=== PATIENT | male | born 1960 | race African-American/Black ===

== ENCOUNTER 2016-11-17 09:30 | Inpatient (IN) | payer OTHER ==
[2016-11-17 09:43] VITALS: BMI 38.3
--- NOTE | 2016-11-17 10:13 | PDOC ---
History of Present Illness - General Chief Complaint: Pain Stated Complaint: DIZZINESS, ABD PAIN Time Seen by Provider: 11/17/16 10:13 History Source: Patient Exam Limitations: No Limitations - History of Present Illness Travel History: No Initial Comments: 11/17/16 11:09 56 yo M with significant PMHx of HTN and acute pancreatitis 2/2 alcohol abuse. He states for the past 3 days he has worsening abdominal pain. Pain is 9/10 intermittent sharp epigastric pain that radiates to his back. Accompanied by shakes, nausea and vomiting. No alleviating or aggrivating factors. Has had this problem in past. Drinks appox. 750ml of vodka daily. Last drink was one day ago. He has been experiencing shakes as well. Non-productive cough. Denies CP, MORRISSEY, fevers or palpitations. Past History - Past Medical History Allergies/Adverse Reactions: Allergies Allergy/AdvReac Type Severity Reaction Status Date / Time No Known Allergies Allergy Verified 11/17/16 09:43 Home Medications: Ambulatory Orders Amlodipine Besylate [Norvasc -] 10 mg PO DAILY 11/10/14 Atenolol [Tenormin -] 50 mg PO DAILY 11/10/14 HTN: Yes Hypercholesterolemia: Yes Suicide Attempt (Hx): No Other medical history: Alcohol Abuse - Psycho/Social/Smoking Cessation Hx Anxiety: No Suicidal Ideation: No Smoking History: Never smoked Have you smoked in the past 12 months: No Information on smoking cessation initiated: No Hx Alcohol Use: Yes (daily) Drug/Substance Use Hx: Yes (marijuana) Substance Use Type: None Hx Substance Use Treatment: No (has never attended rehab or detox.) Abd/GI Specific PMHX - Complaint Specific PMHX Pancreatitis: Yes Review of Systems - Review of Systems Able to Perform ROS?: Yes Is the patient limited [place] proficient: No Constitutional: Yes: Malaise, Weakness Respiratory: Yes: Cough Cardiac (ROS): No: Chest Pain, Palpitations ABD/GI: Yes: Diarrhea, Nausea, Poor Appetite Neurological: Yes: Tremors All Other Systems: Reviewed and Negative *Physical Exam - Vital Signs Last Vital Signs Temp Pulse Resp BP Pulse Ox 98.7 F 83 19 128/84 97 11/17/16 09:41 11/17/16 09:41 11/17/16 09:41 11/17/16 09:41 11/17/16 09:41 - Physical Exam General Appearance: Yes: Mild Distress HEENT: positive: EOMI, APRIL Neck: positive: Supple Respiratory/Chest: positive: Lungs Clear, Normal Breath Sounds, Crackles (fine bibasilar). negative: Respiratory Distress, Accessory Muscle Use Cardiovascular: positive: Regular Rhythm, Regular Rate, S1, S2. negative: Edema , JVD, Murmur Vascular Pulses: Dorsalis-Pedis (R): 2+, Doralis-Pedis (L): 2+ Gastrointestinal/Abdominal: positive: Normal Bowel Sounds, Distended, Tenderness (epigastric) Extremity: positive: Normal Capillary Refill, Normal Inspection Integumentary: positive: Normal Color, Dry, Warm. 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 ) ED Treatment Course - LABORATORY CBC & Chemistry Diagram: 11/17/16 10:18 11/17/16 10:18 Medical Decision Making - Medical Decision Making 11/17/16 11:22 56 yo M with significant PMHx of HTN and acute pancreatitis 2/2 alcohol abuse. He states for the past 3 days he has worsening abdominal pain.Will get amylase and lipase to help r/o acute pancreatitis. Tremors will give Valium for acute ETOH withdrawl. CXR , EKG and trops sent to r/o cardiopulmonary etiology. *DC/Admit/Observation/Transfer Diagnosis at time of Disposition: Pancreatitis Qualifiers: Chronicity: acute Pancreatitis type: alcohol induced Acute pancreatitis complication: unspecified Qualified Code(s): K85.20 - Alcohol induced acute pancreatitis without necrosis or infection Alcohol withdrawal syndrome Qualifiers: Complication of substance-induced condition: with unspecified complication Qualified Code(s): F10.239 - Alcohol dependence with withdrawal, unspecified - Discharge Dispostion Condition at time of disposition: Stable Admit: Yes
[2016-11-17] MEDS ORDERED: diazePAM CARPU-JECT 10 MG/2 ML DISP.SYRIN IVPUSH ONE ×2 (10:29→11:06)
[2016-11-17] MEDS ORDERED: SODIUM CHLORIDE 1,000 ML IV STA (10:30)
[2016-11-17] MEDS ORDERED: diazePAM CARPU-JECT 10 MG/2 ML DISP.SYRIN ONE ×2 (10:31→11:06)
[2016-11-17] MEDS ORDERED: ONDANSETRON 4 MG/2 ML VIAL IVPUSH ONE (10:32)
[2016-11-17] MEDS ORDERED: ONDANSETRON 4 MG/2 ML VIAL ONE (10:36)
[2016-11-17 10:48] LABS: BASOPHIL 1.4 % (0-2.0); EOSINOPHIL 0.7 % (0-4.5); MCH 30.4 pg (25.7-33.7); MCHC 33.1 g/dl (32.0-35.9); MEAN CELL VOLUME 91.8 fl (80-96); MEAN PLT VOLUME 8.8 fl (7.5-11.1); PLATELET COUNT 108 K/MM3 (134-434); RDW 17.9 % (11.9-15.9); WHITE BLOOD COUNT 5.5 K/mm3 (4.0-10.0)
[2016-11-17 11:06] LABS: ALBUMIN 3.8 g/dl (3.4-5.0); AMYLASE 151 U/L (25-115); ANION GAP 11 (8-16); CALCIUM 9.7 mg/dL (8.5-10.1); CO2 26 mmol/L (21-32); COCKROFT - GAULT 118.38; CREATININE 1.2 mg/dL (0.7-1.3); GLUCOSE,RANDOM 108 mg/dL (74-106); SGPT/ALT 41 U/L (12-78)
[2016-11-17 11:09] LABS: ALK PHOS 291 U/L (45-117); BILIRUBIN,TOTAL 1.3 mg/dL (0.2-1.0); TOT PROT 8.8 g/dl (6.4-8.2)
[2016-11-17 11:12] LABS: SGOT/AST 94 U/L (15-37)
--- NOTE | 2016-11-17 11:20 | PDOC ---
Attending Attestation - Resident Resident Name: Gerson Chavez - ED Attending Attestation I have performed the following: I have examined & evaluated the patient, The case was reviewed & discussed with the resident, I agree w/resident's findings & plan, Exceptions are as noted - HPI HPI: 11/17/16 11:17 56-year-old male with history of alcohol abuse complicated by gastritis and pancreatitis in the past now presents with worsening generalized weakness, chest congestion with cough, and epigastric pain. Last EtOH intake was around 12 PM yesterday, reporting some tremors this morning. - Physicial Exam PE: 11/17/16 11:18 Afebrile. O2 sat 91% off oxygen, improves with oxygen Tremulous, but comfortable in stretcher speaking full sentences Slight basilar crackles, heart is regular Abdomen is distended but soft and not focally tender, no guarding or rebound - Medical Decision Making 11/17/16 11:19 Patient seen and evaluated with the resident. I agree with the overall evaluation, assessment, and management with the following summary of visit: 56-year-old male with history of alcoholism and pancreatitis presents with generalized weakness and epigastric pain, tremors. Presenting complaint of weakness epigastric pain could be recurrence of gastritis or pancreatitis, also concerning for possible cardiopulmonary etiology. Early withdrawal in the setting of no EtOH for the last 12 hours, vital signs and mental status are normal. Labs including lipase and troponin, urinalysis EKG, chest x-ray Valium for withdrawal Likely admission Heart Score/ECG Review #1 General ECG Interpretation: Sinus Rhythm, Normal Rate, Normal Intervals, No acute ischemic changes
[2016-11-17 11:36] LABS: LDH 407 U/L (87-241); TROPONIN I < 0.02 ng/ml (0.00-0.05)
--- NOTE | 2016-11-17 13:09 | EKG ---
Test Reason : Blood Pressure : / mmHG Vent. Rate : 074 BPM Atrial Rate : 074 BPM P-R Int : 162 ms QRS Dur : 086 ms QT Int : 342 ms P-R-T Axes : 054 -12 110 degrees QTc Int : 379 ms POOR DATA QUALITY, INTERPRETATION MAY BE ADVERSELY AFFECTED NORMAL SINUS RHYTHM NONSPECIFIC T WAVE ABNORMALITY ABNORMAL ECG WHEN COMPARED WITH ECG OF 10-NOV-2014 13:41, VENT. RATE HAS DECREASED BY 48 BPM Confirmed by SOREN SRINIVASAN MD ([id number]) on 11/17/2016 1:08:52 PM Referred By: Confirmed By:SOREN SRINIVASAN MD
[2016-11-17] MEDS ORDERED: chlordiazePOXIDE HCL 25 MG CAPSULE PO ONE (13:12)
[2016-11-17] MEDS ORDERED: chlordiazePOXIDE HCL 25 MG CAPSULE ONE (13:34)
[2016-11-17] MEDS ORDERED: POTASSIUM CHLORIDE 10 MEQ in DEXTROSE 5%-0.45% SALINE 1,000 ML IVPB SCH (16:00)
[2016-11-17] MEDS ORDERED: MEPERIDINE HCL CARPU-JECT 50 MG/1 ML DISP.SYRIN IM PRN (16:00)
[2016-11-17] MEDS: D5-1/2NS+10 MEQ KCL - 1,000 ML IV SCH (16:12)
[2016-11-17] MEDS: ONDANSETRON 4 MG/2 ML VIAL IVPB PRN (19:43)
[2016-11-18] MEDS: D5-1/2NS+10 MEQ KCL - 1,000 ML IV SCH ×3 (02:45→23:03)
[2016-11-18] MEDS: ONDANSETRON 4 MG/2 ML VIAL IVPB PRN (05:50)
[2016-11-18 07:04] LABS: BASOPHIL 0.7 % (0-2.0); EOSINOPHIL 0.8 % (0-4.5); MCH 30.2 pg (25.7-33.7); MCHC 32.9 g/dl (32.0-35.9); MEAN CELL VOLUME 91.8 fl (80-96); MEAN PLT VOLUME 9.2 fl (7.5-11.1); NEUTROPHILS 67.8 % (42.8-82.8); PLATELET COUNT 76 K/MM3 (134-434); RDW 17.1 % (11.9-15.9); WHITE BLOOD COUNT 6.6 K/mm3 (4.0-10.0)
[2016-11-18 07:29] LABS: ALBUMIN 3.4 g/dl (3.4-5.0); ALK PHOS 221 U/L (45-117); AMYLASE 136 U/L (25-115); ANION GAP 10 (8-16); BILIRUBIN,TOTAL 2.2 mg/dL (0.2-1.0); CALCIUM 8.6 mg/dL (8.5-10.1); CO2 26 mmol/L (21-32); COCKROFT - GAULT 129.14; CREATININE 1.1 mg/dL (0.7-1.3); GLUCOSE,RANDOM 101 mg/dL (74-106); SGOT/AST 52 U/L (15-37); SGPT/ALT 30 U/L (12-78)
--- NOTE | 2016-11-18 09:35 | HP ---
DATE OF ADMISSION: DATE OF DICTATION: 11/18/2016 A 56-year-old male, nonalcoholic, hypertensive, came to the emergency room with complaints of abdominal pain and throwing up. He was diagnosed to have acute pancreatitis, got admitted. About 2 years ago he was admitted with similar complaints. He is from his , has grownup son, not employed. PHYSICAL EXAMINATION: Vital Signs: BP 147/83, pulse 83, temperature 99, respirations 20. HEENT: Unremarkable. Neck: Supple. Lungs: Clear. Heart: S1, S2 normal. No S3, S4. Abdomen: Minimal tenderness in the epigastric area. Legs: No edema. Neurological: Examination grossly normal. LABORATORY REPORTS: WBC 6.6, hemoglobin 12, hematocrit 36, platelets 76. Chemistry: Electrolytes: Potassium 3.4. BUN and creatinine are 10/1.1. AST, ALT are 52 and 30. Amylase high at 151. Lipase 671. Chest x-ray: No infiltrate. IMPRESSION: Acute pancreatitis, alcohol abuse, hypertension. PLAN: Keep IV fluid. Will start liquid diet later. Librium and thiamine. Continue his blood pressure medicine. Nghia [id number]
[2016-11-18] MEDS: THIAMINE HCL 100 MG TABLET (FP) PO SCH (09:49)
[2016-11-18] MEDS: amLODIPine BESYLATE 10 MG TABLET (FP) PO SCH (09:49)
[2016-11-18] MEDS: ATENOLOL 50 MG TABLET (FP) PO SCH (09:49)
[2016-11-18] MEDS: chlordiazePOXIDE 5 MG CAPSULE PO SCH ×3 (11:22→23:23)
[2016-11-19] MEDS: chlordiazePOXIDE 5 MG CAPSULE PO SCH ×4 (06:00→23:35)
[2016-11-19] MEDS: THIAMINE HCL 100 MG TABLET (FP) PO SCH (09:35)
[2016-11-19] MEDS: D5-1/2NS+10 MEQ KCL - 1,000 ML IV SCH ×3 (09:35→21:32)
[2016-11-19] MEDS: amLODIPine BESYLATE 10 MG TABLET (FP) PO SCH ×2 (09:36→17:30)
[2016-11-19] MEDS: ATENOLOL 50 MG TABLET (FP) PO SCH ×2 (09:36→17:30)
[2016-11-19] MEDS: POTASSIUM CHLORIDE TABS 20 MEQ TABLET.ER (FP) PO SCH ×2 (18:53→21:32)
--- NOTE | 2016-11-19 19:52 | PN ---
Progress Note, Physician Chief Complaint: Feels better History of Present Illness: Admitted with acute pancreatits Feels better pain less,no vomiting - Current Medication List Current Medications: Active Medications Amlodipine Besylate (Norvasc -) 10 mg PO DAILY [facility] Last Admin: 11/19/16 17:30 Dose: 10 mg Atenolol (Tenormin -) 50 mg PO DAILY [facility] Last Admin: 11/19/16 17:30 Dose: 50 mg Chlordiazepoxide HCl (Librium -) 15 mg PO Q6HPO [facility] Last Admin: 11/19/16 17:33 Dose: 15 mg Potassium Chloride/Dextrose/Sod Cl (D5-1/2ns+10 Meq Kcl -) 1,000 mls @ 100 mls/ hr IV ASDIR [facility] Last Admin: 11/19/16 17:31 Dose: Not Given Meperidine HCl (Demerol Injection -) 50 mg IM Q6H PRN PRN Reason: PAIN Last Admin: 11/17/16 18:04 Dose: 50 mg Ondansetron HCl (Zofran Injection) 4 mg IVPB Q8H PRN PRN Reason: NAUSEA AND/OR VOMITING Last Admin: 11/18/16 05:50 Dose: 4 mg Potassium Chloride (K-Dur -) 20 meq PO BID [facility] Last Admin: 11/19/16 18:53 Dose: 20 meq Thiamine HCl (Vitamin B1 -) 100 mg PO DAILY [facility] Last Admin: 11/19/16 09:35 Dose: 100 mg - Objective Vital Signs: Vital Signs Temperature 98.7 F 11/19/16 13:55 Pulse Rate 96 H 11/19/16 13:55 Respiratory Rate 20 11/19/16 09:00 Blood Pressure 150/76 11/19/16 13:55 O2 Sat by Pulse Oximetry (%) 97 11/19/16 09:00 Constitutional: Yes: No Distress Eyes: Yes: WNL HENT: Yes: WNL Neck: Yes: WNL Cardiovascular: Yes: WNL Respiratory: Yes: WNL Gastrointestinal: Yes: Normal Bowel Sounds Labs: CBC, BMP 11/18/16 06:30 11/18/16 06:30 Assessment/Plan Advance diet
[2016-11-20] MEDS: chlordiazePOXIDE 5 MG CAPSULE PO SCH ×4 (06:11→23:38)
[2016-11-20] MEDS: D5-1/2NS+10 MEQ KCL - 1,000 ML IV SCH (06:17)
[2016-11-20] MEDS ORDERED: PT OWN MED DRAWER 7, Y5N ONE (06:53)
[2016-11-20 08:17] LABS: MCH 30.4 pg (25.7-33.7); MCHC 32.9 g/dl (32.0-35.9); MEAN CELL VOLUME 92.3 fl (80-96); MEAN PLT VOLUME 10.2 fl (7.5-11.1); PLATELET COUNT 70 K/MM3 (134-434); RDW 16.5 % (11.9-15.9); WHITE BLOOD COUNT 7.9 K/mm3 (4.0-10.0)
[2016-11-20 08:52] LABS: CALCIUM 8.9 mg/dL (8.5-10.1)
[2016-11-20 08:54] LABS: COCKROFT - GAULT 129.14; CREATININE 1.1 mg/dL (0.7-1.3)
[2016-11-20] MEDS: ATENOLOL 50 MG TABLET (FP) PO SCH (09:33)
[2016-11-20] MEDS: THIAMINE HCL 100 MG TABLET (FP) PO SCH (09:34)
[2016-11-20] MEDS: amLODIPine BESYLATE 10 MG TABLET (FP) PO SCH (09:34)
[2016-11-20] MEDS: POTASSIUM CHLORIDE TABS 20 MEQ TABLET.ER (FP) PO SCH ×2 (09:34→21:40)
--- NOTE | 2016-11-20 13:00 | PN ---
Progress Note, Physician Chief Complaint: Pain and selling Lt knee History of Present Illness: No abdominal pain,tolerate regular diet - Current Medication List Current Medications: Active Medications Amlodipine Besylate (Norvasc -) 10 mg PO DAILY [facility] Last Admin: 11/20/16 09:34 Dose: 10 mg Atenolol (Tenormin -) 50 mg PO DAILY [facility] Last Admin: 11/20/16 09:33 Dose: 50 mg Chlordiazepoxide HCl (Librium -) 15 mg PO Q6HPO [facility] Last Admin: 11/20/16 11:50 Dose: 15 mg Potassium Chloride/Dextrose/Sod Cl (D5-1/2ns+10 Meq Kcl -) 1,000 mls @ 100 mls/ hr IV ASDIR [facility] Last Admin: 11/20/16 06:17 Dose: 100 mls/hr Meperidine HCl (Demerol Injection -) 50 mg IM Q6H PRN PRN Reason: PAIN Last Admin: 11/17/16 18:04 Dose: 50 mg Ondansetron HCl (Zofran Injection) 4 mg IVPB Q8H PRN PRN Reason: NAUSEA AND/OR VOMITING Last Admin: 11/18/16 05:50 Dose: 4 mg Potassium Chloride (K-Dur -) 20 meq PO BID [facility] Last Admin: 11/20/16 09:34 Dose: 20 meq Thiamine HCl (Vitamin B1 -) 100 mg PO DAILY [facility] Last Admin: 11/20/16 09:34 Dose: 100 mg - Objective Vital Signs: Vital Signs Temperature 99.0 F 11/20/16 05:59 Pulse Rate 73 11/20/16 05:59 Respiratory Rate 20 11/20/16 05:59 Blood Pressure 127/70 11/20/16 05:59 O2 Sat by Pulse Oximetry (%) 97 11/19/16 21:00 Constitutional: Yes: No Distress Eyes: Yes: WNL HENT: Yes: WNL Neck: Yes: WNL Cardiovascular: Yes: WNL Respiratory: Yes: WNL Gastrointestinal: Yes: Soft ...Rectal Exam: Yes: Deferred Genitourinary: Yes: WNL Musculoskeletal: Yes: Joint Swelling Edema: LLE: Trace Integumentary: Yes: WNL Neurological: Yes: Alert Psychiatric: Yes: Alert Labs: CBC, BMP 11/20/16 07:00 11/20/16 07:00 Assessment/Plan Possible gout,will start colchicine DC IV
[2016-11-20] MEDS ORDERED: COLCHICINE 0.6 MG TABLET (FP) PO ONE (13:01)
[2016-11-20] MEDS ORDERED: NAPROXEN 500 MG TABLET (FP) PO ONE (21:30)
[2016-11-21] MEDS: chlordiazePOXIDE 5 MG CAPSULE PO SCH ×3 (05:54→17:55)
[2016-11-21] MEDS: THIAMINE HCL 100 MG TABLET (FP) PO SCH (09:36)
[2016-11-21] MEDS: POTASSIUM CHLORIDE TABS 20 MEQ TABLET.ER (FP) PO SCH ×2 (09:36→22:15)
[2016-11-21] MEDS: amLODIPine BESYLATE 10 MG TABLET (FP) PO SCH (09:36)
[2016-11-21] MEDS: ATENOLOL 50 MG TABLET (FP) PO SCH (09:36)
--- NOTE | 2016-11-21 13:58 | PN ---
Progress Note, Physician Chief Complaint: C/O Lt knee pain History of Present Illness: Alcoholic admitted with Ac pancreatitis Now has gout - Current Medication List Current Medications: Active Medications Amlodipine Besylate (Norvasc -) 10 mg PO DAILY [facility] Last Admin: 11/21/16 09:36 Dose: 10 mg Atenolol (Tenormin -) 50 mg PO DAILY [facility] Last Admin: 11/21/16 09:36 Dose: 50 mg Chlordiazepoxide HCl (Librium -) 15 mg PO Q6HPO [facility] Last Admin: 11/21/16 11:51 Dose: 15 mg Ondansetron HCl (Zofran Injection) 4 mg IVPB Q8H PRN PRN Reason: NAUSEA AND/OR VOMITING Last Admin: 11/18/16 05:50 Dose: 4 mg Potassium Chloride (K-Dur -) 20 meq PO BID [facility] Last Admin: 11/21/16 09:36 Dose: 20 meq Thiamine HCl (Vitamin B1 -) 100 mg PO DAILY [facility] Last Admin: 11/21/16 09:36 Dose: 100 mg - Objective Vital Signs: Vital Signs Temperature 98.2 F 11/21/16 09:00 Pulse Rate 94 H 11/21/16 09:00 Respiratory Rate 18 11/21/16 09:00 Blood Pressure 126/84 11/21/16 09:00 O2 Sat by Pulse Oximetry (%) 97 11/20/16 21:00 Constitutional: Yes: No Distress, Mild Distress Eyes: Yes: WNL, Occular Prosthesis Neck: Yes: WNL Cardiovascular: Yes: WNL Respiratory: Yes: WNL Gastrointestinal: Yes: Normal Bowel Sounds ...Rectal Exam: Yes: WNL Genitourinary: Yes: WNL Extremities: Yes: Other (Lt knee has minimal swelling) Edema: No Integumentary: Yes: WNL Neurological: Yes: Alert ...Motor Strength: WNL Labs: CBC, BMP 11/20/16 07:00 11/20/16 07:00
[2016-11-21] MEDS ORDERED: COLCHICINE 0.6 MG TABLET (FP) PO ONE (15:00)
[2016-11-21] MEDS: INDOMETHACIN 50 MG CAPSULE PO SCH (17:55)
[2016-11-21] MEDS ORDERED: PT OWN MED DRAWER 7, Y5N ONE (18:14)
[2016-11-22] MEDS: chlordiazePOXIDE 5 MG CAPSULE PO SCH ×5 (00:33→23:33)
[2016-11-22] MEDS ORDERED: PT OWN MED DRAWER 7, Y5N ONE (09:18)
--- NOTE | 2016-11-22 09:40 | PN ---
Progress Note, Physician Chief Complaint: Pain Lt knee History of Present Illness: Admitted with acute pancreatitis Has gout - Current Medication List Current Medications: Active Medications Amlodipine Besylate (Norvasc -) 10 mg PO DAILY [facility] Last Admin: 11/21/16 09:36 Dose: 10 mg Atenolol (Tenormin -) 50 mg PO DAILY [facility] Last Admin: 11/21/16 09:36 Dose: 50 mg Chlordiazepoxide HCl (Librium -) 15 mg PO Q6HPO [facility] Last Admin: 11/22/16 06:18 Dose: 15 mg Indomethacin (Indocin -) 50 mg PO BIDWM [facility] Last Admin: 11/21/16 17:55 Dose: 50 mg Ondansetron HCl (Zofran Injection) 4 mg IVPB Q8H PRN PRN Reason: NAUSEA AND/OR VOMITING Last Admin: 11/18/16 05:50 Dose: 4 mg Potassium Chloride (K-Dur -) 20 meq PO BID [facility] Last Admin: 11/21/16 22:15 Dose: 20 meq Thiamine HCl (Vitamin B1 -) 100 mg PO DAILY [facility] Last Admin: 11/21/16 09:36 Dose: 100 mg - Objective Vital Signs: Vital Signs Temperature 98.2 F 11/22/16 06:02 Pulse Rate 111 H 11/22/16 06:02 Respiratory Rate 20 11/22/16 06:02 Blood Pressure 129/57 11/22/16 06:02 O2 Sat by Pulse Oximetry (%) 97 11/21/16 22:00 Constitutional: Yes: Moderate Distress Eyes: Yes: WNL HENT: Yes: WNL Neck: Yes: WNL Cardiovascular: Yes: WNL Respiratory: Yes: WNL Gastrointestinal: Yes: Normal Bowel Sounds ...Rectal Exam: Yes: Deferred Genitourinary: Yes: WNL Extremities: Yes: Other (Lt knee swelling) Peripheral Pulses WNL: Yes Neurological: Yes: Alert Labs: CBC, BMP 11/20/16 07:00 11/20/16 07:00 Assessment/Plan PT for ambulation
[2016-11-22] MEDS: amLODIPine BESYLATE 10 MG TABLET (FP) PO SCH (09:46)
[2016-11-22] MEDS: ATENOLOL 50 MG TABLET (FP) PO SCH (09:46)
[2016-11-22] MEDS: THIAMINE HCL 100 MG TABLET (FP) PO SCH (09:46)
[2016-11-22] MEDS: INDOMETHACIN 50 MG CAPSULE PO SCH ×2 (09:46→17:06)
[2016-11-22] MEDS: POTASSIUM CHLORIDE TABS 20 MEQ TABLET.ER (FP) PO SCH ×2 (09:46→21:57)
[2016-11-22] MEDS ORDERED: COLCHICINE 0.6 MG TABLET (FP) PO ONE (10:30)
[2016-11-23] MEDS: chlordiazePOXIDE 5 MG CAPSULE PO SCH ×2 (05:47→12:59)
[2016-11-23 06:08] VITALS: BP 117/77; PULSE 111; TEMP 98.9
[2016-11-23 08:28] LABS: MCH 30.4 pg (25.7-33.7); MCHC 33.1 g/dl (32.0-35.9); MEAN PLT VOLUME 10.7 fl (7.5-11.1); PLATELET COUNT 140 K/MM3 (134-434); RDW 15.7 % (11.9-15.9); WHITE BLOOD COUNT 8.8 K/mm3 (4.0-10.0)
[2016-11-23] MEDS ORDERED: PT OWN MED DRAWER 7, Y5N ONE (08:56)
[2016-11-23 09:02] LABS: CALCIUM 8.9 mg/dL (8.5-10.1)
[2016-11-23] MEDS: INDOMETHACIN 50 MG CAPSULE PO SCH (09:03)
[2016-11-23 09:11] LABS: ALBUMIN 2.8 g/dl (3.4-5.0); ALK PHOS 367 U/L (45-117); ANION GAP 15 (8-16); BILIRUBIN,TOTAL 2.8 mg/dL (0.2-1.0); CO2 20 mmol/L (21-32); COCKROFT - GAULT 118.38; CREATININE 1.2 mg/dL (0.7-1.3); GLUCOSE,RANDOM 86 mg/dL (74-106); SGOT/AST 33 U/L (15-37); SGPT/ALT 29 U/L (12-78); TOT PROT 7.3 g/dl (6.4-8.2)
[2016-11-23 09:24] LABS: URIC ACID 8.1 mg/dL (2.6-7.2)
--- NOTE | 2016-11-23 09:33 | DS ---
Physical Examination Vital Signs: Vital Signs Temperature 98.9 F 11/23/16 06:07 Pulse Rate 111 H 11/23/16 06:07 Respiratory Rate 18 11/23/16 06:07 Blood Pressure 117/77 11/23/16 06:07 O2 Sat by Pulse Oximetry (%) 97 11/22/16 21:00 Findings/Remarks: Ac pancratitis resolved Gout pain improved Constitutional: Yes: No Distress HENT: Yes: WNL Neck: Yes: WNL Cardiovascular: Yes: WNL Respiratory: Yes: WNL Gastrointestinal: Yes: Normal Bowel Sounds ...Rectal Exam: Yes: Deferred Musculoskeletal: Yes: Joint Swelling, Muscle Weakness Edema: No Peripheral Pulses WNL: Yes Neurological: Yes: Alert Psychiatric: Yes: WNL Labs: CBC, BMP 11/23/16 07:45 11/23/16 07:45 Discharge Summary Reason For Visit: ALCOHOL WITHDRAWAL SYNDROME,PANCREATITIS Current Active Problems Alcohol withdrawal (Acute) Pancreatitis (Acute) - Instructions Referrals: Jaskaran Aguayo MD [Primary Care Provider] - - Home Medications Comprehensive Discharge Medication List: Ambulatory Orders Amlodipine Besylate [Norvasc -] 10 mg PO DAILY 11/10/14 Atenolol [Tenormin -] 50 mg PO DAILY 11/10/14
[2016-11-23] MEDS: THIAMINE HCL 100 MG TABLET (FP) PO SCH (09:43)
[2016-11-23] MEDS: ATENOLOL 50 MG TABLET (FP) PO SCH (09:44)
[2016-11-23] MEDS: POTASSIUM CHLORIDE TABS 20 MEQ TABLET.ER (FP) PO SCH (09:44)
[2016-11-23] MEDS: amLODIPine BESYLATE 10 MG TABLET (FP) PO SCH (09:44)
== END 2016-11-23 13:50 | disposition home or self-care (01) | DRG 282 ==
LOC: JER 09:30 → JERBED 13:15 → J6S 14:32
PROVIDERS: ADMIT Internal Medicine; ATTEND Internal Medicine
PROC: HZ2ZZZZ Detoxification Services for Substance Abuse Treatment (ICD-10-PCS; principal; 2016-11-17)
DX: K85.20 Alcohol induced acute pancreatitis without necrosis or infection (principal); F10.230 Alcohol dependence with withdrawal, uncomplicated; I10 Essential (primary) hypertension; F12.10 Cannabis abuse, uncomplicated; M10.9 Gout, unspecified; M25.562 Pain in left knee
CPT/HCPCS: 36415; 71010-TC; 80048; 80053; 82150; 83615; 83690; 83880; 84484; 84550; 85025; 85027; 93005; 93010; 97116-GP; 97161-GP; 99285-25

== ENCOUNTER 2017-11-12 20:04 | Emergency (ER) | payer OTHER ==
[2017-11-12 20:16] VITALS: BP 132/91; PULSE 82; TEMP 98.2; BMI 38.6
--- NOTE | 2017-11-12 21:04 | PDOC ---
History of Present Illness - General Chief Complaint: Weakness Stated Complaint: FATIGUE Time Seen by Provider: 11/12/17 20:29 History Source: Patient - History of Present Illness Initial Comments: 11/12/17 21:08 57 year old male with a PMH of HTN and alcohol abuse presents to our ED c/o 1 day h/o abdominal pain as well as palpitations during bowel movements. Patient states the pain is epigastric, constant, 10/10 with no radiation. Patient notes some associated nausea but no vomiting. Denies any diarrhea/constipation , dysuria/hematuria. Patient is tolerating PO intake and states his last bowel movement was this morning and was normal. ROS is positive for non-productive cough which is chronic. Patient notes he was told by his PMD he needed a colonoscopy. Denies any bloody bowel movements or family h/o colon CA. Patient denies any chest pain, shortness of breath, recent travel or sick contacts. NKDA Surgical: denies Social: unspecified vodka daily, 11/12/17 21:15 Past History - Past Medical History Allergies/Adverse Reactions: Allergies Allergy/AdvReac Type Severity Reaction Status Date / Time No Known Allergies Allergy Verified 11/12/17 20:17 Home Medications: Ambulatory Orders Amlodipine Besylate [Norvasc -] 10 mg PO DAILY 11/10/14 Atenolol [Tenormin -] 50 mg PO DAILY 11/10/14 Omeprazole 20 mg PO BID #10 tablet. 11/13/17 HTN: Yes Hypercholesterolemia: Yes - Suicide/Smoking/Psychosocial Hx Smoking History: Never smoked Have you smoked in the past 12 months: No Information on smoking cessation initiated: No Hx Alcohol Use: No Drug/Substance Use Hx: No Substance Use Type: None Hx Substance Use Treatment: No (has never attended rehab or detox.) *Physical Exam - Vital Signs Last Vital Signs Temp Pulse Resp BP Pulse Ox 98.2 F 82 16 132/91 99 11/12/17 20:12 11/12/17 20:12 11/12/17 20:12 11/12/17 20:12 11/12/17 20:12 ED Treatment Course - LABORATORY CBC & Chemistry Diagram: 11/12/17 21:30 11/12/17 21:30 Medical Decision Making - Medical Decision Making 11/13/17 00:35 57 year old male - GERD w/ Valsalva *DC/Admit/Observation/Transfer Diagnosis at time of Disposition: GERD (gastroesophageal reflux disease) - Discharge Dispostion Disposition: HOME Condition at time of disposition: Good Admit: No - Prescriptions Prescriptions: Omeprazole 20 mg PO BID #10 tablet.dr - Referrals Referrals: Jaskaran Aguayo MD [Primary Care Provider] - - Patient Instructions Printed Discharge Instructions: Heartburn -- Overview Additional Instructions: A prescription has been called to your pharmacy for relief of your abdominal pain. Follow up with your primary care doctor in the next 48 hours. Return to the Emergency Department for any new/worsening/concerning symptoms. - Post Discharge Activity
[2017-11-12] MEDS ORDERED: SODIUM CHLORIDE 0.9% 500 ML INFUS.BAG IV ONE (21:06)
--- NOTE | 2017-11-12 21:25 | PDOC ---
Attending Attestation - Resident Resident Name: Dena Gandara - ED Attending Attestation I have performed the following: I have examined & evaluated the patient, The case was reviewed & discussed with the resident, I agree w/resident's findings & plan, Exceptions are as noted - HPI HPI: 11/14/17 20:28 Mr Tirado is a 57 yo M h/o HTN, HLD and alcohol abuse who presents to our ED c/ o 1 day h/o abdominal pain Pt states he has for some time noted palpitations when he has a bowel movement in the morning Patient states he has noted epigastric pain, rated 10/10, constant (+) nausea nor vomiting Pt admits to alcohol use this evening Pt denies chest pain, shortness of breath Patient is tolerating PO intake and states his last bowel movement was this morning and was normal. ROS is positive for non-productive cough which is chronic. Pt has reported these symptoms to PMD who recommended Colonoscopy in the past - Physicial Exam PE: 11/14/17 20:38 PT is awake and alert Pt RRR Lungs are clear to auscultation no epigastric tenderness Neurologically intact - Medical Decision Making 11/14/17 20:38 Mr Tirado is a 57 yo M presenting to the ER with a complaints of palpitations, epigastric pain DD: ACS unlikely, pancreatitis, alcoholic gastritis Will do: Labs EKG Protonix IV hydration Re assess 11/14/17 20:42 Laboratory Tests 11/12/17 11/12/17 11/12/17 21:30 21:30 21:30 WBC 4.7 D Hgb 11.8 Hct 34.6 L Plt Count 152 Sodium 141 Potassium 3.4 L Chloride 110 H Carbon Dioxide 24 BUN 9 D Creat Clearance w eGFR > 60 Random Glucose 88 Total Bilirubin 0.6 D Alkaline Phosphatase 239 H D Creatine Kinase 549 H Creatine Kinase Index 0.5 CK-MB (CK-2) 2.790 Troponin I < 0.02 Lipase [address] Aguayo will discharge to home Pt to follow up with PMD Return to the ER for any other concerns or complaints Clinical Impression: gastritis, initial presentation palpitations, initial presentation
[2017-11-12 21:42] LABS: BASO % 1.5 % (0-2.0); EOS % 1.2 % (0-4.5); HEMATOCRIT 34.6 % (35.4-49); HEMOGLOBIN 11.8 GM/dL (11.7-16.9); MCHC 34.2 g/dl (32.0-35.9); MEAN CELL VOLUME 87.7 fl (80-96); MEAN PLT VOLUME 8.5 fl (7.5-11.1); MONO % 12.3 % (3.8-10.2); PLATELET COUNT 152 K/MM3 (134-434); RBC 3.94 M/mm3 (4.00-5.60); RDW 16.6 % (11.9-15.9); WHITE BLOOD COUNT 4.7 K/mm3 (4.0-10.0)
[2017-11-12 22:10] LABS: N-TERMINAL BNP 14.67 pg/ml (5-125)
[2017-11-12 22:11] LABS: ALBUMIN 3.8 g/dl (3.4-5.0); ANION GAP 7 (8-16); BILIRUBIN,TOTAL 0.6 mg/dL (0.2-1.0); BLOOD UREA NITROGEN 9 mg/dL (7-18); CALCIUM 8.9 mg/dL (8.5-10.1); CHLORIDE 110 mmol/L (98-107); CO2 24 mmol/L (21-32); CREATININE 1.2 mg/dL (0.7-1.3); GLUCOSE,RANDOM 88 mg/dL (74-106); LIPASE 126 U/L (73-393); POTASSIUM 3.4 mmol/L (3.5-5.1); SGOT/AST 94 U/L (15-37); SGPT/ALT 35 U/L (12-78); SODIUM 141 mmol/L (136-145); TOT PROT 8.8 g/dl (6.4-8.2)
[2017-11-12 22:12] LABS: ALK PHOS 239 U/L (45-117)
--- NOTE | 2017-11-14 12:29 | EKG ---
Test Reason : Blood Pressure : / mmHG Vent. Rate : 109 BPM Atrial Rate : 109 BPM P-R Int : 162 ms QRS Dur : 084 ms QT Int : 340 ms P-R-T Axes : 062 -08 091 degrees QTc Int : 457 ms SINUS TACHYCARDIA NONSPECIFIC T WAVE ABNORMALITY ABNORMAL ECG WHEN COMPARED WITH ECG OF 17-NOV-2016 10:39, QT HAS LENGTHENED Confirmed by AMALIA MAYFIELD MD ([id number]) on 11/14/2017 12:28:45 PM Referred By: Confirmed By:AMALIA MAYFIELD MD
== END 2017-11-13 00:36 | disposition home or self-care (01) ==
LOC: JER 20:04
DX: K21.9 Gastro-esophageal reflux disease without esophagitis (principal); I10 Essential (primary) hypertension; E78.00 Pure hypercholesterolemia, unspecified
CPT/HCPCS: 36415; 71045-TC-FY; 80053; 82550; 82553; 83605; 83690; 83880; 84484; 85025; 93005; 93010; 99283-25

== ENCOUNTER 2018-03-01 15:28 | Inpatient (IN) | payer OTHER ==
--- NOTE | 2018-03-01 15:58 | PDOC ---
History of Present Illness - General Chief Complaint: Back Pain Stated Complaint: LOWER BACK PAIN Time Seen by Provider: 03/01/18 15:58 - History of Present Illness Initial Comments: The patient is a 57M with a history of HTN and gout who presents with approx 10d of lower back pain that radiates towards his right gluteus after a three hour bus ride. He describes the pain as sharp, originating in his lower mid- back and radiates towards his left gluteus and when exacerbated will radiate to his right thigh. He reports that he has chronic low back pain that, prior to this trip, was radiating toward his left gluteus. He was seen by his PCP, received a steroid injection, and the left sided pain has since resolved. He denies fevers/chills, N/V/C/D, blood in his stool, dysuria, hematuria. 03/01/18 21:31 Past History - Past Medical History Allergies/Adverse Reactions: Allergies Allergy/AdvReac Type Severity Reaction Status Date / Time No Known Allergies Allergy Verified 11/12/17 20:17 Home Medications: Ambulatory Orders Amlodipine Besylate [Norvasc -] 10 mg PO DAILY 11/10/14 Atenolol [Tenormin -] 50 mg PO DAILY 11/10/14 Omeprazole 20 mg PO BID #10 tablet. 11/13/17 COPD: No HTN: Yes Hypercholesterolemia: Yes - Immunization History Immunization Up to Date: No - Suicide/Smoking/Psychosocial Hx Smoking History: Never smoked Have you smoked in the past 12 months: No Information on smoking cessation initiated: No Hx Alcohol Use: No Drug/Substance Use Hx: No Substance Use Type: None Hx Substance Use Treatment: No (has never attended rehab or detox.) Review of Systems - Review of Systems Able to Perform ROS?: Yes Comments:: GENERAL/CONSTITUTIONAL: No fever or chills. No weakness HEAD, EYES, EARS, NOSE AND THROAT: No change in vision. No ear pain or discharge. No sore throat CARDIOVASCULAR: No chest pain or shortness of breath RESPIRATORY: No cough, wheezing, or hemoptysis GASTROINTESTINAL: No nausea, vomiting, diarrhea or constipation GENITOURINARY: No dysuria, frequency, or change in urination MUSCULOSKELETAL: per HPI SKIN: No rash NEUROLOGIC: No headache, vertigo, loss of consciousness, or change in strength/ sensation ENDOCRINE: No increased thirst. No abnormal weight change HEMATOLOGIC/LYMPHATIC: No anemia, easy bleeding, or history of blood clots ALLERGIC/IMMUNOLOGIC: No hives or skin allergy 03/03/18 09:20 *Physical Exam - Vital Signs Last Vital Signs Temp Pulse Resp BP Pulse Ox 100.0 F H 84 16 159/102 100 03/01/18 15:48 03/01/18 15:48 03/01/18 15:48 03/01/18 15:48 03/01/18 15:48 - Physical Exam Comments: GENERAL: Awake, alert, and fully oriented, in no acute distress HEAD: No signs of trauma, normocephalic, atraumatic EYES: PERRLA, EOMI, sclera anicteric, conjunctiva clear ENT: Auricles normal inspection, hearing grossly normal, nares patent, oropharynx clear without exudates. Moist mucosa NECK: Normal ROM, supple, no lymphadenopathy LUNGS: No distress, speaks full sentences, clear to auscultation bilaterally HEART: Regular rate and rhythm, normal S1 and S2, no murmur appreciated, peripheral pulses normal and equal bilaterally ABDOMEN: Soft, nontender, normoactive bowel sounds. No guarding, no rebound EXTREMITIES : Limited flextion of RLE 2/2 pain, able to achieve approx 20 degrees initially. Otherwise normal inspection, normal range of motion in other extremities, no edema. No clubbing or cyanosis NEUROLOGICAL: Cranial nerves II through XII grossly intact. Normal speech, unable to ambulate 2/2 pain, no focal sensorimotor deficits SKIN: Warm, Dry, normal turgor, no rashes or lesions noted 03/03/18 09:22 ED Treatment Course - LABORATORY CBC & Chemistry Diagram: 03/06/18 06:00 03/06/18 06:00 Medical Decision Making - Medical Decision Making The patient is a 57M with a history of HTN who presents with approx 10d of lower back pain and 1d of fever Pain improved s/p Toradol and Percocet However patient unable to ambulate 2/2 pain. Further no source of patient's fever identified at this time. Plan to admit for observation 03/01/18 18:43 *DC/Admit/Observation/Transfer Diagnosis at time of Disposition: Back pain Qualifiers: Back pain location: low back pain Chronicity: unspecified Back pain laterality : right Sciatica presence: unspecified whether sciatica present Qualified Code(s ): M54.5 - Low back pain - Discharge Dispostion Condition at time of disposition: Guarded Decision to Admit order: Yes - Referrals - Patient Instructions - Post Discharge Activity
[2018-03-01] MEDS ORDERED: IBUPROFEN 400 MG TABLET (FP) PO ONE (16:17)
[2018-03-01] MEDS ORDERED: LIDOCAINE 5% TOPICAL PATCH TP ONE (16:17)
[2018-03-01] MEDS ORDERED: KETOROLAC TROMETHAMINE 30 MG/1 ML VIAL IVPUSH ONE (16:46)
[2018-03-01] MEDS ORDERED: LIDOCAINE 5% TOPICAL PATCH ONE (17:13)
[2018-03-01] MEDS ORDERED: KETOROLAC TROMETHAMINE 30 MG/1 ML VIAL ONE (17:13)
[2018-03-01 17:31] LABS: HEMATOCRIT 33.3 % (35.4-49); MEAN CELL VOLUME 84.9 fl (80-96); MEAN PLT VOLUME 9.6 fl (7.5-11.1); PLATELET COUNT 304 K/MM3 (134-434); RBC 3.93 M/mm3 (4.00-5.60); WHITE BLOOD COUNT 9.7 K/mm3 (4.0-10.0)
[2018-03-01 18:23] LABS: ANION GAP 11 (8-16); BLOOD UREA NITROGEN 15 mg/dL (7-18); CALCIUM 10.1 mg/dL (8.5-10.1); CHLORIDE 105 mmol/L (98-107); CO2 23 mmol/L (21-32); GLUCOSE,RANDOM 87 mg/dL (74-106); LIPASE 72 U/L (73-393); SODIUM 139 mmol/L (136-145)
[2018-03-01 18:26] LABS: ALK PHOS 514 U/L (45-117); BILIRUBIN,TOTAL 1.1 mg/dL (0.2-1.0); SGPT/ALT 31 U/L (12-78); TOT PROT 8.9 g/dl (6.4-8.2)
[2018-03-01 18:31] LABS: SGOT/AST 32 U/L (15-37)
--- NOTE | 2018-03-01 18:41 | PDOC ---
Attending Attestation - Resident Resident Name: Shane Sanchez - ED Attending Attestation I have performed the following: I have examined & evaluated the patient, The case was reviewed & discussed with the resident, I agree w/resident's findings & plan, Exceptions are as noted <Veda Rogers - Last Filed: 03/01/18 18:41> - HPI HPI: 03/01/18 18:46 The patient is a 57 year old male with a significant past medical history of hypertension, hypercholesterolemia, chronic lower back pain (2009 MRI revealed L2 issues, did not follow up with surgery), who presents to the emergency department [facility] complaining of right sided lower back pain. The patient describes the pain as tingling in sensation and radiating to his right thigh. He reports that the lower back pain began 1.5 weeks ago initially in the left side radiating to left thigh, for which, Dr. Estevez gave cortisol shot in left glute with relief. He presents today to be evaluated for new right sided back pain. His PCP prescribed oxycodone but he states that it only makes him sleepy does not make pain go away. Patient endorses recent travel by bus to [place] 2 weeks ago with BLE edema s/p. He reports that for the past 2 days he has been immobilized due to the pain, unable to leave the house to make appointment today and has been in bed. Denies chest pain, shortness of breath, headache, and dizziness. Denies fevers, chills, nausea, vomiting. Denies urinary/bowel changes. Denies LE weakness. Allergies: NKA Past surgical history: none reported Social history: No reported cigarette, alcohol, or drug use. PCP: Dr. Estevez - Physicial Exam PE: 03/01/18 18:54 GENERAL: Awake, alert, and fully oriented, in no acute distress HEAD: No signs of trauma EYES: PERRLA, EOMI, sclera anicteric, conjunctiva clear ENT: Auricles normal inspection, hearing grossly normal, nares patent. Moist mucosa NECK: Normal ROM, supple, no lymphadenopathy, JVD, or masses LUNGS: Breath sounds equal, clear to auscultation bilaterally. No wheezes, and no crackles HEART: Regular rate and rhythm, normal S1 and S2, no murmurs, rubs or gallops ABDOMEN: Obese, Soft, nontender, normoactive bowel sounds. No guarding, no rebound. No masses EXTREMITIES: Normal range of motion otherwise, no edema. No erythema or tenderness. DP/PT pulses 2+ and symmetric. Warm and well perfused. MUSCULOSKELETAL: (+)Right lumbosacral paraspinal muscle spasm and tenderness. No midline spinal tenderness. NEUROLOGICAL: (+)Right straight leg raise. 5/5 strength BLE, on hip flexion sensation intact. Moves all extremities. Normal speech, normal gait. awake alert. SKIN: Warm, Dry, normal turgor, no rashes or lesions noted. <Ethel Connell - Last Filed: 03/01/18 19:01> Attestations - Attestations 03/01/18 18:53 Documentation prepared by Ethel Connell, acting as biomedical engineer for Veda Rogers MD. <Ethel Connell - Last Filed: 03/01/18 19:01>
[2018-03-01] MEDS ORDERED: METHOCARBAMOL 500 MG TABLET PO ONE (18:44)
[2018-03-01] MEDS ORDERED: diazePAM 5 MG TABLET PO ONE (18:55)
[2018-03-01] MEDS ORDERED: diazePAM 5 MG TABLET ONE (19:48)
[2018-03-01 19:56] LABS: URINE APPEARANCE CLEAR; URINE BILIRUBIN NEGATIVE (<2.0 mg/dL); URINE COLOR AMBER; URINE GLUCOSE (UA) NEGATIVE (NEGATIVE); URINE KETONE NEGATIVE (NEGATIVE); URINE LEUK ESTERASE NEGATIVE (NEGATIVE); URINE NITRITE NEGATIVE (NEGATIVE); URINE UROBILINOGEN 4.0 E.U/dl mg/dL (0.2-1.0)
[2018-03-01 20:02] LABS: URINE PROTEIN 1+ (NEGATIVE)
[2018-03-01 20:07] LABS: URINE MUCUS FEW
[2018-03-01] MEDS ORDERED: LIDOCAINE PATCH REMOVAL MC SCH (22:00)
[2018-03-02] MEDS: diazePAM 5 MG TABLET PO SCH ×4 (02:51→21:26)
[2018-03-02] MEDS: oxyCODONE HCL 5 MG TABLET PO PRN ×3 (03:51→21:26)
[2018-03-02] MEDS: ACETAMINOPHEN 325 MG TABLET (FP) PO PRN ×2 (03:51→09:29)
[2018-03-02] MEDS: LOSARTAN POTASSIUM 50 MG TABLET (FP) PO SCH (09:41)
--- NOTE | 2018-03-02 10:15 | PN ---
Progress Note (short form) - Note Progress Note: NEUROSURGERY CONSULT DICTATED H/o hypertension, hypercholesterolemia, chronic lower back pain c/o increasing right sided lower back pain. The patient describes the pain as tingling in sensation and radiating to his right thigh. He reports that the lower back pain began 2 weeks ago initially in the left side radiating to left buttock. C/o new right sided back pain. + R thigh tingling but no numbness or weakness. PCP prescribed oxycodone but it does not make pain go away. Patient endorses recent travel by bus to [place] 2 weeks ago. Immobilized due to the pain. Denies fevers, chills, urinary/bowel changes. + cough. Also R neck and shoulder pain. PE: Tmax 99.1, now 98.3 HEENT- NC/AT; Neck- supple; Cor- RRR; Lungs- CTA B; Abd- benign, obese, Ext- 1+ B distal LE edema CN- intact; Motor- 5/5 B UE/LE except pain limited; Sensation- intact LT, decreased distal LE vibration; DTR- hyporeflexic B Back - tender R LS junction, + spasm Alk phos 514 LS spine x-rays: L5-S1 DDD/spondylosis Probable lumbar DDD with radiculopathy MRI LS spine Check PSA Neurontin PT/modalities
--- NOTE | 2018-03-02 10:26 | HP ---
DATE OF ADMISSION: 03/01/2018 HISTORY OF PRESENT ILLNESS: This is a 57-year-old male with medical history of hypertension, hypercholesterolemia, back pain. Two weeks ago, patient went to [place] by bus. After coming back from there, he had severe back pain, was seen in the office, I had given him a local steroid injection, and pain continues to get worse. Now, for the last 2 days, he could not get up from the bed. That is why he came to the emergency room. PHYSICAL EXAMINATION: Vital signs: Today, BP 130/80, pulse 72, respirations 20, temperature 99. HEENT: Unremarkable. Neck: Supple. No JVD. Lungs: Clear. Heart: S1, S2 normal. No S3, S4. Abdomen: Soft. Extremities: Leg-raising test is positive on the right side. Neurologic: Grossly normal. IMAGING: Chest x-ray is negative. LABORATORY REPORTS: WBC 9, hemoglobin 11, hematocrit 33, platelets 304. Chemistry: Electrolytes are normal. Alkaline phosphatase is high, 514. IMPRESSION: Back pain, etiology not clear, hypertension, alcoholism. PLAN: Neurologic consultation, Dr. Conklin. May need MRI. Will follow. Nghia [id number]
--- NOTE | 2018-03-02 11:58 | CONS ---
DATE OF CONSULTATION: 03/02/2018 REQUESTING PHYSICIAN: Jaskaran Aguayo MD SENIOR ANALYST DEVELOPER: Carlitos Walker MD, Neurosurgery. CHIEF COMPLAINT: Lower back pain and lumbar radiculopathy. HISTORY OF PRESENT ILLNESS: The patient is a 57-year-old right-handed male with history of hypertension, obesity, and hypercholesterolemia as well as chronic lower back pain, who complains of a 1-1/2 week history of increasing lower back pain. He was taking a bus down to [place], and it was a 12-hour drive. He went on the bus both back and forth. It initially started with left-sided back pain, radiating down to his left buttock. Over the past few days, the pain went down to the right buttock, and he has right thigh tingling. He denies weakness or numbness. He denies bowel or bladder dysfunction. The patient has no recent infection but stated that he had a low-grade temperature of 100 a couple days ago. He denies other infections. He does have a slight cough. There is no bowel or bladder incontinence. PAST MEDICAL HISTORY: Significant for obesity, hypertension, hypercholesterolemia, lower back pain. MEDICATIONS: Include oxycodone, valium, Cozaar, Tylenol, and Lidoderm patch. ALLERGIES: There is no known drug allergy. FAMILY HISTORY: Noncontributory for spinal disease. SOCIAL HISTORY: He does not work. He lives at home. He drinks alcohol socially but does not use recreational drugs. He does not smoke cigarettes. REVIEW OF SYSTEMS: Otherwise negative for other significant constitutional, head and neck, cardiovascular, pulmonary, gastrointestinal, genitourinary, endocrinological, neurological, and psychological problems except for the above. PHYSICAL EXAMINATION: General: He is awake and alert. He is oriented x4. Vital Signs: Temperature is 98.3, blood pressure is 140/86 with pulse rate 85. HEENT: Examination shows the gentleman to be normocephalic, atraumatic, anicteric. Neck: Supple. He has right-sided cervical paraspinal muscle spasm and has tenderness in the right trapezius muscles. Cervical spine flexion is 40 degrees , and extension is 30 degrees. Lateral rotation is 40 degrees on the right and 50 degrees on the left. Coronary: Examination demonstrated regular rhythm. Lungs: Clear bilaterally. Abdomen: Benign but obese. Extremities: Examination shows 1+ edema of distal bilateral lower extremities. Distal pulses are difficult to fully appreciate as a result. Neurologic: His speech is normal. There is no higher cortical function impairment noted. Cranial nerve examination is intact 2-12. Motor examination shows 5/5 strength except limited by pain in his right iliopsoas and right shoulder, where there is only trace weakness at worst. Sensory examination is intact to light touch and pinprick. He does decrease distal lower extremity vibratory sensation. Deep tendon reflexes are hyporeflexic throughout. There is no pathological long track sign. Gait is not tested for safety reasons. Lower Back: Demonstrated right-sided paraspinal muscle spasm as well as right sciatic notch tenderness. He has a mildly positive straight leg raise on the right side at 45 degrees. LABORATORY: Examination shows him to have a white blood cell count of 9.7; hemoglobin is 11. BUN is 15 and creatinine 1.0. LFTs show elevated alkaline phosphatase of 514. Total protein is 8.9. Lumbar spine x-ray done in November of this year demonstrated L5-S1 spondylosis and degenerative disk disease. There is facet hypertrophy at multiple levels. There is no obvious acute fracture or dislocation. IMPRESSION: 1. L5-S1 spondylosis/degenerative disk disease with lumbar radiculopathy, right greater than left. 2. Hypertension. 3. Hypercholesterolemia. 4. Obesity. RECOMMENDATION: The patient presents with 1-1/2 week history of increasing lower back pain. He has had chronic lower back pain, and he reports having seen me at the hospital 8 years ago. He has increasing lower back pain, and he is unable to get out of bed to walk or sit up walk. The pain does sound mechanical in nature. An MRI of the lumbar spine is recommended to rule out any increasing disk herniation. The patient also self-reports a low-grade temperature but has no elevated white blood cell count. He does have elevated alkaline phosphatase, the source of which is not clear to me at this time. He has no history of systemic malignancy. I will recommend checking a PSA. In the meantime, I put him on Neurontin 300 mg p.o. t.i.d. for his lumbar radiculopathy and lower back pain. The above was discussed with the patient at bedside, and he concurs with the current treatment plan. If the pain persists, pain management consultation could be considered. CARLITOS WALKER M.D. [id number] MTDD
[2018-03-02] MEDS: GABAPENTIN 300 MG CAPSULE (FP) PO SCH ×2 (14:15→21:26)
[2018-03-03] MEDS: oxyCODONE HCL 5 MG TABLET PO PRN ×4 (02:52→20:45)
[2018-03-03] MEDS: ACETAMINOPHEN 325 MG TABLET (FP) PO PRN ×4 (02:53→20:46)
[2018-03-03] MEDS: GABAPENTIN 300 MG CAPSULE (FP) PO SCH ×3 (05:30→21:19)
[2018-03-03] MEDS: diazePAM 5 MG TABLET PO SCH ×3 (05:30→21:20)
--- NOTE | 2018-03-03 08:10 | PN ---
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
--- NOTE | 2018-03-03 09:31 | PN ---
Progress Note, Physician Chief Complaint: Feels the same Today has more pain Rt shoulder History of Present Illness: Dr Velasco neurosurgery consult appreciated MRI ordered - Current Medication List Current Medications: Active Medications Acetaminophen (Tylenol -) 325 mg PO Q4H PRN PRN Reason: PAIN SCALE 5-10 Stop: 03/04/18 23:31 Last Admin: 03/03/18 02:53 Dose: 325 mg Diazepam (Valium -) 5 mg PO TID [facility] Last Admin: 03/03/18 05:30 Dose: 5 mg Gabapentin (Neurontin -) 300 mg PO TID [facility] Last Admin: 03/03/18 05:30 Dose: 300 mg Losartan Potassium (Cozaar -) 50 mg PO DAILY [facility] Last Admin: 03/02/18 09:41 Dose: 50 mg Oxycodone HCl (Roxicodone -) 5 mg PO Q4H PRN PRN Reason: PAIN SCALE 5-10 Last Admin: 03/03/18 02:52 Dose: 5 mg - Objective Vital Signs: Vital Signs Temperature 99.2 F 03/03/18 05:59 Pulse Rate 84 03/03/18 05:59 Respiratory Rate 18 03/03/18 05:59 Blood Pressure 140/96 03/03/18 05:59 O2 Sat by Pulse Oximetry (%) 97 03/03/18 01:00 Constitutional: Yes: Mild Distress Eyes: Yes: WNL HENT: Yes: WNL Neck: Yes: WNL Cardiovascular: Yes: WNL Respiratory: Yes: WNL Gastrointestinal: Yes: Normal Bowel Sounds ...Rectal Exam: Yes: Guaiac Trace Genitourinary: Yes: WNL Breast(s): Yes: WNL Musculoskeletal: Yes: Back Pain Edema: No Peripheral Pulses WNL: Yes Integumentary: Yes: WNL Neurological: Yes: Alert Labs: CBC, BMP 03/01/18 17:11 03/01/18 17:11 Assessment/Plan MRI now
[2018-03-03] MEDS: LOSARTAN POTASSIUM 50 MG TABLET (FP) PO SCH (09:46)
[2018-03-04] MEDS: oxyCODONE HCL 5 MG TABLET PO PRN ×4 (00:42→21:31)
[2018-03-04] MEDS: ACETAMINOPHEN 325 MG TABLET (FP) PO PRN ×5 (00:42→21:31)
[2018-03-04] MEDS: GABAPENTIN 300 MG CAPSULE (FP) PO SCH ×3 (05:38→21:30)
[2018-03-04] MEDS: diazePAM 5 MG TABLET PO SCH ×3 (05:38→21:30)
[2018-03-04 07:08] LABS: BASO % 0.6 % (0-2.0); HEMATOCRIT 31.3 % (35.4-49); HEMOGLOBIN 10.4 GM/dL (11.7-16.9); LYMPH % 18.9 % (8-40); MCH 28.5 pg (25.7-33.7); MCHC 33.1 g/dl (32.0-35.9); MEAN CELL VOLUME 86.2 fl (80-96); MEAN PLT VOLUME 9.5 fl (7.5-11.1); MONO % 8.4 % (3.8-10.2); NEUT % 71.1 % (42.8-82.8); PLATELET COUNT 255 K/MM3 (134-434); RBC 3.63 M/mm3 (4.00-5.60); RDW 17.7 % (11.9-15.9)
[2018-03-04 08:38] LABS: ERYTHROCYTE SEDIMENTATION RATE 94 mm/hr (0-20)
--- NOTE | 2018-03-04 09:33 | PN ---
Progress Note (short form) - Note Progress Note: NEUROSURGERY Pain OK when resting Was here 8 years ago with L5-S1 inflammatory disc disease and ? treated prophylactically with abx? PE: Tmax 99.8, VSS HEENT- NC/AT; Neck- supple; Cor- RRR; Lungs- CTA B; Abd- benign, obese, Ext- 1+ B distal LE edema CN- intact; Motor- 5/5 B UE/LE except pain limited; Sensation- intact LT, decreased distal LE vibration; DTR- hyporeflexic B Back - tender R LS junction, + spasm Alk phos 514; PSA 0.7, WBC 10, CRP 7.5, ESR 94 LS spine x-rays: L5-S1 DDD/spondylosis MRI- L5-S1 disc DDD and edema (less than 8 years ago but present); L L4-5 and L3 -4 parafacet edema Lumbar DDD/facet DJD with radiculopathy Blood culture sent Obtain old chart from [id number] Patient seen by Leslie Mcgovern/Armin/Felipe, ID, previously D/w Dr Firoe, consulted Dr Funez Consider CT guided L L3-4, L4-5 parafacet tissue Neurontin PT/modalities
[2018-03-04] MEDS: LOSARTAN POTASSIUM 50 MG TABLET (FP) PO SCH (10:42)
--- NOTE | 2018-03-04 14:28 | PN ---
Progress Note, Physician Chief Complaint: C/O Rt shoulder - Current Medication List Current Medications: Active Medications Acetaminophen (Tylenol -) 325 mg PO Q4H PRN PRN Reason: PAIN SCALE 5-10 Stop: 03/04/18 23:31 Last Admin: 03/04/18 10:40 Dose: 325 mg Diazepam (Valium -) 5 mg PO TID [facility] Last Admin: 03/04/18 05:38 Dose: 5 mg Gabapentin (Neurontin -) 300 mg PO TID [facility] Last Admin: 03/04/18 05:38 Dose: 300 mg Losartan Potassium (Cozaar -) 50 mg PO DAILY [facility] Last Admin: 03/04/18 10:42 Dose: 50 mg Oxycodone HCl (Roxicodone -) 5 mg PO Q4H PRN PRN Reason: PAIN SCALE 5-10 Last Admin: 03/04/18 10:42 Dose: 5 mg - Objective Vital Signs: Vital Signs Temperature 100.1 F H 03/04/18 13:34 Pulse Rate 109 H 03/04/18 13:34 Respiratory Rate 18 03/04/18 13:34 Blood Pressure 135/82 03/04/18 13:34 O2 Sat by Pulse Oximetry (%) 98 03/04/18 00:52 Middle aged 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 Code(s): M54.9 - DORSALGIA, UNSPECIFIED Qualifiers: Back pain location: low back pain Chronicity: unspecified Back pain laterality: right Sciatica presence: unspecified whether sciatica present Qualified Code(s): M54.5 - Low back pain (2) Shoulder pain Assessment/Plan: F /U X ray shoulder pain control Code(s): M25.519 - PAIN IN UNSPECIFIED SHOULDER Qualifiers: Chronicity: acute Laterality: right Qualified Code(s): M25.511 - Pain in right shoulder (3) GERD (gastroesophageal reflux disease) Assessment/Plan: Cont PPI Code(s): K21.9 - GASTRO-ESOPHAGEAL REFLUX DISEASE WITHOUT ESOPHAGITIS (4) HTN (hypertension) Assessment/Plan: Cont all home meds Code(s): I10 - ESSENTIAL (PRIMARY) HYPERTENSION (5) Chronic alcoholism Assessment/Plan: observe closely for DTs , Valium PRN and Thiamine will consider ECHO Cardiogram. Code(s): F10.20 - ALCOHOL DEPENDENCE, UNCOMPLICATED
--- NOTE | 2018-03-04 14:30 | PN ---
Progress Note (short form) - Note Progress Note: ID Consult dictated R/O Vertebral osteomyelitis/ discitis Obtain Blood c/s Observe off antibiotics May need disc space aspiration for c/s
--- NOTE | 2018-03-04 15:09 | CONS ---
DATE OF CONSULTATION: DATE OF DICTATION: 03/04/2018 The patient is a 57-year-old male with a longstanding history of chronic low back pain, evaluated for possible vertebral osteomyelitis. Old chart reviewed. The patient was seen by our group in 2010 at which time he was diagnosed with vertebral osteomyelitis, diskitis, and paraspinal abscess L5-S1. At that time he was treated with a course of IV antibiotic therapy. No culture results are available for review. He now returns with recurrent back pain. Patient states he recently traveled by bus to [place]. He had developed an exacerbation of his chronic low back pain with left low back and buttock pain. He had presented to his primary care physician where a corticosteroid injection was performed. He now returns with right-sided low back pain with radiation to the right buttock. He is hospital day number . An MRI was obtained after neurosurgical evaluation and reveals increased signal intensity of the posterior perifacet soft tissue at the level of L3-L4, L4-L5, concerning for acute facet synovitis, extensive loss of interval disk space height at L5-S1 with degenerative endplate marrow changes, increased signal intensity at disk space to a lesser degree in comparison to MRI obtained in 2011. His course has now been complicated by temperature to 100.7. He denies any shaking chills. Patient denies any recent febrile illness. No reports of recent respiratory tract infection, urinary tract infection, or skin infection. PAST MEDICAL HISTORY: Positive for diskitis, vertebral osteomyelitis, and paraspinal abscess 2010, chronic low back pain, hypertension, gouty arthritis, hyperlipidemia. ALLERGIES: No known allergies. MEDICATIONS: 1. Norvasc. 2. Atenolol. 3. Omeprazole. SOCIAL HISTORY: Patient lives at home. He is not presently working. Nonsmoker, nondrinker. No history of illicit drug use. LABORATORY DATA: White count of 10, hematocrit 31.3, platelet count of 255. ESR 94. C-reactive protein 7.5. BUN 15, creatinine 1.0. Urinalysis 2 white cells. Chest x-ray negative. PHYSICAL EXAMINATION: General: He is supine in bed. He is comfortable at rest, lying flat on his back. Vital Signs: Temperature 100.1, blood pressure 135/82, pulse 109 and regular, respirations 18 per minute. Eyes: Sclerae anicteric. Heart: Sounds S1, S2. No murmur. Lungs: Clear. Abdomen: Obese, soft, nontender. Extremities: Positive for edema. IMPRESSION: Rule out recurrent vertebral osteomyelitis/diskitis L5-S1. Case discussed with . Obtain blood cultures. Observe off antibiotic therapy. May require a disk space aspiration by interventional radiologist for cultures. Analgesics. Thank you for the kind referral. KEYUR WHEATLEY M.D. [id number]
[2018-03-05] MEDS: oxyCODONE HCL 5 MG TABLET PO PRN ×5 (01:48→20:09)
[2018-03-05] MEDS: ACETAMINOPHEN 325 MG TABLET (FP) PO PRN ×5 (01:49→20:10)
[2018-03-05] MEDS: diazePAM 5 MG TABLET PO SCH ×3 (05:52→21:37)
[2018-03-05] MEDS: GABAPENTIN 300 MG CAPSULE (FP) PO SCH ×3 (05:52→21:37)
[2018-03-05 07:52] LABS: BASO % 0.5 % (0-2.0); HEMATOCRIT 30.6 % (35.4-49); HEMOGLOBIN 9.9 GM/dL (11.7-16.9); LYMPH % 15.6 % (8-40); MCH 27.8 pg (25.7-33.7); MCHC 32.4 g/dl (32.0-35.9); MEAN CELL VOLUME 85.7 fl (80-96); MEAN PLT VOLUME 9.9 fl (7.5-11.1); MONO % 9.7 % (3.8-10.2); NEUT % 73.2 % (42.8-82.8); PLATELET COUNT 263 K/MM3 (134-434); RBC 3.57 M/mm3 (4.00-5.60); RDW 17.7 % (11.9-15.9); WHITE BLOOD COUNT 12.3 K/mm3 (4.0-10.0)
[2018-03-05 08:13] LABS: CHLORIDE 101 mmol/L (98-107); SODIUM 133 mmol/L (136-145)
[2018-03-05 08:30] LABS: ANION GAP 7 (8-16); BLOOD UREA NITROGEN 14 mg/dL (7-18); CALCIUM 10.3 mg/dL (8.5-10.1); CO2 25 mmol/L (21-32); GLUCOSE,RANDOM 101 mg/dL (74-106)
--- NOTE | 2018-03-05 08:43 | PN ---
Progress Note (short form) - Note Progress Note: NEUROSURGERY Pain OK when resting Chart from [address] Wang in [address] Andrea in 2010 and knee tapped then Was here 7 years ago with L5-S1 inflammatory disc disease and treated prophylactically with abx x 8 weeks C/o R shoulder pain and decreased ROM PE: Tmax 100.1, now 99.1, VSS HEENT- NC/AT; Neck- supple; Cor- RRR; Lungs- CTA B; Abd- benign, obese, Ext- 1+ B distal LE edema CN- intact; Motor- 5/5 B UE/LE except pain limited; Sensation- intact LT, decreased distal LE vibration; DTR- hyporeflexic B Back - tender R LS junction, + spasm Alk phos 514; PSA 0.7, WBC 12.4, CRP 7.5, ESR 94; Cr 1.0 LS spine x-rays: L5-S1 DDD/spondylosis MRI- L5-S1 disc DDD and edema (less than 8 years ago but present); L L4-5 and L3 -4 parafacet edema with facet arthorsis Lumbar DDD/facet DJD with radiculopathy Blood culture sent Obtain old chart from [id number] Wang, ID, previously and pt recalls prior encounter D/w Dr Fiore, consulted Dr Funez Consult Dr Andrea, r/o R shoulder OA/infection Consider CT guided L L3-4, L4-5 parafacet tissue and pathology to r/o paraspinal abscess, order entered Increase Neurontin PT/modalities
[2018-03-05] MEDS: LOSARTAN POTASSIUM 50 MG TABLET (FP) PO SCH (10:21)
--- NOTE | 2018-03-05 12:05 | PN ---
Progress Note, Physician Chief Complaint: C/O Rt shoulder - Current Medication List Current Medications: Active Medications Acetaminophen (Tylenol -) 325 mg PO Q4H PRN PRN Reason: PAIN SCALE 5-10 Last Admin: 03/05/18 10:00 Dose: 325 mg Diazepam (Valium -) 5 mg PO TID [facility] Last Admin: 03/05/18 05:52 Dose: 5 mg Gabapentin (Neurontin -) 300 mg PO TID [facility] Last Admin: 03/05/18 05:52 Dose: 300 mg Losartan Potassium (Cozaar -) 50 mg PO DAILY [facility] Last Admin: 03/05/18 10:21 Dose: 50 mg Oxycodone HCl (Roxicodone -) 5 mg PO Q4H PRN PRN Reason: PAIN SCALE 5-10 Last Admin: 03/05/18 10:00 Dose: 5 mg - Objective Vital Signs: Vital Signs Temperature 99.3 F 03/05/18 08:34 Pulse Rate 100 H 03/05/18 08:34 Respiratory Rate 20 03/05/18 08:34 Blood Pressure 131/83 03/05/18 08:34 O2 Sat by Pulse Oximetry (%) 98 03/04/18 00:52 Middle aged man not in sytress c/o Rt shoulder and lower back pain HEENT: Mm moist, no anemia, PERRLA, EOMI NECK: No JVD No Bruit CHEST: CTA B/L CVS; S1S2 R no m/g/r ABD; Obese , non tender Bs + EXT: Trace bernadette afeet, Rt shoulder pain and limited restriction [employer] MESH: AOx3 non focal Labs: CBC, BMP 03/05/18 06:39 03/05/18 06:39 Problem List - Problems (1) Back pain Assessment/Plan: H/O Back pain at Lumbar are evaluted by Neurosurgery considering MRI finding fever and elevated TWBC recommended CT guided biopsy to R/O infectious etiology F/U Neurosurgery recommendations,pain control. Code(s): M54.9 - DORSALGIA, UNSPECIFIED Qualifiers: Back pain location: low back pain Chronicity: unspecified Back pain laterality: right Sciatica presence: unspecified whether sciatica present Qualified Code(s): M54.5 - Low back pain (2) Shoulder pain Assessment/Plan: F /U X ray shoulder pain control Code(s): M25.519 - PAIN IN UNSPECIFIED SHOULDER Qualifiers: Chronicity: acute Laterality: right Qualified Code(s): M25.511 - Pain in right shoulder (3) GERD (gastroesophageal reflux disease) Assessment/Plan: Cont PPI Code(s): K21.9 - GASTRO-ESOPHAGEAL REFLUX DISEASE WITHOUT ESOPHAGITIS (4) HTN (hypertension) Assessment/Plan: Cont all home meds Code(s): I10 - ESSENTIAL (PRIMARY) HYPERTENSION (5) Chronic alcoholism Assessment/Plan: observe closely for DTs , Valium PRN and Thiamine will consider ECHO Cardiogram. Code(s): F10.20 - ALCOHOL DEPENDENCE, UNCOMPLICATED
[2018-03-06] MEDS: oxyCODONE HCL 5 MG TABLET PO PRN ×4 (02:17→17:17)
[2018-03-06] MEDS: ACETAMINOPHEN 325 MG TABLET (FP) PO PRN ×4 (02:18→17:18)
[2018-03-06] MEDS: GABAPENTIN 300 MG CAPSULE (FP) PO SCH ×3 (06:24→21:23)
[2018-03-06] MEDS: diazePAM 5 MG TABLET PO SCH ×3 (06:24→21:23)
[2018-03-06 07:29] LABS: BASO % 0.3 % (0-2.0); EOS % 0.5 % (0-4.5); HEMATOCRIT 30.4 % (35.4-49); HEMOGLOBIN 9.9 GM/dL (11.7-16.9); LYMPH % 11.9 % (8-40); MCH 28.2 pg (25.7-33.7); MCHC 32.7 g/dl (32.0-35.9); MEAN CELL VOLUME 86.1 fl (80-96); MEAN PLT VOLUME 9.9 fl (7.5-11.1); MONO % 9.8 % (3.8-10.2); NEUT % 77.5 % (42.8-82.8); PLATELET COUNT 255 K/MM3 (134-434); RBC 3.53 M/mm3 (4.00-5.60); RDW 17.8 % (11.9-15.9); WHITE BLOOD COUNT 14.8 K/mm3 (4.0-10.0)
[2018-03-06 08:23] LABS: ALBUMIN 2.5 g/dl (3.4-5.0); ANION GAP 9 (8-16); BLOOD UREA NITROGEN 18 mg/dL (7-18); CALCIUM 10.5 mg/dL (8.5-10.1); CHLORIDE 102 mmol/L (98-107); CO2 25 mmol/L (21-32); CREATININE 1.1 mg/dL (0.7-1.3); GLUCOSE,RANDOM 93 mg/dL (74-106); POTASSIUM 4.5 mmol/L (3.5-5.1); SGOT/AST 23 U/L (15-37); SGPT/ALT 28 U/L (12-78); SODIUM 136 mmol/L (136-145)
[2018-03-06 08:25] LABS: ALK PHOS 484 U/L (45-117); BILIRUBIN,TOTAL 1.5 mg/dL (0.2-1.0); TOT PROT 7.8 g/dl (6.4-8.2)
--- NOTE | 2018-03-06 09:06 | PN ---
Progress Note, Physician Chief Complaint: Rt shoulder and back pain History of Present Illness: Admitted with back pain Evaluated by neurosurgery,rpt CT no evidence infection Will start indocin - Current Medication List Current Medications: Active Medications Acetaminophen (Tylenol -) 325 mg PO Q4H PRN PRN Reason: PAIN SCALE 5-10 Last Admin: 03/06/18 06:23 Dose: 325 mg Diazepam (Valium -) 5 mg PO TID [facility] Last Admin: 03/06/18 06:24 Dose: 5 mg Gabapentin (Neurontin -) 300 mg PO TID [facility] Last Admin: 03/06/18 06:24 Dose: 300 mg Losartan Potassium (Cozaar -) 50 mg PO DAILY [facility] Last Admin: 03/05/18 10:21 Dose: 50 mg Oxycodone HCl (Roxicodone -) 5 mg PO Q4H PRN PRN Reason: PAIN SCALE 5-10 Last Admin: 03/06/18 06:22 Dose: 5 mg - Objective Vital Signs: Vital Signs Temperature 98.5 F 03/06/18 02:00 Pulse Rate 101 H 03/06/18 02:00 Respiratory Rate 20 03/06/18 02:00 Blood Pressure 137/82 03/06/18 02:00 O2 Sat by Pulse Oximetry (%) 97 03/06/18 02:00 Constitutional: Yes: Mild Distress Eyes: Yes: WNL HENT: Yes: WNL Neck: Yes: WNL Cardiovascular: Yes: WNL Respiratory: Yes: WNL Gastrointestinal: Yes: Normal Bowel Sounds ...Rectal Exam: Yes: Deferred Genitourinary: Yes: WNL Musculoskeletal: Yes: Back Pain Edema: No Peripheral Pulses WNL: Yes Neurological: Yes: Alert Psychiatric: Yes: WNL Labs: CBC, BMP 03/06/18 06:00 03/06/18 06:00 Assessment/Plan Indocin for pain Uric acid ordered
[2018-03-06] MEDS ORDERED: PT OWN MED DRAWER 7, Y5N ONE (09:23)
[2018-03-06 09:26] LABS: INR 1.72 (0.83-1.09); PROTHROMBIN TIME (PATIENT) 19.4 SEC (9.7-13.0)
[2018-03-06 09:51] LABS: URIC ACID 6.8 mg/dL (2.6-7.2)
[2018-03-06] MEDS: LOSARTAN POTASSIUM 50 MG TABLET (FP) PO SCH (09:57)
[2018-03-06] MEDS: PANTOPRAZOLE 20 MG TABLET (FP) PO SCH ×2 (09:58→21:23)
--- NOTE | 2018-03-06 10:14 | PN ---
Progress Note (short form) - Note Progress Note: NEUROSURGERY Persistent pain despite meds PE: Tmax 98.8, VSS HEENT- NC/AT; Neck- supple; Cor- RRR; Lungs- CTA B; Abd- benign, obese, Ext- 1+ B distal LE edema CN- intact; Motor- 5/5 B UE/LE except pain limited; Sensation- intact LT, decreased distal LE vibration; DTR- hyporeflexic B Back - tender R LS junction, + spasm MRI with jordyn- enhancement of L L4-5 facet, more c/w degenerative changes per radiology Lumbar DDD/facet DJD with radiculopathy R > L Blood culture sent Reviewed old chart from [id number] Wang, ID D/w Dr Fiore, consulted Dr Funez Consult Dr Andrea, r/o R shoulder OA/infection Increase Neurontin D/w IR dept PT/modalities Started on Indocin per medical team
[2018-03-06] MEDS: INDOMETHACIN 50 MG CAPSULE PO SCH ×2 (11:20→21:22)
[2018-03-07] MEDS: oxyCODONE HCL 5 MG TABLET PO PRN ×4 (00:39→22:17)
[2018-03-07] MEDS: ACETAMINOPHEN 325 MG TABLET (FP) PO PRN ×4 (00:40→22:15)
[2018-03-07] MEDS: GABAPENTIN 300 MG CAPSULE (FP) PO SCH ×3 (05:46→21:24)
[2018-03-07] MEDS: diazePAM 5 MG TABLET PO SCH ×4 (05:46→21:25)
[2018-03-07] MEDS ORDERED: PT OWN MED DRAWER 7, Y5N ONE ×4 (06:15→22:12)
--- NOTE | 2018-03-07 07:49 | PN ---
Progress Note (short form) - Note Progress Note: NEUROSURGERY Persistent pain despite meds S/p CT guided L L4-5 parafacet tissue cultures PE: AF, VSS HEENT- NC/AT; Neck- supple; Cor- RRR; Lungs- CTA B; Abd- benign, obese, Ext- 1+ B distal LE edema CN- intact; Motor- 5/5 B UE/LE except pain limited; Sensation- intact LT, decreased distal LE vibration; DTR- hyporeflexic B Back - tender R LS junction, + spasm ESR 103, CRP 22.5, WBC 14.8 MRI with jordyn- enhancement of L L4-5 facet, more c/w degenerative changes per radiology Lumbar DDD/facet DJD with radiculopathy R > L Blood culture sent Increased Neurontin ID f/u PT/modalities Started on Indocin per medical team
[2018-03-07] MEDS ORDERED: SODIUM PHOSPHATE/NA BIPHOS 133 ML ENEMA PR ONE (09:23)
--- NOTE | 2018-03-07 09:23 | PN ---
Progress Note, Physician Chief Complaint: Pain Rt shoulder remains the same History of Present Illness: Lumbar spine area aspirated by Dr Conklin Culture pending - Current Medication List Current Medications: Active Medications Acetaminophen (Tylenol -) 325 mg PO Q4H PRN PRN Reason: PAIN SCALE 5-10 Last Admin: 03/07/18 09:01 Dose: 325 mg Diazepam (Valium -) 5 mg PO TID [facility] Last Admin: 03/07/18 05:46 Dose: 5 mg Gabapentin (Neurontin -) 300 mg PO TID [facility] Last Admin: 03/07/18 05:46 Dose: 300 mg Indomethacin (Indocin -) 50 mg PO BID [facility] Last Admin: 03/06/18 21:22 Dose: 50 mg Losartan Potassium (Cozaar -) 50 mg PO DAILY [facility] Last Admin: 03/06/18 09:57 Dose: 50 mg Oxycodone HCl (Roxicodone -) 5 mg PO Q4H PRN PRN Reason: PAIN SCALE 5-10 Last Admin: 03/07/18 09:02 Dose: 5 mg Pantoprazole Sodium (Protonix -) 20 mg PO BID [facility] Last Admin: 03/06/18 21:23 Dose: 20 mg - Objective Vital Signs: Vital Signs Temperature 98.1 F 03/07/18 06:00 Pulse Rate 85 03/07/18 06:00 Respiratory Rate 18 03/07/18 06:00 Blood Pressure 126/69 03/07/18 06:00 O2 Sat by Pulse Oximetry (%) 98 03/07/18 02:00 Constitutional: Yes: Moderate Distress Eyes: Yes: WNL HENT: Yes: WNL Neck: Yes: WNL Cardiovascular: Yes: WNL Respiratory: Yes: WNL Gastrointestinal: Yes: WNL Genitourinary: Yes: WNL Edema: No Neurological: Yes: Alert Labs: CBC, BMP 03/06/18 06:00 03/06/18 06:00 INR, PTT INR 1.72 (0.83-1.09) H 03/06/18 08:40 - ....Imaging MRI: Report Reviewed Assessment/Plan PT for ambulation
[2018-03-07] MEDS ORDERED: DOCUSATE SODIUM 100 MG CAPSULE (FP) PO PRN (09:24)
[2018-03-07] MEDS: LOSARTAN POTASSIUM 50 MG TABLET (FP) PO SCH (10:54)
[2018-03-07] MEDS: PANTOPRAZOLE 20 MG TABLET (FP) PO SCH ×2 (10:54→21:25)
[2018-03-07] MEDS: INDOMETHACIN 50 MG CAPSULE PO SCH ×2 (10:54→21:25)
[2018-03-07] MEDS ORDERED: PIPERACILLIN/TAZOBACTAM 3.375 GM VIAL IVPB ONE ×2 (11:14→17:27)
[2018-03-07] MEDS ORDERED: DEXTROSE 5%-WATER - 50 ML IVPB ONE ×2 (11:14→17:27)
[2018-03-07] MEDS: PIPERACILLIN/TAZOB 3.375 GM 3.375 GM in DEXTROSE 5%-WATER - 50 ML IVPB SCH ×2 (11:20→17:49)
[2018-03-07] MEDS: POLYETHYLENE GLYCOL 3350 119 GM BTL PO SCH (11:36)
[2018-03-07] MEDS: VANCOMYCIN 1 GM PREMIX - 1 GM/200 ML BAG IVPB SCH ×2 (12:13→22:17)
--- NOTE | 2018-03-07 15:43 | PN ---
Progress Note (short form) - Note Progress Note: Pt is a 57 year old Male with recent complaints of increasing low back pain, leg pain, increasing difficulty ambulating (he is not a great historian). He had a CT guided needle aspiration of L4-L5, those results are pending. He has increased right leg pain with attempts at ambulation. He was started on IV antibiotics today. AVSS Labs: WBC increased to 14.8 ESR increased to 103 DAMAGE ADJUSTER increased to 22.5 Blood cultures Pending PE Limited Pt states he is not able to ambulate because of pain and weakness B/L LE appear to be grossly NVI. Good ROM at the ankles, feet, toes Imp Possible spinal osteomyelitis. On IV antibiotics, for less than 24 hours. Possible surgical intervention as per Dr Maurilio Conklin Will follow PRN No orthopedic intervention needed at this time
--- NOTE | 2018-03-07 16:49 | PATH ---
Cytology Non-Gynecological Report Patient Name: ABHINAV MONTAGUE Med. Rec. #: [id number] /Age/Gender: 1960 (Age: 57) / M Account: [id number] Location: [facility]G Taken: 03/06/2018 Received: 03/06/2018 Reported: 03/07/2018 Physicians: Nghia Wood M.D. Thomas T. Lee, M.D. Specimen(s) Received LUMBAR SPINE DISC ASPIRATION Clinical History Lumbar back pain Final Diagnosis LUMBAR SPINE DISC ASPIRATION FOR CYTOLOGY: SATISFACTORY FOR EVALUATION. NEGATIVE FOR MALIGNANT CELLS. SCATTERED INFLAMMATORY CELLS INCLUDING HISTIOCYTES (RARE EPITHELIOID AND ISOLATED MULTINUCLEATED FORMS), FEW NEUTROPHILS, RARE RED BLOOD CELLS, AND RARE LYMPHOCYTES PRESENT. Comment: Suggest clinical/radiologic correlation. Electronically Signed Reanna West M.D. Gross Description Approximately 50 cc of clear fluid received fixed in 50% alcohol. Two cytofunnels and one cellblock prepared.
[2018-03-07] MEDS: DOCUSATE SODIUM 100 MG CAPSULE (FP) PO SCH (21:24)
[2018-03-08] MEDS ORDERED: DEXTROSE 5%-WATER - 50 ML IVPB ONE ×3 (01:29→17:53)
[2018-03-08] MEDS ORDERED: PIPERACILLIN/TAZOBACTAM 3.375 GM VIAL IVPB ONE ×3 (01:29→17:52)
[2018-03-08] MEDS: PIPERACILLIN/TAZOB 3.375 GM 3.375 GM in DEXTROSE 5%-WATER - 50 ML IVPB SCH ×3 (02:39→17:55)
[2018-03-08] MEDS: ACETAMINOPHEN 325 MG TABLET (FP) PO PRN ×2 (04:30→22:24)
[2018-03-08] MEDS: oxyCODONE HCL 5 MG TABLET PO PRN ×2 (04:31→22:24)
[2018-03-08] MEDS: diazePAM 5 MG TABLET PO SCH ×2 (05:32→13:38)
[2018-03-08] MEDS: GABAPENTIN 300 MG CAPSULE (FP) PO SCH ×3 (05:32→22:25)
[2018-03-08 07:25] LABS: BASO % 0.5 % (0-2.0); EOS % 1.1 % (0-4.5); HEMATOCRIT 27.5 % (35.4-49); LYMPH % 11.4 % (8-40); MCHC 32.8 g/dl (32.0-35.9); MEAN CELL VOLUME 85.4 fl (80-96); MEAN PLT VOLUME 9.2 fl (7.5-11.1); MONO % 8.1 % (3.8-10.2); NEUT % 78.9 % (42.8-82.8); PLATELET COUNT 319 K/MM3 (134-434); RBC 3.22 M/mm3 (4.00-5.60); RDW 17.9 % (11.9-15.9)
--- NOTE | 2018-03-08 07:57 | PN ---
Progress Note (short form) - Note Progress Note: NEUROSURGERY Persistent pain despite meds S/p CT guided L L4-5 parafacet tissue cultures by IR PE: Tmax 98.4, AF, VSS HEENT- NC/AT; Neck- supple; Cor- RRR; Lungs- CTA B; Abd- benign, obese, Ext- 1+ B distal LE edema CN- intact; Motor- 5/5 B UE/LE except pain limited B LE 4/5; Sensation- intact LT, decreased distal LE vibration; DTR- hyporeflexic B Back - tender R LS junction, + spasm Parafacet gram stain negative, culture pending Aspirate cytology- inflammatory cells with histiocytes; no malignant cells noted Blood culture negative to date ESR 103, CRP 22.5, WBC 14.8 yesterday, 12 today MRI with jordyn- enhancement of L L4-5 facet, more c/w degenerative changes per radiology Lumbar DDD/facet DJD with radiculopathy R > L Increased Neurontin D/w ID- started on vanco and Zosyn coverage Check aspirate final culture Not a surgical candidate given the clinical picture to date PT/modalities Started on Indocin per medical team
[2018-03-08 08:36] LABS: CHLORIDE 100 mmol/L (98-107); POTASSIUM 4.4 mmol/L (3.5-5.1); SODIUM 132 mmol/L (136-145)
[2018-03-08 09:03] LABS: ALBUMIN 2.1 g/dl (3.4-5.0); ALK PHOS 459 U/L (45-117); ANION GAP 8 (8-16); BILIRUBIN,TOTAL 2.9 mg/dL (0.2-1.0); BLOOD UREA NITROGEN 32 mg/dL (7-18); CALCIUM 10.9 mg/dL (8.5-10.1); CO2 24 mmol/L (21-32); CREATININE 1.3 mg/dL (0.7-1.3); GLUCOSE,RANDOM 96 mg/dL (74-106); SGOT/AST 34 U/L (15-37); SGPT/ALT 28 U/L (12-78); TOT PROT 7.4 g/dl (6.4-8.2)
--- NOTE | 2018-03-08 09:53 | PN ---
Progress Note (short form) - Note Progress Note: Spinal aspirate cultures pending. Dr Maurilio Conklin's note noted. Will follow up after culture results available.
[2018-03-08] MEDS ORDERED: PT OWN MED DRAWER 7, Y5N ONE ×2 (10:05→21:39)
[2018-03-08] MEDS: DOCUSATE SODIUM 100 MG CAPSULE (FP) PO SCH ×2 (10:24→22:25)
[2018-03-08] MEDS: POLYETHYLENE GLYCOL 3350 119 GM BTL PO SCH (10:24)
[2018-03-08] MEDS: PANTOPRAZOLE 20 MG TABLET (FP) PO SCH ×2 (10:24→22:25)
[2018-03-08] MEDS: LOSARTAN POTASSIUM 50 MG TABLET (FP) PO SCH (10:24)
[2018-03-08] MEDS: INDOMETHACIN 50 MG CAPSULE PO SCH (10:24)
[2018-03-08] MEDS: VANCOMYCIN 1 GM PREMIX - 1 GM/200 ML BAG IVPB SCH ×2 (13:38→22:24)
[2018-03-08 13:59] LABS: ERYTHROCYTE SEDIMENTATION RATE 100 mm/hr (0-20)
--- NOTE | 2018-03-08 15:22 | PN ---
Progress Note, Physician Chief Complaint: S/P CT guided L4-5 aspiration cultures are pending - Current Medication List Current Medications: Active Medications Acetaminophen (Tylenol -) 325 mg PO Q4H PRN PRN Reason: PAIN SCALE 5-10 Last Admin: 03/08/18 04:30 Dose: 325 mg Diazepam (Valium -) 5 mg PO TID [facility] Last Admin: 03/08/18 13:38 Dose: Not Given Docusate Sodium (Colace -) 100 mg PO BID [facility] Last Admin: 03/08/18 10:24 Dose: 100 mg Gabapentin (Neurontin -) 300 mg PO TID [facility] Last Admin: 03/08/18 13:38 Dose: 300 mg Vancomycin HCl (Vancomycin 1 Gm Premix -) 1 gm in 200 mls @ 133.333 mls/hr IVPB Q12H [facility]; Protocol Last Admin: 03/08/18 13:38 Dose: 133.333 mls/hr Piperacillin Sod/Tazobactam (Sod 3.375 gm/ Dextrose) 50 mls @ 100 mls/hr IVPB Q8H-IV [facility]; Protocol Last Admin: 03/08/18 10:24 Dose: 100 mls/hr Indomethacin (Indocin -) 50 mg PO BID [facility] Last Admin: 03/08/18 10:24 Dose: 50 mg Losartan Potassium (Cozaar -) 50 mg PO DAILY [facility] Last Admin: 03/08/18 10:24 Dose: Not Given Oxycodone HCl (Roxicodone -) 5 mg PO Q4H PRN PRN Reason: PAIN SCALE 5-10 Last Admin: 03/08/18 04:31 Dose: 5 mg Pantoprazole Sodium (Protonix -) 20 mg PO BID [facility] Last Admin: 03/08/18 10:24 Dose: 20 mg Polyethylene Glycol (Miralax (For Daily Use) -) 17 gm PO DAILY [facility] Last Admin: 03/08/18 10:24 Dose: 17 gm - Objective Vital Signs: Vital Signs Temperature 98.7 F 03/08/18 14:38 Pulse Rate 103 H 03/08/18 14:38 Respiratory Rate 18 03/08/18 14:38 Blood Pressure 106/59 03/08/18 14:38 O2 Sat by Pulse Oximetry (%) 100 03/08/18 10:00 Middle aged man not in sytress c/o Rt shoulder and lower back pain HEENT: Mm moist, no anemia, PERRLA, EOMI NECK: No JVD No Bruit CHEST: CTA B/L CVS; S1S2 R no m/g/r ABD; Obese , non tender Bs + EXT: Trace bernadette afeet, Rt shoulder pain and restriction of movement, lumbar tenderness [employer] INVESTIGATOR: AOx3 non focal Labs: CBC, BMP 03/08/18 06:30 03/08/18 06:30 INR, PTT INR 1.72 (0.83-1.09) H 03/06/18 08:40 Problem List - Problems (1) Back pain Assessment/Plan: H/O Back pain at Lumbar are eluted by Neurosurgery considering MRI finding fever and elevated, CRP, ESR TWBC , underwent CT guided biopsy to R/O infectious etiology on IV abx F/U Neurosurgery recommendations,pain control. Code(s): M54.9 - DORSALGIA, UNSPECIFIED Qualifiers: Back pain location: low back pain Chronicity: unspecified Back pain laterality: right Sciatica presence: unspecified whether sciatica present Qualified Code(s): M54.5 - Low back pain (2) Shoulder pain Assessment/Plan: F /U X ray shoulder pain control Code(s): M25.519 - PAIN IN UNSPECIFIED SHOULDER Qualifiers: Chronicity: acute Laterality: right Qualified Code(s): M25.511 - Pain in right shoulder (3) GERD (gastroesophageal reflux disease) Assessment/Plan: Cont PPI Code(s): K21.9 - GASTRO-ESOPHAGEAL REFLUX DISEASE WITHOUT ESOPHAGITIS (4) HTN (hypertension) Assessment/Plan: Cont all home meds Code(s): I10 - ESSENTIAL (PRIMARY) HYPERTENSION (5) ANGELICA (acute kidney injury) Assessment/Plan: Rising BUN Creat , will hold NSAID IV Hydration re evaluate BMP after Hydration. Code(s): N17.9 - ACUTE KIDNEY FAILURE, UNSPECIFIED (6) Chronic alcoholism Assessment/Plan: observe closely for DTs , Valium PRN and Thiamine will consider ECHO Cardiogram. Code(s): F10.20 - ALCOHOL DEPENDENCE, UNCOMPLICATED
[2018-03-08] MEDS ORDERED: SODIUM CHLORIDE 1,000 ML IV STA (15:28)
[2018-03-08] MEDS ORDERED: LACTULOSE 20 GM/30 ML UDC (FOR ORAL USE ONLY) PO ONE (15:33)
[2018-03-08] MEDS ORDERED: diazePAM 5 MG TABLET PO PRN (15:36)
[2018-03-08] MEDS ORDERED: THIAMINE HCL 100 MG TABLET (FP) PO SCH (15:45)
[2018-03-08] MEDS: SODIUM CHLORIDE 1,000 ML IV SCH (17:52)
[2018-03-08] MEDS ORDERED: METOPROLOL TARTRATE 5 MG/5 ML VIAL ONE (23:30)
[2018-03-08] MEDS ORDERED: METOPROLOL TARTRATE 25 MG TABLET (FP) PO SCH (23:45)
[2018-03-08] MEDS ORDERED: METOPROLOL TARTRATE 5 MG/5 ML VIAL IVPUSH ONE (23:45)
--- NOTE | 2018-03-08 23:58 | HOSP ---
Physical Examination Vital Signs: Vital Signs Temperature 98.2 F 03/08/18 22:55 Pulse Rate 130 H 03/08/18 22:55 Respiratory Rate 20 03/08/18 22:55 Blood Pressure 106/78 03/08/18 22:55 O2 Sat by Pulse Oximetry (%) 100 03/08/18 10:00 Labs: CBC, BMP 03/08/18 06:30 03/08/18 06:30 Hospitalist Encounter Assessment: RR called around 23:20. Pt found on vitals to have heart rate in the 150s. Pt seen and examined and chart reviewed. Pt has no current complaints though has been having constipation on bowel regimen. Denies chest pain, SOB, palpitations ECG revealed A-fib with RVR and rate in 150s still. Exam Gen: A/O no acute distress Heart: Irregularly irregular, Tachycardic, no murmurs noted Lungs: CTA b/l Abdomen: soft nontender A/P New onset A-fib with RVR -Lopressor 5 mg IV given - heart rate decreased to 109 -Stat CBC/CMP/Trop/Coags -Will start on heparin drip -Metoprolol tartrate 25 mg PO BID -Cardiology consult to Cardiology consumer insights intern -Transfer to telemetry, currently in ICU bed until telemetry bed becomes available Visit type - Emergency Visit Emergency Visit: Yes ED Registration Date: 03/08/18 Care time: The patient presented to the Emergency Department on the above date and was hospitalized for further evaluation of their emergent condition. - New Patient This patient is new to me today: Yes Date on this admission: 03/09/18 - Critical Care Critical Care patient: No
[2018-03-09] MEDS ORDERED: HEPARIN NA (PORCINE) 5,000 UNITS/ML 1ML VIAL IVPUSH PRN (00:01)
[2018-03-09] MEDS ORDERED: PIPERACILLIN/TAZOBACTAM 3.375 GM VIAL IVPB ONE (01:16)
[2018-03-09] MEDS ORDERED: DEXTROSE 5%-WATER - 50 ML IVPB ONE (01:16)
[2018-03-09] MEDS: ACETAMINOPHEN 325 MG TABLET (FP) PO PRN ×3 (01:31→21:15)
[2018-03-09] MEDS: oxyCODONE HCL 5 MG TABLET PO PRN ×4 (01:31→21:14)
[2018-03-09] MEDS: SODIUM CHLORIDE 1,000 ML IV SCH (01:36)
[2018-03-09] MEDS: HEPARIN - 25,000 UNIT in SODIUM CHLORIDE 495 ML IV SCH (01:37)
[2018-03-09] MEDS: PIPERACILLIN/TAZOB 3.375 GM 3.375 GM in DEXTROSE 5%-WATER - 50 ML IVPB SCH ×3 (01:38→17:28)
[2018-03-09 02:02] LABS: BASO % 0.4 % (0-2.0); EOS % 0.7 % (0-4.5); HEMATOCRIT 28.6 % (35.4-49); HEMOGLOBIN 9.4 GM/dL (11.7-16.9); MCH 27.9 pg (25.7-33.7); MCHC 32.9 g/dl (32.0-35.9); MEAN CELL VOLUME 84.8 fl (80-96); MEAN PLT VOLUME 9.7 fl (7.5-11.1); MONO % 8.9 % (3.8-10.2); PLATELET COUNT 389 K/MM3 (134-434); RBC 3.37 M/mm3 (4.00-5.60); WHITE BLOOD COUNT 16.3 K/mm3 (4.0-10.0)
[2018-03-09 02:15] LABS: INR 1.59 (0.83-1.09)
[2018-03-09 02:18] LABS: ACTIVATED PTT 33.7 SECONDS (25.2-36.5)
[2018-03-09] MEDS ORDERED: SODIUM CHLORIDE 1,000 ML IV SCH (02:22)
[2018-03-09] MEDS ORDERED: diazePAM 5 MG TABLET PO PRN ×2 (02:22→14:42)
[2018-03-09 02:26] LABS: ALBUMIN 2.1 g/dl (3.4-5.0); ANION GAP 9 (8-16); BILIRUBIN,TOTAL 3.1 mg/dL (0.2-1.0); BLOOD UREA NITROGEN 31 mg/dL (7-18); CALCIUM 10.9 mg/dL (8.5-10.1); CHLORIDE 105 mmol/L (98-107); CO2 24 mmol/L (21-32); CREATININE 1.3 mg/dL (0.7-1.3); GLUCOSE,RANDOM 102 mg/dL (74-106); POTASSIUM 4.4 mmol/L (3.5-5.1); SGOT/AST 27 U/L (15-37); SGPT/ALT 27 U/L (12-78); SODIUM 138 mmol/L (136-145); TOT PROT 7.8 g/dl (6.4-8.2)
[2018-03-09 02:34] LABS: ALK PHOS 464 U/L (45-117)
[2018-03-09] MEDS ORDERED: METOPROLOL TARTRATE 5 MG/5 ML VIAL IVPUSH PRN (04:29)
[2018-03-09] MEDS ORDERED: METOPROLOL TARTRATE 50 MG TABLET (FP) PO ONE (04:30)
[2018-03-09] MEDS ORDERED: METOPROLOL TARTRATE 5 MG/5 ML VIAL IVPUSH ONE (04:30)
[2018-03-09] MEDS: GABAPENTIN 300 MG CAPSULE (FP) PO SCH ×3 (05:57→21:16)
[2018-03-09 06:31] LABS: BASO % 0.2 % (0-2.0); EOS % 0.6 % (0-4.5); HEMATOCRIT 29.1 % (35.4-49); HEMOGLOBIN 9.5 GM/dL (11.7-16.9); LYMPH % 10.8 % (8-40); MCH 27.9 pg (25.7-33.7); MCHC 32.6 g/dl (32.0-35.9); MEAN CELL VOLUME 85.8 fl (80-96); MEAN PLT VOLUME 9.3 fl (7.5-11.1); MONO % 9.6 % (3.8-10.2); NEUT % 78.8 % (42.8-82.8); PLATELET COUNT 359 K/MM3 (134-434); RBC 3.39 M/mm3 (4.00-5.60); RDW 18.1 % (11.9-15.9); WHITE BLOOD COUNT 14.4 K/mm3 (4.0-10.0)
[2018-03-09 07:18] LABS: ANION GAP 10 (8-16); BLOOD UREA NITROGEN 29 mg/dL (7-18); CALCIUM 11.1 mg/dL (8.5-10.1); CHLORIDE 106 mmol/L (98-107); CO2 26 mmol/L (21-32); CREATININE 1.3 mg/dL (0.7-1.3); GLUCOSE,RANDOM 94 mg/dL (74-106); POTASSIUM 4.5 mmol/L (3.5-5.1); SODIUM 142 mmol/L (136-145)
--- NOTE | 2018-03-09 07:58 | PN ---
Progress Note (short form) - Note Progress Note: NEUROSURGERY Transferred to ICU with Afib with RVR B foot/ankle, L knee and, R shoulder pain Back pain R > L PE: Tmax 98.6, AF, [place] 100's, received cardizem HEENT- NC/AT; Neck- supple; Cor- RRR; Lungs- CTA B; Abd- benign, obese, Ext- 1+ B distal LE edema CN- intact; Motor- 5/5 B UE/LE except pain limited B LE 4/5; Sensation- intact LT, decreased distal LE vibration; DTR- hyporeflexic B Back - tender R LS junction, + spasm Parafacet gram stain negative, culture pending Aspirate cytology- inflammatory cells with histiocytes; no malignant cells noted Blood culture negative to date ESR 100 last, CRP 22.4 last; Cr 1.3 yesterday, pending today MRI with jordyn- enhancement of L L4-5 facet, more c/w degenerative changes per radiology Lumbar DDD L5-S1/facet DJD L4-5 (worst level)with radiculopathy R > L On Neurontin D/w ID- started on vanco and Zosyn coverage Check aspirate final culture (pending) Not a surgical candidate given the clinical picture and medical conditions PT/modalities/OOB D/W PMD and ID
[2018-03-09] MEDS: HEPARIN NA (PORCINE) 5,000 UNITS/ML 1ML VIAL IVPUSH PRN ×2 (08:02→15:44)
[2018-03-09] MEDS ORDERED: dilTIAZem HCL 50 MG/10 ML - 10 ML VIAL IVPUSH ONE ×2 (08:21→08:59)
[2018-03-09] MEDS ORDERED: dilTIAZem HCL 125 MG/25 ML - 25 ML VIAL ONE (08:23)
[2018-03-09] MEDS: DOCUSATE SODIUM 100 MG CAPSULE (FP) PO SCH ×2 (09:16→22:00)
[2018-03-09] MEDS: THIAMINE HCL 100 MG TABLET (FP) PO SCH (09:18)
[2018-03-09] MEDS: PANTOPRAZOLE 20 MG TABLET (FP) PO SCH ×2 (09:18→21:15)
[2018-03-09] MEDS ORDERED: PT OWN MED DRAWER 7, Y5N ONE ×3 (09:23→21:12)
--- NOTE | 2018-03-09 09:26 | PN ---
Progress Note, Physician Chief Complaint: C/O palpitation History of Present Illness: Here in ICU because of new onset of Afib - Current Medication List Current Medications: Active Medications Acetaminophen (Tylenol -) 325 mg PO Q4H PRN PRN Reason: PAIN SCALE 5-10 Last Admin: 03/09/18 05:30 Dose: 325 mg Diazepam (Valium -) 5 mg PO Q8H PRN PRN Reason: AGITATION Diltiazem HCl (Cardizem Injection -) 10 mg IVPUSH ONCE ONE Stop: 03/09/18 09:00 Last Admin: 03/09/18 09:00 Dose: 10 mg Docusate Sodium (Colace -) 100 mg PO BID [facility] Gabapentin (Neurontin -) 300 mg PO TID [facility] Last Admin: 03/09/18 05:57 Dose: 300 mg Heparin Sodium (Porcine) (Heparin -) 1,000 unit IVPUSH PRN PRN PRN Reason: Heparin Heparin Sodium (Porcine) (Heparin -) 5,000 unit IVPUSH PRN PRN PRN Reason: Heparin Last Admin: 03/09/18 08:02 Dose: 5,000 unit Heparin Sodium (Porcine) 25, (000 unit/ Sodium Chloride) 500 mls @ 20 mls/hr IV TITR [facility]; Protocol Last Titration: 03/09/18 07:56 Dose: 1,150 unit/hr, 23 mls/hr Sodium Chloride (Normal Saline -) 1,000 mls @ 100 mls/hr IV ASDIR [facility] Last Admin: 03/09/18 03:36 Dose: Not Given Vancomycin HCl (Vancomycin 1 Gm Premix -) 1 gm in 200 mls @ 133.333 mls/hr IVPB Q12H [facility]; Protocol Piperacillin Sod/Tazobactam (Sod 3.375 gm/ Dextrose) 50 mls @ 100 mls/hr IVPB Q8H-IV [facility]; Protocol Losartan Potassium (Cozaar -) 50 mg PO DAILY [facility] Metoprolol Tartrate (Lopressor -) 25 mg PO BID [facility] Metoprolol Tartrate (Lopressor Injection -) 5 mg IVPUSH Q6H PRN PRN Reason: HR >120 Oxycodone HCl (Roxicodone -) 5 mg PO Q4H PRN PRN Reason: PAIN SCALE 5-10 Last Admin: 03/09/18 05:30 Dose: 5 mg Pantoprazole Sodium (Protonix -) 20 mg PO BID [facility] Polyethylene Glycol (Miralax (For Daily Use) -) 17 gm PO DAILY [facility] Thiamine HCl (Vitamin B1 -) 100 mg PO DAILY [facility] - Objective Vital Signs: Vital Signs Temperature 98.3 F 03/09/18 06:00 Pulse Rate 115 H 03/09/18 06:00 Respiratory Rate 22 03/09/18 06:00 Blood Pressure 126/57 03/09/18 06:00 O2 Sat by Pulse Oximetry (%) 97 03/08/18 21:00 Constitutional: Yes: Mild Distress Eyes: Yes: WNL HENT: Yes: WNL Neck: Yes: WNL Cardiovascular: Yes: WNL, Pulse Irregular Respiratory: Yes: WNL Gastrointestinal: Yes: WNL Musculoskeletal: Yes: Back Pain, Muscle Weakness Peripheral Pulses WNL: Yes Neurological: Yes: Alert Psychiatric: Yes: Alert Labs: CBC, BMP 03/09/18 05:30 03/09/18 05:30 INR, PTT INR 1.59 (0.83-1.09) H 03/09/18 01:10 Assessment/Plan Case discussed with Dr Armin Crow and ICU resident
[2018-03-09] MEDS ORDERED: LOSARTAN POTASSIUM 50 MG TABLET (FP) PO SCH (10:00)
[2018-03-09] MEDS ORDERED: METOPROLOL TARTRATE 25 MG TABLET (FP) PO SCH (10:00)
--- NOTE | 2018-03-09 10:05 | EKG ---
Test Reason : Blood Pressure : / mmHG Vent. Rate : 100 BPM Atrial Rate : 100 BPM P-R Int : 158 ms QRS Dur : 082 ms QT Int : 326 ms P-R-T Axes : 053 016 074 degrees QTc Int : 420 ms NORMAL SINUS RHYTHM NONSPECIFIC T WAVE ABNORMALITY ABNORMAL ECG WHEN COMPARED WITH ECG OF 12-NOV-2017 21:18, NO SIGNIFICANT CHANGE WAS FOUND Confirmed by SADE PÉREZ MD ([id number]) on 03/09/2018 10:04:33 AM Referred By: Confirmed By:SADE PÉREZ MD
[2018-03-09] MEDS: POLYETHYLENE GLYCOL 3350 119 GM BTL PO SCH (11:31)
--- NOTE | 2018-03-09 11:46 | PN ---
Teaching Attending Note Name of Resident: Criselda Mathews ATTENDING PHYSICIAN STATEMENT I saw and evaluated the patient. I reviewed the resident's note and discussed the case with the resident. I agree with the resident's findings and plan as documented. SUBJECTIVE: Pt seen and examined in the ICU. Briefly, 57yo male with h/o HTN, hypercholesterolemia, chronic back pain who was admitted with lower back pain evaluated for vetebral osteomyelitis s/p aspiration of fluid who was transferred down to the ICU for new onset rapid atrial fibrillation. Denies palpitations, shortness of breath or chest pain. Has since converted to sinus rhythm. OBJECTIVE: Vital Signs Period Temp Pulse Resp BP Sys/Beasley Pulse Ox Last 24 Hr 98.0 F-98.7 F 97-152 18-22 106-126/57-78 97 Intake & Output 03/06/18 03/07/18 03/08/18 03/09/18 23:59 23:59 23:59 23:59 Intake Total 9156 928 6267 920 Output Total 600 600 400 Balance 178 696 5802 520 Weight 117.934 kg 119.323 kg Gen: NAD at rest Heart: irregular prior to conversion Lung: decreased breath sounds at the bases Abd: soft, nontender Ext: no edema CBC, BMP 03/09/18 05:30 03/09/18 05:30 Active Medications Acetaminophen (Tylenol -) 325 mg PO Q4H PRN PRN Reason: PAIN SCALE 5-10 Last Admin: 03/09/18 05:30 Dose: 325 mg Diazepam (Valium -) 5 mg PO Q8H PRN PRN Reason: AGITATION Docusate Sodium (Colace -) 100 mg PO BID [facility] Last Admin: 03/09/18 09:16 Dose: 100 mg Gabapentin (Neurontin -) 300 mg PO TID [facility] Last Admin: 03/09/18 05:57 Dose: 300 mg Heparin Sodium (Porcine) (Heparin -) 1,000 unit IVPUSH PRN PRN PRN Reason: Heparin Heparin Sodium (Porcine) (Heparin -) 5,000 unit IVPUSH PRN PRN PRN Reason: Heparin Last Admin: 03/09/18 08:02 Dose: 5,000 unit Heparin Sodium (Porcine) 25, (000 unit/ Sodium Chloride) 500 mls @ 20 mls/hr IV TITR [facility]; Protocol Last Titration: 03/09/18 07:56 Dose: 1,150 unit/hr, 23 mls/hr Sodium Chloride (Normal Saline -) 1,000 mls @ 100 mls/hr IV ASDIR [facility] Last Admin: 03/09/18 03:36 Dose: Not Given Vancomycin HCl (Vancomycin 1 Gm Premix -) 1 gm in 200 mls @ 133.333 mls/hr IVPB Q12H [facility]; Protocol Piperacillin Sod/Tazobactam (Sod 3.375 gm/ Dextrose) 50 mls @ 100 mls/hr IVPB Q8H-IV [facility]; Protocol Last Admin: 03/09/18 11:29 Dose: 100 mls/hr Metoprolol Succinate (Toprol Xl -) 50 mg PO BID [facility] Metoprolol Tartrate (Lopressor Injection -) 5 mg IVPUSH Q6H PRN PRN Reason: HR >120 Oxycodone HCl (Roxicodone -) 5 mg PO Q4H PRN PRN Reason: PAIN SCALE 5-10 Last Admin: 03/09/18 05:30 Dose: 5 mg Pantoprazole Sodium (Protonix -) 20 mg PO BID [facility] Last Admin: 03/09/18 09:18 Dose: 20 mg Polyethylene Glycol (Miralax (For Daily Use) -) 17 gm PO DAILY [facility] Last Admin: 03/09/18 11:31 Dose: 17 gm Thiamine HCl (Vitamin B1 -) 100 mg PO DAILY [facility] Last Admin: 03/09/18 09:18 Dose: 100 mg ASSESSMENT AND PLAN: Atrial Fibrillation with RVR now in sinus Likely Obstructive Sleep Apnea r/o Vertebral Osteomyelitis HTN Hypercholesterolemia Alcohol Dependence - continue metoprolol - anticoagulation per cardiology - continue antibiotics - f/u cultures - pain control - can monitor on telemetry
--- NOTE | 2018-03-09 12:17 | CON.CARD ---
Cardiology Consult (text) - Consultation Consultation Note: cc: back pain hpi: 57 m htn here with low back pain. No hx hrt dz. No cp, sob, palps, dizzy , loc, pnd, orthopnea, le edema. Being evaluated/treated for lumbar radiculopathy vs infection. Overnight had afib with rvr, no sxs. pmh: per hpi psh: nc social: no tob fam: no premature cad, scd ros: per hpi; no nvd, fever, wt loss, cough, gib hematuria dysuria meds: Home Medications Medication Instructions Recorded Amlodipine Besylate [Norvasc -] 10 mg PO DAILY 11/10/14 Atenolol [Tenormin -] 50 mg PO DAILY 11/10/14 Omeprazole 20 mg PO BID #10 tablet. 11/13/17 pe: Vital Signs Period Temp Pulse Resp BP Sys/Beasley Pulse Ox Last 24 Hr 98.0 F-98.7 F 79-152 18-23 106-134/56-78 97-97 nad no jvd irreg s1s2 no mrg cta bl nl eff aaox3 no le e/c/c abd nt nd pos bs no jaunidce diaphoresis pos dp pt Laboratory Last Values WBC 14.4 K/mm3 (4.0-10.0) H 03/09/18 05:30 RBC 3.39 M/mm3 (4.00-5.60) L 03/09/18 05:30 Hgb 9.5 GM/dL (11.7-16.9) L 03/09/18 05:30 Hct 29.1 % (35.4-49) L 03/09/18 05:30 MCV 85.8 fl (80-96) 03/09/18 05:30 MCH 27.9 pg (25.7-33.7) 03/09/18 05:30 MCHC 32.6 g/dl (32.0-35.9) 03/09/18 05:30 RDW 18.1 % (11.9-15.9) H 03/09/18 05:30 Plt Count 359 K/MM3 (134-434) 03/09/18 05:30 MPV 9.3 fl (7.5-11.1) 03/09/18 05:30 Absolute Neuts (auto) 11.3 # 03/09/18 05:30 Neutrophils % 78.8 % (42.8-82.8) 03/09/18 05:30 Lymphocytes % 10.8 % (8-40) 03/09/18 05:30 Monocytes % 9.6 % (3.8-10.2) 03/09/18 05:30 Eosinophils % 0.6 % (0-4.5) 03/09/18 05:30 Basophils % 0.2 % (0-2.0) 03/09/18 05:30 Nucleated RBC % 0 % (0-0) 03/09/18 05:30 ESR 100 mm/hr (0-20) H 03/08/18 06:30 PT with INR 18.00 SEC (9.7-13.0) H 03/09/18 01:10 INR 1.59 (0.83-1.09) H 03/09/18 01:10 PTT (Actin FS) 32.9 SECONDS (25.2-36.5) 03/09/18 05:30 Sodium 142 mmol/L (136-145) 03/09/18 05:30 Potassium 4.5 mmol/L (3.5-5.1) 03/09/18 05:30 Chloride 106 mmol/L (98-107) 03/09/18 05:30 Carbon Dioxide 26 mmol/L (21-32) 03/09/18 05:30 Anion Gap 10 (8-16) 03/09/18 05:30 BUN 29 mg/dL (7-18) H 03/09/18 05:30 Creatinine 1.3 mg/dL (0.7-1.3) 03/09/18 05:30 Creat Clearance w eGFR 56.50 (>60) 03/09/18 05:30 Random Glucose 94 mg/dL (74-106) 03/09/18 05:30 Uric Acid 6.8 mg/dL (2.6-7.2) 03/06/18 06:00 Calcium 11.1 mg/dL (8.5-10.1) H 03/09/18 05:30 Total Bilirubin 3.1 mg/dL (0.2-1.0) H 03/09/18 01:10 AST 27 U/L (15-37) D 03/09/18 01:10 ALT 27 U/L (12-78) 03/09/18 01:10 Alkaline Phosphatase 464 U/L (45-117) H 03/09/18 01:10 Creatine Kinase 48 IU/L (39-308) 03/09/18 01:10 Troponin I < 0.02 ng/ml (0.00-0.05) 03/09/18 01:10 C-Reactive Protein 22.5 MG/DL (0.00-0.3) H 03/06/18 06:00 Total Protein 7.8 g/dl (6.4-8.2) 03/09/18 01:10 Albumin 2.1 g/dl (3.4-5.0) L 03/09/18 01:10 Lipase 72 U/L (73-393) L 03/01/18 17:11 Prostate Specific Ag 0.70 ng/ml (0.0-4.0) 03/03/18 06:00 TSH 0.69 uIU/ml (0.358-3.74) D 03/09/18 01:10 Urine Color Jenifer 03/01/18 17:11 Urine Appearance Clear 03/01/18 17:11 Urine pH 5.0 (5.0-8.0) 03/01/18 17:11 Ur Specific [place] 1.024 (1.001-1.035) 03/01/18 17:11 Urine Protein 1+ (NEGATIVE) H D 03/01/18 17:11 Urine Glucose (UA) Negative (NEGATIVE) 03/01/18 17:11 Urine Ketones Negative (NEGATIVE) 03/01/18 17:11 Urine Blood Negative (NEGATIVE) 03/01/18 17:11 Urine Nitrite Negative (NEGATIVE) 03/01/18 17:11 Urine Bilirubin Negative (<2.0 mg/dL) 03/01/18 17:11 Urine Urobilinogen 4.0 e.u/dl mg/dL (0.2-1.0) 03/01/18 17:11 Ur Leukocyte Esterase Negative (NEGATIVE) 03/01/18 17:11 Urine WBC (Auto) 2 /hpf (3-5) 03/01/18 17:11 Urine RBC (Auto) 1 /hpf (0-3) 03/01/18 17:11 Urine Mucus Few 03/01/18 17:11 tele: afib, rvr at times ecg: sr, nl intervals, no ishcemic changes cxr: no chf a/p: 57 m htn here with low back pain. afib: -new onset afib with rvr -will change to toprol 50 bid, monitor tele -check echo -tsh wnl -chadsvasc warrants AC, cont hep gtt for now, start noac when ready for dc htn: -bp on lower side now that on rate control meds so will dc cozaar to allow more bp room for bb back pain: -plans per NS and ID
[2018-03-09] MEDS: VANCOMYCIN 1 GM PREMIX - 1 GM/200 ML BAG IVPB SCH ×2 (12:46→22:00)
--- NOTE | 2018-03-09 13:38 | ECHO ---
Name: ABHINAV MONTAGUE Exam:Adult Echocardiogram Study Date: 03/09/2018 08:30 AM Age: 57 yrs Reason For Study: NEW ONSET A-FIB Height: 71 in Weight: 260 lb BSA: 2.4 m2 MMode/2D Measurements & Calculations IVSd: 1.5 cm Ao root diam: 3.4 cm LVIDd: 4.6 cm LA dimension: 4.0 cm LVIDs: 2.5 cm LVPWd: 1.3 cm EDV(Teich): 95.9 ml ESV(Teich): 21.4 ml Doppler Measurements & Calculations MV E max ash: 91.2 cm/sec Med Peak E' Ash: 10.8 cm/sec MV dec time: 0.32 sec Med E/e': 8.5 Lat Peak E' Ash: 12.2 cm/sec Lat E/e': 7.5 Procedure A complete two-dimensional transthoracic echocardiogram was performed (2D, M-mode, Doppler and color flow Doppler). Left Ventricle The left ventricular size, thickness and function are normal. Ejection Fraction = 60-65%. The left ve ntricular wall motion is normal. Right Ventricle The right ventricle is not well visualized. Atria Normal left and right atrial size and function. Mitral Valve There is no mitral regurgitation noted. Tricuspid Valve There is trace tricuspid regurgitation. There was insufficient TR detected to calculate RV systolic p ressure. Aortic Valve No hemodynamically significant valvular aortic stenosis. No aortic regurgitation is present. Pulmonic Valve There is no pulmonic valvular regurgitation. Great Vessels The aortic root is normal size. Pericardium/Pleura There is no pericardial effusion. Interpretation Summary The left ventricular size, thickness and function are normal. The right ventricle is not well visualized. There is trace tricuspid regurgitation. MD Andrew Lyon 03/09/2018 01:38 PM
--- NOTE | 2018-03-09 14:29 | CONSULT ---
Consultation: REQUESTING PROVIDER: CONSULT REQUEST: ICU resident HISTORY OF PRESENT ILLNESS: 57 y/o male with PMH of HTN, HLD, chronic back pain, presented to the ER on 03/01 with left gluteus pain radiating down the thigh. patient has had a history with back pain in the past, questionable for osteomyelitis vs. degenerative disease and sees neurologist and infectious disease doctors as an outpatient. patient is currently in the ICU for monitoring as he was a rapid response overnight after going into new onset AFIB with RVR, with heart rate in the 150's. Patient was given 50 of lopressor, multiple pushes of diltizaem and is started on a heparin drip. patient however is asymptomatic, and denies CP/SOB/N/N fevers or chills, his only complaint is his chronic low back pain. REVIEW OF SYSTEMS: CONSTITUTIONAL: Absent: fever, chills, diaphoresis, generalized weakness, malaise, loss of appetite, weight change HEENT: Absent: rhinorrhea, nasal congestion, throat pain, throat swelling, difficulty swallowing, mouth swelling, ear pain, eye pain, visual changes CARDIOVASCULAR: Absent: chest pain, syncope, palpitations, irregular heart rate, lightheadedness , peripheral edema RESPIRATORY: Absent: cough, shortness of breath, dyspnea with exertion, orthopnea, wheezing, stridor, hemoptysis GASTROINTESTINAL: Absent: abdominal pain, abdominal distension, nausea, vomiting, diarrhea, constipation, melena, hematochezia GENITOURINARY: Absent: dysuria, frequency, urgency, hesitancy, hematuria, flank pain, genital pain MUSCULOSKELETAL: +back, thigh and leg pain SKIN: Absent: rash, itching, pallor HEMATOLOGIC/IMMUNOLOGIC: Absent: easy bleeding, easy bruising, lymphadenopathy, frequent infections ENDOCRINE: Absent: unexplained weight gain, unexplained weight loss, heat intolerance, cold intolerance NEUROLOGIC: Absent: headache, focal weakness or paresthesias, dizziness, unsteady gait, seizure, mental status changes, bladder or bowel incontinence PSYCHIATRIC: Absent: anxiety, depression, suicidal or homicidal ideation, hallucinations. PHYSICAL EXAMINATION Vital Signs - 24 hr 03/08/18 03/08/18 03/08/18 14:38 19:27 21:00 Temperature 98.7 F 98.0 F Pulse Rate 103 H 97 H Respiratory 18 20 Rate Blood Pressure 106/59 106/70 O2 Sat by Pulse 97 Oximetry (%) 03/08/18 03/09/18 03/09/18 22:55 00:02 01:06 Temperature 98.2 F 98.5 F Pulse Rate 130 H 140 H 120 H Respiratory 20 20 Rate Blood Pressure 106/78 106/78 112/64 O2 Sat by Pulse Oximetry (%) 03/09/18 03/09/18 03/09/18 02:12 04:20 04:33 Temperature 98.6 F Pulse Rate 125 H 131 H 152 H Respiratory 22 19 Rate Blood Pressure 106/64 115/67 115/67 O2 Sat by Pulse Oximetry (%) 03/09/18 03/09/18 03/09/18 06:00 08:00 09:00 Temperature 98.3 F Pulse Rate 115 H 145 H Respiratory 22 23 22 Rate Blood Pressure 126/57 134/64 O2 Sat by Pulse 97 Oximetry (%) 03/09/18 03/09/18 10:00 12:00 Temperature 98.4 F Pulse Rate 120 H 79 Respiratory 21 19 Rate Blood Pressure 125/69 109/56 O2 Sat by Pulse Oximetry (%) GENERAL: Awake, alert, and fully oriented, in no acute distress. NECK: no JVD present LUNGS: Breath sounds equal, clear to auscultation bilaterally. No wheezes, and no crackles. No accessory muscle use. HEART: Tachycardic, normal S1 and S2 without murmur, rub or gallop. ABDOMEN: Soft, nontender, not distended, normoactive bowel sounds, no guarding, no rebound, no masses. No hepatomegaly or splenomegaly. MUSCULOSKELETAL: tenderness to palpation in lower back and legs UPPER EXTREMITIES: 2+ pulses, warm, well-perfused. No cyanosis. No clubbing. Cap refill <2 seconds. No peripheral edema. LOWER EXTREMITIES: 2+ pulses, warm, well-perfused. No calf tenderness. No peripheral edema. Laboratory Results - last 24 hr 03/09/18 03/09/18 03/09/18 01:10 01:10 01:10 WBC 16.3 H RBC 3.37 L Hgb 9.4 L Hct 28.6 L MCV 84.8 MCH 27.9 MCHC 32.9 RDW 18.0 H Plt Count 389 D MPV 9.7 Absolute Neuts (auto) 13.2 Neutrophils % 81.0 Lymphocytes % 9.0 D Monocytes % 8.9 Eosinophils % 0.7 Basophils % 0.4 Nucleated RBC % 0 PT with INR 18.00 H INR 1.59 H PTT (Actin FS) 33.7 Sodium 138 Potassium 4.4 Chloride 105 Carbon Dioxide 24 Anion Gap 9 BUN 31 H Creatinine 1.3 Creat Clearance w eGFR 56.50 Random Glucose 102 Calcium 10.9 H Total Bilirubin 3.1 H AST 27 D ALT 27 Alkaline Phosphatase 464 H Creatine Kinase Troponin I Total Protein 7.8 Albumin 2.1 L TSH 0.69 D 03/09/18 03/09/18 03/09/18 01:10 05:30 05:30 WBC 14.4 H RBC 3.39 L Hgb 9.5 L Hct 29.1 L MCV 85.8 MCH 27.9 MCHC 32.6 RDW 18.1 H Plt Count 359 MPV 9.3 Absolute Neuts (auto) 11.3 Neutrophils % 78.8 Lymphocytes % 10.8 Monocytes % 9.6 Eosinophils % 0.6 Basophils % 0.2 Nucleated RBC % 0 PT with INR INR PTT (Actin FS) Sodium 142 Potassium 4.5 Chloride 106 Carbon Dioxide 26 Anion Gap 10 BUN 29 H Creatinine 1.3 Creat Clearance w eGFR 56.50 Random Glucose 94 Calcium 11.1 H Total Bilirubin AST ALT Alkaline Phosphatase Creatine Kinase 48 Troponin I < 0.02 Total Protein Albumin TSH 03/09/18 03/09/18 05:30 13:50 WBC RBC Hgb Hct MCV MCH MCHC RDW Plt Count MPV Absolute Neuts (auto) Neutrophils % Lymphocytes % Monocytes % Eosinophils % Basophils % Nucleated RBC % PT with INR INR PTT (Actin FS) 32.9 34.7 Sodium Potassium Chloride Carbon Dioxide Anion Gap BUN Creatinine Creat Clearance w eGFR Random Glucose Calcium Total Bilirubin AST ALT Alkaline Phosphatase Creatine Kinase Troponin I Total Protein Albumin TSH Active Medications Generic Name Dose Route Start Last Admin Trade Name Freq PRN Reason Stop Dose Admin Acetaminophen 325 mg 03/09/18 02:22 03/09/18 05:30 Tylenol - PO 325 mg Q4H PRN Administration PAIN SCALE 5-10 Diazepam 5 mg 03/09/18 02:22 Valium - PO Q8H PRN AGITATION Docusate Sodium 100 mg 03/09/18 10:00 03/09/18 09:16 Colace - PO 100 mg BID ELLYN Administration Gabapentin 300 mg 03/09/18 06:00 03/09/18 13:21 Neurontin - PO 300 mg TID ELLYN Administration Heparin Sodium (Porcine) 1,000 unit 03/09/18 00:01 Heparin - IVPUSH PRN PRN Heparin Heparin Sodium (Porcine) 5,000 unit 03/09/18 00:01 03/09/18 08:02 Heparin - IVPUSH 5,000 unit PRN PRN Administration Heparin Heparin Sodium (Porcine) 25, 500 mls @ 20 mls/hr 03/09/18 00:15 03/09/18 07: 56 000 unit/ Sodium Chloride IV 1,150 unit/hr TITR ELLYN 23 mls/hr Titration Protocol 1,000 UNIT/HR Sodium Chloride 1,000 mls @ 100 mls/hr 03/09/18 02:22 03/09/18 03:36 Normal Saline - IV Not Given ASDIR ELLYN Vancomycin HCl 1 gm in 200 mls @ 133.333 mls/hr 03/09/18 11:00 03/09/18 12:46 Vancomycin 1 Gm Premix - IVPB 133.333 mls/hr Q12H ELLYN Administration Protocol Piperacillin Sod/Tazobactam 50 mls @ 100 mls/hr 03/09/18 10:00 03/09/18 11:29 Sod 3.375 gm/ Dextrose IVPB 100 mls/hr Q8H-IV ELLYN Administration Protocol Metoprolol Succinate 50 mg 03/09/18 22:00 Toprol Xl - PO BID [facility] Metoprolol Tartrate 5 mg 03/09/18 04:29 Lopressor Injection - IVPUSH Q6H PRN HR >120 Oxycodone HCl 5 mg 03/09/18 02:22 03/09/18 13:20 Roxicodone - PO 5 mg Q4H PRN Administration PAIN SCALE 5-10 Pantoprazole Sodium 20 mg 03/09/18 10:00 03/09/18 09:18 Protonix - PO 20 mg BID ELLYN Administration Polyethylene Glycol 17 gm 03/09/18 10:00 03/09/18 11:31 Miralax (For Daily Use) - PO 17 gm DAILY ELLYN Administration Thiamine HCl 100 mg 03/09/18 10:00 03/09/18 09:18 Vitamin B1 - PO 100 mg DAILY ELLYN Administration ASSESSMENT/PLAN: 57 y/o male with PMH of HTN, HLD, gout, chronic low back pain, presented to the ER with low back pain being treated for possible osteomyelitis, is currently being monitored in the ICU due to new onset AFIB with RVR. Patient is currently asymptomatic and has converted back to normal sinus rhythm. Cardio: new onset AFIB with RVR -patient converted back to sinus rhythm -follow up echo -continue with Toprol XL 50 BID -currently on heparin drip for anticoagulation -monitor HR -follow up LE dopplers to rule out possible DVT MSK: chronic back pain; osetomyelitis vs. degenerative disc disease? -aspirate fluid did not grow anything thus far -follow up cultures -antibiotics as per ID -pain medication PRN GI Prophylaxis: protonix DVT prophyalxis: heparin drip F/E/N: ND @100mls/hr replete electrolytes when necessary sodium restricted diet Dispo: can transfer to tele Problem List - Problems (1) New onset a-fib Code(s): I48.91 - UNSPECIFIED ATRIAL FIBRILLATION (2) Shoulder pain Code(s): M25.519 - PAIN IN UNSPECIFIED SHOULDER Qualifiers: Chronicity: acute Laterality: right Qualified Code(s): M25.511 - Pain in right shoulder (3) Chronic alcoholism Code(s): F10.20 - ALCOHOL DEPENDENCE, UNCOMPLICATED Visit type - Emergency Visit Emergency Visit: Yes ED Registration Date: 03/01/18 Care time: The patient presented to the Emergency Department on the above date and was hospitalized for further evaluation of their emergent condition. - New Patient This patient is new to me today: Yes Date on this admission: 03/09/18 - Critical Care Critical Care patient: Yes Total Critical Care Time (in minutes): 35 Critical Care Statement: The care of this patient involved high complexity decision making to prevent further life threatening deterioration of the patient 's condition and/or to evaluate & treat vital organ system(s) failure or risk of failure.
--- NOTE | 2018-03-09 22:29 | PN ---
Progress Note, Physician History of Present Illness: Supine in bed No acute distress Afebrile Aspirate cultures no growth to date - Current Medication List Current Medications: Active Medications Acetaminophen (Tylenol -) 325 mg PO Q4H PRN PRN Reason: PAIN SCALE 5-10 Last Admin: 03/09/18 21:15 Dose: 325 mg Diazepam (Valium -) 10 mg PO Q8H PRN PRN Reason: AGITATION Docusate Sodium (Colace -) 100 mg PO BID [facility] Last Admin: 03/09/18 09:16 Dose: 100 mg Gabapentin (Neurontin -) 300 mg PO TID [facility] Last Admin: 03/09/18 21:16 Dose: 300 mg Heparin Sodium (Porcine) (Heparin -) 1,000 unit IVPUSH PRN PRN PRN Reason: Heparin Heparin Sodium (Porcine) (Heparin -) 5,000 unit IVPUSH PRN PRN PRN Reason: Heparin Last Admin: 03/09/18 15:44 Dose: 5,000 unit Heparin Sodium (Porcine) 25, (000 unit/ Sodium Chloride) 500 mls @ 20 mls/hr IV TITR ELLYN; Protocol Last Titration: 03/09/18 19:30 Dose: 1,300 unit/hr, 26 mls/hr Sodium Chloride (Normal Saline -) 1,000 mls @ 100 mls/hr IV ASDIR ELLYN Last Admin: 03/09/18 03:36 Dose: Not Given Vancomycin HCl (Vancomycin 1 Gm Premix -) 1 gm in 200 mls @ 133.333 mls/hr IVPB Q12H ELLYN; Protocol Last Admin: 03/09/18 12:46 Dose: 133.333 mls/hr Piperacillin Sod/Tazobactam (Sod 3.375 gm/ Dextrose) 50 mls @ 100 mls/hr IVPB Q8H-IV ELLYN; Protocol Last Admin: 03/09/18 17:28 Dose: 100 mls/hr Metoprolol Succinate (Toprol Xl -) 50 mg PO BID [facility] Last Admin: 03/09/18 21:15 Dose: 50 mg Metoprolol Tartrate (Lopressor Injection -) 5 mg IVPUSH Q6H PRN PRN Reason: HR >120 Oxycodone HCl (Roxicodone -) 5 mg PO Q4H PRN PRN Reason: PAIN SCALE 5-10 Last Admin: 03/09/18 21:14 Dose: 5 mg Pantoprazole Sodium (Protonix -) 20 mg PO BID [facility] Last Admin: 03/09/18 21:15 Dose: 20 mg Polyethylene Glycol (Miralax (For Daily Use) -) 17 gm PO DAILY [facility] Last Admin: 03/09/18 11:31 Dose: 17 gm Thiamine HCl (Vitamin B1 -) 100 mg PO DAILY [facility] Last Admin: 03/09/18 09:18 Dose: 100 mg - Objective Vital Signs: Vital Signs Temperature 98.2 F 03/09/18 14:00 Pulse Rate 94 H 03/09/18 22:00 Respiratory Rate 18 03/09/18 22:00 Blood Pressure 143/74 03/09/18 22:00 O2 Sat by Pulse Oximetry (%) 97 03/09/18 20:10 Constitutional: Yes: No Distress, Obese Cardiovascular: Yes: Regular Rate and Rhythm, S1, S2 Respiratory: Yes: Diminished Gastrointestinal: Yes: Normal Bowel Sounds, Soft Edema: Yes Labs: CBC, BMP 03/09/18 05:30 03/09/18 05:30 INR, PTT INR 1.59 (0.83-1.09) H 03/09/18 01:10 Assessment/Plan ? Recurrent vertebral osteomyelitis New onset Afib Continue empiric vancomycin/ zosyn
[2018-03-10] MEDS: HEPARIN - 25,000 UNIT in SODIUM CHLORIDE 495 ML IV SCH ×2 (01:00→22:48)
[2018-03-10] MEDS ORDERED: DEXTROSE 5%-WATER - 50 ML IVPB ONE ×3 (02:12→16:09)
[2018-03-10] MEDS ORDERED: PIPERACILLIN/TAZOBACTAM 3.375 GM VIAL IVPB ONE ×3 (02:12→16:09)
[2018-03-10] MEDS: PIPERACILLIN/TAZOB 3.375 GM 3.375 GM in DEXTROSE 5%-WATER - 50 ML IVPB SCH ×3 (02:32→17:11)
[2018-03-10 06:17] LABS: BASO % 0.4 % (0-2.0); EOS % 0.7 % (0-4.5); HEMATOCRIT 26.3 % (35.4-49); HEMOGLOBIN 8.8 GM/dL (11.7-16.9); LYMPH % 10.8 % (8-40); MCH 28.2 pg (25.7-33.7); MCHC 33.3 g/dl (32.0-35.9); MEAN CELL VOLUME 84.7 fl (80-96); MEAN PLT VOLUME 9.3 fl (7.5-11.1); MONO % 9.3 % (3.8-10.2); NEUT % 78.8 % (42.8-82.8); PLATELET COUNT 362 K/MM3 (134-434); RBC 3.11 M/mm3 (4.00-5.60); RDW 18.1 % (11.9-15.9); WHITE BLOOD COUNT 15.5 K/mm3 (4.0-10.0)
[2018-03-10 06:30] LABS: CHLORIDE 106 mmol/L (98-107); POTASSIUM 4.7 mmol/L (3.5-5.1); SODIUM 139 mmol/L (136-145)
[2018-03-10 06:36] LABS: ALK PHOS 425 U/L (45-117); ANION GAP 10 (8-16); BILIRUBIN,TOTAL 2.1 mg/dL (0.2-1.0); BLOOD UREA NITROGEN 22 mg/dL (7-18); CALCIUM 10.8 mg/dL (8.5-10.1); CO2 23 mmol/L (21-32); GLUCOSE,RANDOM 90 mg/dL (74-106); MAGNESIUM 2.1 mg/dL (1.8-2.4); PHOSPHOROUS 3.2 mg/dL (2.5-4.9); SGOT/AST 20 U/L (15-37); SGPT/ALT 21 U/L (12-78); TOT PROT 7.3 g/dl (6.4-8.2)
[2018-03-10] MEDS: GABAPENTIN 300 MG CAPSULE (FP) PO SCH ×3 (06:41→22:01)
[2018-03-10] MEDS: HEPARIN NA (PORCINE) 5,000 UNITS/ML 1ML VIAL IVPUSH PRN ×3 (08:17→22:47)
--- NOTE | 2018-03-10 09:16 | PN ---
Progress Note, Physician Chief Complaint: Pain Lt knee History of Present Illness: On IV heparin for new onset Afib On zosyn and vanco by ID - Current Medication List Current Medications: Active Medications Acetaminophen (Tylenol -) 325 mg PO Q4H PRN PRN Reason: PAIN SCALE 5-10 Last Admin: 03/09/18 21:15 Dose: 325 mg Diazepam (Valium -) 10 mg PO Q8H PRN PRN Reason: AGITATION Docusate Sodium (Colace -) 100 mg PO BID [facility] Last Admin: 03/09/18 22:00 Dose: 100 mg Gabapentin (Neurontin -) 300 mg PO TID [facility] Last Admin: 03/10/18 06:41 Dose: 300 mg Heparin Sodium (Porcine) (Heparin -) 1,000 unit IVPUSH PRN PRN PRN Reason: Heparin Heparin Sodium (Porcine) (Heparin -) 5,000 unit IVPUSH PRN PRN PRN Reason: Heparin Last Admin: 03/10/18 08:17 Dose: 5,000 unit Heparin Sodium (Porcine) 25, (000 unit/ Sodium Chloride) 500 mls @ 20 mls/hr IV TITR ELLYN; Protocol Last Titration: 03/10/18 08:17 Dose: 1,600 unit/hr, 32 mls/hr Vancomycin HCl (Vancomycin 1 Gm Premix -) 1 gm in 200 mls @ 133.333 mls/hr IVPB Q12H ELLYN; Protocol Last Admin: 03/09/18 22:00 Dose: 133.333 mls/hr Piperacillin Sod/Tazobactam (Sod 3.375 gm/ Dextrose) 50 mls @ 100 mls/hr IVPB Q8H-IV ELLYN; Protocol Last Admin: 03/10/18 02:32 Dose: 100 mls/hr Metoprolol Succinate (Toprol Xl -) 50 mg PO BID [facility] Last Admin: 03/09/18 21:15 Dose: 50 mg Metoprolol Tartrate (Lopressor Injection -) 5 mg IVPUSH Q6H PRN PRN Reason: HR >120 Oxycodone HCl (Roxicodone -) 5 mg PO Q4H PRN PRN Reason: PAIN SCALE 5-10 Last Admin: 03/09/18 21:14 Dose: 5 mg Pantoprazole Sodium (Protonix -) 20 mg PO BID [facility] Last Admin: 03/09/18 21:15 Dose: 20 mg Polyethylene Glycol (Miralax (For Daily Use) -) 17 gm PO DAILY [facility] Last Admin: 03/09/18 11:31 Dose: 17 gm Thiamine HCl (Vitamin B1 -) 100 mg PO DAILY [facility] Last Admin: 03/09/18 09:18 Dose: 100 mg - Objective Vital Signs: Vital Signs Temperature 98.4 F 03/10/18 06:00 Pulse Rate 95 H 03/10/18 06:00 Respiratory Rate 18 03/10/18 06:00 Blood Pressure 133/74 03/10/18 06:00 O2 Sat by Pulse Oximetry (%) 97 03/09/18 20:10 Constitutional: Yes: Moderate Distress Eyes: Yes: WNL HENT: Yes: WNL Neck: Yes: WNL Cardiovascular: Yes: WNL, Regular Rate and Rhythm Respiratory: Yes: WNL Gastrointestinal: Yes: Normal Bowel Sounds ...Rectal Exam: Yes: WNL, Deferred Musculoskeletal: Yes: Back Pain Extremities: Yes: Other (sevior pain Lt knee) Labs: CBC, BMP 03/10/18 05:30 03/10/18 05:30 INR, PTT INR 1.59 (0.83-1.09) H 03/09/18 01:10 Assessment/Plan Continue same trt
[2018-03-10] MEDS: PANTOPRAZOLE 20 MG TABLET (FP) PO SCH ×2 (09:36→22:01)
[2018-03-10] MEDS: THIAMINE HCL 100 MG TABLET (FP) PO SCH (09:36)
[2018-03-10] MEDS: DOCUSATE SODIUM 100 MG CAPSULE (FP) PO SCH ×2 (09:36→22:01)
[2018-03-10] MEDS: POLYETHYLENE GLYCOL 3350 119 GM BTL PO SCH (09:37)
[2018-03-10] MEDS: VANCOMYCIN 1 GM PREMIX - 1 GM/200 ML BAG IVPB SCH ×2 (10:17→23:15)
--- NOTE | 2018-03-10 10:54 | PN ---
Teaching Attending Note Name of Resident: Criselda Mathews ATTENDING PHYSICIAN STATEMENT I saw and evaluated the patient. I reviewed the resident's note and discussed the case with the resident. I agree with the resident's findings and plan as documented. SUBJECTIVE: Pt seen and examined in the ICU. Remains in sinus rhythm. Denies shortness of breath or chest pain. OBJECTIVE: Vital Signs Period Temp Pulse Resp BP Sys/Beasley Pulse Ox Last 24 Hr 98.2 F-99.2 F 79-112 17-127 109-150/56-86 97 Intake & Output 03/07/18 03/08/18 03/09/18 03/10/18 23:59 23:59 23:59 23:59 Intake Total 300 1800 2848 373 Output Total 600 1100 300 Balance 300 1200 1748 73 Weight 117.934 kg 119.323 kg 121.1 kg Gen: NAD at rest Heart: RRR Lung: decreased breath sounds at the bases Abd: soft, nontender Ext: no edema CBC, BMP 03/10/18 05:30 03/10/18 05:30 Active Medications Acetaminophen (Tylenol -) 325 mg PO Q4H PRN PRN Reason: PAIN SCALE 5-10 Last Admin: 03/09/18 21:15 Dose: 325 mg Diazepam (Valium -) 10 mg PO Q8H PRN PRN Reason: AGITATION Docusate Sodium (Colace -) 100 mg PO BID [facility] Last Admin: 03/10/18 09:36 Dose: 100 mg Gabapentin (Neurontin -) 300 mg PO TID [facility] Last Admin: 03/10/18 06:41 Dose: 300 mg Heparin Sodium (Porcine) (Heparin -) 1,000 unit IVPUSH PRN PRN PRN Reason: Heparin Heparin Sodium (Porcine) (Heparin -) 5,000 unit IVPUSH PRN PRN PRN Reason: Heparin Last Admin: 03/10/18 08:17 Dose: 5,000 unit Heparin Sodium (Porcine) 25, (000 unit/ Sodium Chloride) 500 mls @ 20 mls/hr IV TITR ELLYN; Protocol Last Titration: 03/10/18 08:17 Dose: 1,600 unit/hr, 32 mls/hr Vancomycin HCl (Vancomycin 1 Gm Premix -) 1 gm in 200 mls @ 133.333 mls/hr IVPB Q12H ELLYN; Protocol Last Admin: 03/10/18 10:17 Dose: 133.333 mls/hr Piperacillin Sod/Tazobactam (Sod 3.375 gm/ Dextrose) 50 mls @ 100 mls/hr IVPB Q8H-IV ELLYN; Protocol Last Admin: 03/10/18 09:37 Dose: 100 mls/hr Metoprolol Succinate (Toprol Xl -) 50 mg PO BID ELLYN Last Admin: 03/10/18 09:36 Dose: 50 mg Metoprolol Tartrate (Lopressor Injection -) 5 mg IVPUSH Q6H PRN PRN Reason: HR >120 Oxycodone HCl (Roxicodone -) 5 mg PO Q4H PRN PRN Reason: PAIN SCALE 5-10 Last Admin: 03/09/18 21:14 Dose: 5 mg Pantoprazole Sodium (Protonix -) 20 mg PO BID [facility] Last Admin: 03/10/18 09:36 Dose: 20 mg Polyethylene Glycol (Miralax (For Daily Use) -) 17 gm PO DAILY [facility] Last Admin: 03/10/18 09:37 Dose: 17 gm Thiamine HCl (Vitamin B1 -) 100 mg PO DAILY [facility] Last Admin: 03/10/18 09:36 Dose: 100 mg ASSESSMENT AND PLAN: Atrial Fibrillation with RVR now in sinus Likely Obstructive Sleep Apnea r/o Vertebral Osteomyelitis HTN Hypercholesterolemia Alcohol Dependence - continue metoprolol - anticoagulation per cardiology - antibiotics per ID - f/u cultures - pain control - can monitor on telemetry
--- NOTE | 2018-03-10 11:24 | PN ---
Progress Note (short form) - Note Progress Note: s: no cp sob palps dizzy o: Vital Signs Period Temp Pulse Resp BP Sys/Beasley Pulse Ox Last 24 Hr 98.2 F-99.2 F 79-112 17-127 109-150/56-86 97-97 nad no jvd rrr s1s2 no mrg cta bl nl eff aaox3 no le e/c/c abd nt nd pos bs no jaunidce diaphoresis Current Medications Generic Name Dose Route Start Last Admin Trade Name Freq PRN Reason Stop Dose Admin Acetaminophen 325 mg 03/09/18 02:22 03/09/18 21:15 Tylenol - PO 325 mg Q4H PRN Administration PAIN SCALE 5-10 Diazepam 10 mg 03/09/18 14:42 Valium - PO Q8H PRN AGITATION Docusate Sodium 100 mg 03/09/18 10:00 03/10/18 09:36 Colace - PO 100 mg BID E[facility] Administration Gabapentin 300 mg 03/09/18 06:00 03/10/18 06:41 Neurontin - PO 300 mg TID ELLYN Administration Heparin Sodium (Porcine) 1,000 unit 03/09/18 00:01 Heparin - IVPUSH PRN PRN Heparin Heparin Sodium (Porcine) 5,000 unit 03/09/18 00:01 03/10/18 08:17 Heparin - IVPUSH 5,000 unit PRN PRN Administration Heparin Heparin Sodium (Porcine) 25, 500 mls @ 20 mls/hr 03/09/18 00:15 03/10/18 08: 17 000 unit/ Sodium Chloride IV 1,600 unit/hr TITR E[facility]YN 32 mls/hr Titration Protocol 1,000 UNIT/HR Vancomycin HCl 1 gm in 200 mls @ 133.333 mls/hr 03/09/18 11:00 03/10/18 10:17 Vancomycin 1 Gm Premix - IVPB 133.333 mls/hr Q12H [facility] Administration Protocol Piperacillin Sod/Tazobactam 50 mls @ 100 mls/hr 03/09/18 10:00 03/10/18 09:37 Sod 3.375 gm/ Dextrose IVPB 100 mls/hr Q8H-IV [facility] Administration Protocol Metoprolol Succinate 50 mg 03/09/18 22:00 03/10/18 09:36 Toprol Xl - PO 50 mg BID E[facility] Administration Metoprolol Tartrate 5 mg 03/09/18 04:29 Lopressor Injection - IVPUSH Q6H PRN HR >120 Oxycodone HCl 5 mg 03/09/18 02:22 03/09/18 21:14 Roxicodone - PO 5 mg Q4H PRN Administration PAIN SCALE 5-10 Pantoprazole Sodium 20 mg 03/09/18 10:00 03/10/18 09:36 Protonix - PO 20 mg BID E[facility] Administration Polyethylene Glycol 17 gm 03/09/18 10:00 03/10/18 09:37 Miralax (For Daily Use) - PO 17 gm DAILY [facility] Administration Thiamine HCl 100 mg 03/09/18 10:00 03/10/18 09:36 Vitamin B1 - PO 100 mg DAILY [facility] Administration CBC, BMP 03/10/18 05:30 03/10/18 05:30 tele: sr ecg: sr, nl intervals, no ishcemic changes echo 03/2018: nl lv, rv tds, no sig valve path cxr: no chf a/p: 57 m htn here with low back pain. afib: -new onset afib with rvr, now back in sr -cont toprol 50 bid, cont tele -echo unremarkable -tsh wnl -chadsvasc warrants AC, cont hep gtt for now, start noac when ready for dc htn: -cont current meds back pain, vertebral osteo: -plans per NS and ID
--- NOTE | 2018-03-10 11:34 | PN ---
Progress Note, Physician History of Present Illness: Supine in bed No acute distress C/O low back pain, LE weakness Afebrile Aspirate cultures no growth to date - Current Medication List Current Medications: Active Medications Acetaminophen (Tylenol -) 325 mg PO Q4H PRN PRN Reason: PAIN SCALE 5-10 Last Admin: 03/09/18 21:15 Dose: 325 mg Diazepam (Valium -) 10 mg PO Q8H PRN PRN Reason: AGITATION Docusate Sodium (Colace -) 100 mg PO BID [facility] Last Admin: 03/10/18 09:36 Dose: 100 mg Gabapentin (Neurontin -) 300 mg PO TID [facility] Last Admin: 03/10/18 06:41 Dose: 300 mg Heparin Sodium (Porcine) (Heparin -) 1,000 unit IVPUSH PRN PRN PRN Reason: Heparin Heparin Sodium (Porcine) (Heparin -) 5,000 unit IVPUSH PRN PRN PRN Reason: Heparin Last Admin: 03/10/18 08:17 Dose: 5,000 unit Heparin Sodium (Porcine) 25, (000 unit/ Sodium Chloride) 500 mls @ 20 mls/hr IV TITR [facility]YN; Protocol Last Titration: 03/10/18 08:17 Dose: 1,600 unit/hr, 32 mls/hr Vancomycin HCl (Vancomycin 1 Gm Premix -) 1 gm in 200 mls @ 133.333 mls/hr IVPB Q12H [facility]; Protocol Last Admin: 03/10/18 10:17 Dose: 133.333 mls/hr Piperacillin Sod/Tazobactam (Sod 3.375 gm/ Dextrose) 50 mls @ 100 mls/hr IVPB Q8H-IV [facility]; Protocol Last Admin: 03/10/18 09:37 Dose: 100 mls/hr Metoprolol Succinate (Toprol Xl -) 50 mg PO BID [facility] Last Admin: 03/10/18 09:36 Dose: 50 mg Metoprolol Tartrate (Lopressor Injection -) 5 mg IVPUSH Q6H PRN PRN Reason: HR >120 Oxycodone HCl (Roxicodone -) 5 mg PO Q4H PRN PRN Reason: PAIN SCALE 5-10 Last Admin: 03/09/18 21:14 Dose: 5 mg Pantoprazole Sodium (Protonix -) 20 mg PO BID [facility] Last Admin: 03/10/18 09:36 Dose: 20 mg Polyethylene Glycol (Miralax (For Daily Use) -) 17 gm PO DAILY [facility] Last Admin: 03/10/18 09:37 Dose: 17 gm Thiamine HCl (Vitamin B1 -) 100 mg PO DAILY [facility] Last Admin: 03/10/18 09:36 Dose: 100 mg - Objective Vital Signs: Vital Signs Temperature 98.3 F 03/10/18 10:00 Pulse Rate 102 H 03/10/18 10:00 Respiratory Rate 21 03/10/18 10:00 Blood Pressure 150/86 03/10/18 10:00 O2 Sat by Pulse Oximetry (%) 97 03/10/18 09:00 Constitutional: Yes: No Distress, Obese Cardiovascular: Yes: Regular Rate and Rhythm, S1, S2 Respiratory: Yes: CTA Bilaterally Gastrointestinal: Yes: Normal Bowel Sounds, Soft, Abdomen, Obese. No: Tenderness Edema: Yes Labs: CBC, BMP 03/10/18 05:30 03/10/18 05:30 INR, PTT INR 1.59 (0.83-1.09) H 03/09/18 01:10 Assessment/Plan ? Recurrent vertebral osteomyelitis New onset Afib Continue empiric vancomycin/ zosyn Vancomycin level
--- NOTE | 2018-03-10 11:38 | PN ---
Physical Exam: SUBJECTIVE: Patient seen and examined at bedside. no acute events overnight. patients HR remained under control and he remained in sinus rhythm. he still endorses back pain and LE weakness, in addition to constipation- patient has not had a bowel movement in 8 days. denies any CP/SOB/N/V OBJECTIVE: Vital Signs Period Temp Pulse Resp BP Sys/Beasley Pulse Ox Last 24 Hr 98.2 F-99.2 F 79-112 17-127 109-150/56-86 97-97 GENERAL: The patient is awake, alert, and fully oriented, in no acute distress. NECK: no JVD appreciated LUNGS:diminished breath sounds HEART: Regular rate and rhythm, S1, S2 without murmur, rub or gallop. ABDOMEN: Soft, nontender, nondistended, normoactive bowel sounds, no guarding, no rebound, no hepatosplenomegaly, no masses. EXTREMITIES: 2+ pulses, warm, well-perfused, no edema. NEUROLOGICAL: Cranial nerves II through XII grossly intact. Normal speech, gait not observed. PSYCH: Normal mood, normal affect. SKIN: Warm, dry, normal turgor, no rashes or lesions noted Laboratory Results - last 24 hr 03/09/18 03/09/18 03/10/18 13:50 21:45 05:30 WBC 15.5 H RBC 3.11 L Hgb 8.8 L Hct 26.3 L MCV 84.7 MCH 28.2 MCHC 33.3 RDW 18.1 H Plt Count 362 MPV 9.3 Absolute Neuts (auto) 12.3 Neutrophils % 78.8 Lymphocytes % 10.8 Monocytes % 9.3 Eosinophils % 0.7 Basophils % 0.4 Nucleated RBC % 0 PTT (Actin FS) 34.7 35.6 Sodium Potassium Chloride Carbon Dioxide Anion Gap BUN Creatinine Creat Clearance w eGFR Random Glucose Calcium Phosphorus Magnesium Total Bilirubin AST ALT Alkaline Phosphatase Total Protein Albumin 03/10/18 05:30 WBC RBC Hgb Hct MCV MCH MCHC RDW Plt Count MPV Absolute Neuts (auto) Neutrophils % Lymphocytes % Monocytes % Eosinophils % Basophils % Nucleated RBC % PTT (Actin FS) Sodium 139 Potassium 4.7 Chloride 106 Carbon Dioxide 23 Anion Gap 10 BUN 22 H Creatinine 1.0 Creat Clearance w eGFR > 60 Random Glucose 90 Calcium 10.8 H Phosphorus 3.2 Magnesium 2.1 D Total Bilirubin 2.1 H AST 20 D ALT 21 D Alkaline Phosphatase 425 H D Total Protein 7.3 Albumin 2.0 L Active Medications Generic Name Dose Route Start Last Admin Trade Name Freq PRN Reason Stop Dose Admin Acetaminophen 325 mg 03/09/18 02:22 03/09/18 21:15 Tylenol - PO 325 mg Q4H PRN Administration PAIN SCALE 5-10 Diazepam 10 mg 03/09/18 14:42 Valium - PO Q8H PRN AGITATION Docusate Sodium 100 mg 03/09/18 10:00 03/10/18 09:36 Colace - PO 100 mg BID ELLYN Administration Gabapentin 300 mg 03/09/18 06:00 03/10/18 06:41 Neurontin - PO 300 mg TID ELLYN Administration Heparin Sodium (Porcine) 1,000 unit 03/09/18 00:01 Heparin - IVPUSH PRN PRN Heparin Heparin Sodium (Porcine) 5,000 unit 03/09/18 00:01 03/10/18 08:17 Heparin - IVPUSH 5,000 unit PRN PRN Administration Heparin Heparin Sodium (Porcine) 25, 500 mls @ 20 mls/hr 03/09/18 00:15 03/10/18 08: 17 000 unit/ Sodium Chloride IV 1,600 unit/hr TITR ELLYN 32 mls/hr Titration Protocol 1,000 UNIT/HR Vancomycin HCl 1 gm in 200 mls @ 133.333 mls/hr 03/09/18 11:00 03/10/18 10:17 Vancomycin 1 Gm Premix - IVPB 133.333 mls/hr Q12H E[facility] Administration Protocol Piperacillin Sod/Tazobactam 50 mls @ 100 mls/hr 03/09/18 10:00 03/10/18 09:37 Sod 3.375 gm/ Dextrose IVPB 100 mls/hr Q8H-IV [facility] Administration Protocol Metoprolol Succinate 50 mg 03/09/18 22:00 03/10/18 09:36 Toprol Xl - PO 50 mg BID ELLYN Administration Metoprolol Tartrate 5 mg 03/09/18 04:29 Lopressor Injection - IVPUSH Q6H PRN HR >120 Oxycodone HCl 5 mg 03/09/18 02:22 03/09/18 21:14 Roxicodone - PO 5 mg Q4H PRN Administration PAIN SCALE 5-10 Pantoprazole Sodium 20 mg 03/09/18 10:00 03/10/18 09:36 Protonix - PO 20 mg BID ELLYN Administration Polyethylene Glycol 17 gm 03/09/18 10:00 03/10/18 09:37 Miralax (For Daily Use) - PO 17 gm DAILY E[facility] Administration Thiamine HCl 100 mg 03/09/18 10:00 03/10/18 09:36 Vitamin B1 - PO 100 mg DAILY E[facility] Administration ASSESSMENT/PLAN: 57 y/o male with PMH of HTN, HLD, gout, chronic low back pain, presented to the ER with low back pain being treated for possible osteomyelitis, is currently being monitored in the ICU due to new onset AFIB with RVR. Patient is currently asymptomatic and has converted back to normal sinus rhythm. Cardio: patient converted back to normal sinus rhythm around noon yesterday and remains in sinus -continue to monitor HR -currently on heparin drip for AC -on Toprol XL 50 BID for rate control -further AC upon discharge as per cardiology -possible sleep study as outpatient for sleep apnea MSK: -patient still complaining of chronic pain -aspirate cultures are negative -still continue with vanco and zosyn as per ID -continue with pain medications -given constipation tap water enema was ordered GI prophyalxis: protonix DVT prophyalxis: Heparin drip F/E/N: -not on fluids -replete electrolytes when necessary -sodium controlled diet dispo: transfer to telemetry Problem List - Problems (1) New onset a-fib Code(s): I48.91 - UNSPECIFIED ATRIAL FIBRILLATION (2) Shoulder pain Code(s): M25.519 - PAIN IN UNSPECIFIED SHOULDER Qualifiers: Chronicity: acute Laterality: right Qualified Code(s): M25.511 - Pain in right shoulder (3) Chronic alcoholism Code(s): F10.20 - ALCOHOL DEPENDENCE, UNCOMPLICATED Visit type - Emergency Visit Emergency Visit: Yes ED Registration Date: 03/08/18 Care time: The patient presented to the Emergency Department on the above date and was hospitalized for further evaluation of their emergent condition. - New Patient This patient is new to me today: No - Critical Care Critical Care patient: Yes Total Critical Care Time (in minutes): 35 Critical Care Statement: The care of this patient involved high complexity decision making to prevent further life threatening deterioration of the patient 's condition and/or to evaluate & treat vital organ system(s) failure or risk of failure.
[2018-03-10 14:53] VITALS: BMI 37.0
[2018-03-10] MEDS: oxyCODONE HCL 5 MG TABLET PO PRN ×2 (15:29→22:09)
[2018-03-10] MEDS: ACETAMINOPHEN 325 MG TABLET (FP) PO PRN (22:08)
[2018-03-11] MEDS ORDERED: DEXTROSE 5%-WATER - 50 ML IVPB ONE ×3 (01:54→17:11)
[2018-03-11] MEDS ORDERED: PIPERACILLIN/TAZOBACTAM 3.375 GM VIAL IVPB ONE ×3 (01:54→17:11)
[2018-03-11] MEDS: PIPERACILLIN/TAZOB 3.375 GM 3.375 GM in DEXTROSE 5%-WATER - 50 ML IVPB SCH ×4 (01:59→17:24)
[2018-03-11] MEDS: GABAPENTIN 300 MG CAPSULE (FP) PO SCH ×3 (05:53→22:39)
[2018-03-11 07:19] LABS: BASO % 0.5 % (0-2.0); EOS % 0.3 % (0-4.5); LYMPH % 11.8 % (8-40); MCH 28.1 pg (25.7-33.7); MCHC 33.4 g/dl (32.0-35.9); MEAN CELL VOLUME 84.2 fl (80-96); MEAN PLT VOLUME 9.3 fl (7.5-11.1); NEUT % 77.4 % (42.8-82.8); PLATELET COUNT 379 K/MM3 (134-434); RBC 3.21 M/mm3 (4.00-5.60); RDW 18.2 % (11.9-15.9); WHITE BLOOD COUNT 17.7 K/mm3 (4.0-10.0)
[2018-03-11 07:49] LABS: ANION GAP 9 (8-16); BLOOD UREA NITROGEN 20 mg/dL (7-18); CALCIUM 10.6 mg/dL (8.5-10.1); CHLORIDE 101 mmol/L (98-107); CO2 25 mmol/L (21-32); GLUCOSE,RANDOM 88 mg/dL (74-106); POTASSIUM 4.6 mmol/L (3.5-5.1); SGOT/AST 19 U/L (15-37); SODIUM 135 mmol/L (136-145)
[2018-03-11 07:52] LABS: ALK PHOS 401 U/L (45-117); BILIRUBIN,TOTAL 1.8 mg/dL (0.2-1.0); SGPT/ALT 19 U/L (12-78); TOT PROT 7.9 g/dl (6.4-8.2)
[2018-03-11] MEDS: HEPARIN NA (PORCINE) 5,000 UNITS/ML 1ML VIAL IVPUSH PRN (08:44)
[2018-03-11] MEDS: HEPARIN - 25,000 UNIT in SODIUM CHLORIDE 495 ML IV SCH (08:44)
[2018-03-11] MEDS: ACETAMINOPHEN 325 MG TABLET (FP) PO PRN ×3 (08:46→19:40)
[2018-03-11] MEDS: oxyCODONE HCL 5 MG TABLET PO PRN ×3 (08:46→19:40)
[2018-03-11] MEDS: PANTOPRAZOLE 20 MG TABLET (FP) PO SCH ×3 (09:41→22:39)
[2018-03-11] MEDS: THIAMINE HCL 100 MG TABLET (FP) PO SCH ×2 (09:41→10:26)
[2018-03-11] MEDS: DOCUSATE SODIUM 100 MG CAPSULE (FP) PO SCH ×3 (09:41→22:36)
[2018-03-11] MEDS ORDERED: HEPARIN NA (PORCINE) 5,000 UNITS/ML 1ML VIAL IVPUSH PRN ×2 (09:47)
[2018-03-11] MEDS ORDERED: HEPARIN - 25,000 UNIT in SODIUM CHLORIDE 495 ML IV SCH (09:47)
[2018-03-11] MEDS ORDERED: METOPROLOL TARTRATE 5 MG/5 ML VIAL IVPUSH PRN (09:47)
--- NOTE | 2018-03-11 09:57 | PN ---
Progress Note (short form) - Note Progress Note: s: no cp sob palps dizzy o: Vital Signs Period Temp Pulse Resp BP Sys/Beasley Pulse Ox Last 24 Hr 97.6 F-99 F 102-111 20-25 126-156/78-86 99 nad no jvd rrr s1s2 no mrg cta bl nl eff aaox3 no le e/c/c abd nt nd pos bs no jaunidce diaphoresis Current Medications Generic Name Dose Route Start Last Admin Trade Name Freq PRN Reason Stop Dose Admin Acetaminophen 325 mg 03/11/18 09:47 Tylenol - PO Q4H PRN PAIN SCALE 5-10 Diazepam 10 mg 03/09/18 14:42 Valium - PO Q8H PRN AGITATION Docusate Sodium 100 mg 03/11/18 10:00 Colace - PO BID [facility] Gabapentin 300 mg 03/11/18 14:00 Neurontin - PO TID ELLYN Heparin Sodium (Porcine) 1,000 unit 03/11/18 09:47 Heparin - IVPUSH PRN PRN Heparin Heparin Sodium (Porcine) 5,000 unit 03/11/18 09:47 Heparin - IVPUSH PRN PRN Heparin Heparin Sodium (Porcine) 25, 500 mls @ 20 mls/hr 03/11/18 09:47 000 unit/ Sodium Chloride IV TITR ELLYN Protocol 1,000 UNIT/HR Vancomycin HCl 1 gm in 200 mls @ 133.333 mls/hr 03/11/18 11:00 Vancomycin 1 Gm Premix - IVPB Q12H [facility] Protocol Piperacillin Sod/Tazobactam 50 mls @ 100 mls/hr 03/11/18 10:00 Sod 3.375 gm/ Dextrose IVPB Q8H-IV E[facility] Protocol Metoprolol Succinate 50 mg 03/11/18 10:00 Toprol Xl - PO BID E[facility]YN Metoprolol Tartrate 5 mg 03/11/18 09:47 Lopressor Injection - IVPUSH Q6H PRN HR >120 Oxycodone HCl 5 mg 03/11/18 09:47 Roxicodone - PO Q4H PRN PAIN SCALE 5-10 Pantoprazole Sodium 20 mg 03/11/18 10:00 Protonix - PO BID [facility] Polyethylene Glycol 17 gm 03/11/18 10:00 Miralax (For Daily Use) - PO DAILY [facility] Thiamine HCl 100 mg 03/11/18 10:00 Vitamin B1 - PO DAILY E[facility] CBC, BMP 03/11/18 06:10 03/11/18 06:10 tele: sr ecg: sr, nl intervals, no ishcemic changes echo 03/2018: nl lv, rv tds, no sig valve path cxr: no chf a/p: 57 m htn here with low back pain. afib: -new onset afib with rvr, now back in sr -cont toprol 50 bid -echo unremarkable -tsh wnl -chadsvasc warrants AC, cont hep gtt for now, start noac when ready for dc htn: -cont current meds back pain, vertebral osteo: -plans per NS and ID
[2018-03-11] MEDS ORDERED: PT OWN MED DRAWER 7, Y5N ONE ×2 (10:28→10:54)
[2018-03-11] MEDS: POLYETHYLENE GLYCOL 3350 119 GM BTL PO SCH (10:31)
[2018-03-11] MEDS: VANCOMYCIN 1 GM PREMIX - 1 GM/200 ML BAG IVPB SCH ×2 (10:33→22:39)
[2018-03-11 10:57] LABS: ANISOCYTOSIS 1+; MACROCYTOSIS 1+; PLATELET ESTIMATE NORMAL
--- NOTE | 2018-03-11 11:23 | PN ---
Progress Note (short form) - Note Progress Note: No CP or SOB. No acute events overnight. Intake & Output 03/08/18 03/09/18 03/10/18 03/11/18 23:59 23:59 23:59 23:59 Intake Total 1800 2848 2373 Output Total 600 1100 1500 Balance 1200 1748 873 Weight 260 lb 263 lb 1 oz 266 lb 15.677 oz Last Vital Signs Temp Pulse Resp BP Pulse Ox 98 F 100 H 18 138/92 99 03/11/18 10:00 03/11/18 10:00 03/11/18 10:00 03/11/18 10:00 03/10/18 21:00 Active Medications Acetaminophen (Tylenol -) 325 mg PO Q4H PRN PRN Reason: PAIN SCALE 5-10 Diazepam (Valium -) 10 mg PO Q8H PRN PRN Reason: AGITATION Docusate Sodium (Colace -) 100 mg PO BID [facility] Last Admin: 03/11/18 10:26 Dose: Not Given Gabapentin (Neurontin -) 300 mg PO TID [facility] Heparin Sodium (Porcine) (Heparin -) 1,000 unit IVPUSH PRN PRN PRN Reason: Heparin Heparin Sodium (Porcine) (Heparin -) 5,000 unit IVPUSH PRN PRN PRN Reason: Heparin Heparin Sodium (Porcine) 25, (000 unit/ Sodium Chloride) 500 mls @ 20 mls/hr IV TITR ELLYN; Protocol Last Admin: 03/11/18 10:25 Dose: 2,050 unit/hr, 41 mls/hr Vancomycin HCl (Vancomycin 1 Gm Premix -) 1 gm in 200 mls @ 133.333 mls/hr IVPB Q12H [facility]; Protocol Last Admin: 03/11/18 10:33 Dose: 133.333 mls/hr Piperacillin Sod/Tazobactam (Sod 3.375 gm/ Dextrose) 50 mls @ 100 mls/hr IVPB Q8H-IV [facility]; Protocol Last Admin: 03/11/18 10:27 Dose: Not Given Metoprolol Succinate (Toprol Xl -) 50 mg PO BID [facility] Last Admin: 03/11/18 10:26 Dose: Not Given Metoprolol Tartrate (Lopressor Injection -) 5 mg IVPUSH Q6H PRN PRN Reason: HR >120 Oxycodone HCl (Roxicodone -) 5 mg PO Q4H PRN PRN Reason: PAIN SCALE 5-10 Pantoprazole Sodium (Protonix -) 20 mg PO BID [facility] Last Admin: 03/11/18 10:26 Dose: Not Given Polyethylene Glycol (Miralax (For Daily Use) -) 17 gm PO DAILY [facility] Last Admin: 03/11/18 10:31 Dose: 17 gm Thiamine HCl (Vitamin B1 -) 100 mg PO DAILY [facility] Last Admin: 03/11/18 10:26 Dose: Not Given Gen: NAD at rest Heart: RRR Lung: decreased breath sounds at the bases Abd: soft, nontender Ext: no edema Laboratory Results - last 24 hr 03/10/18 03/10/18 03/10/18 14:30 21:35 21:35 WBC RBC Hgb Hct MCV MCH MCHC RDW Plt Count MPV Absolute Neuts (auto) Neutrophils % Neutrophils % (Manual) Band Neutrophils % Lymphocytes % Lymphocytes % (Manual) Monocytes % Monocytes % (Manual) Eosinophils % Eosinophils % (Manual) Basophils % Basophils % (Manual) Myelocytes % (Man) Promyelocytes % (Man) Blast Cells % (Manual) Nucleated RBC % Metamyelocytes Hypochromia Platelet Estimate Polychromasia Poikilocytosis Anisocytosis Microcytosis Macrocytosis PTT (Actin FS) 35.2 37.5 H Sodium Potassium Chloride Carbon Dioxide Anion Gap BUN Creatinine Creat Clearance w eGFR Random Glucose Calcium Phosphorus Magnesium Total Bilirubin AST ALT Alkaline Phosphatase Total Protein Albumin Vancomycin Pre-Dose 10.68 H 03/11/18 03/11/18 03/11/18 06:10 06:10 06:10 WBC 17.7 H RBC 3.21 L Hgb 9.0 L Hct 27.0 L MCV 84.2 MCH 28.1 MCHC 33.4 RDW 18.2 H Plt Count 379 MPV 9.3 Absolute Neuts (auto) 13.7 Neutrophils % 77.4 Neutrophils % (Manual) 77.6 Band Neutrophils % 0.0 Lymphocytes % 11.8 Lymphocytes % (Manual) 10.7 Monocytes % 10.0 Monocytes % (Manual) 10 Eosinophils % 0.3 Eosinophils % (Manual) 0.0 Basophils % 0.5 Basophils % (Manual) 1.0 Myelocytes % (Man) 0 Promyelocytes % (Man) 0 Blast Cells % (Manual) 0 Nucleated RBC % 0 Metamyelocytes 0 Hypochromia 0 Platelet Estimate Normal Polychromasia 1+ Poikilocytosis 0 Anisocytosis 1+ Microcytosis 1+ Macrocytosis 1+ PTT (Actin FS) 35.3 Sodium 135 L Potassium 4.6 Chloride 101 Carbon Dioxide 25 Anion Gap 9 BUN 20 H Creatinine 1.0 Creat Clearance w eGFR > 60 Random Glucose 88 Calcium 10.6 H Phosphorus 4.0 D Magnesium 2.0 Total Bilirubin 1.8 H AST 19 ALT 19 Alkaline Phosphatase 401 H D Total Protein 7.9 Albumin 2.0 L Vancomycin Pre-Dose ASSESSMENT AND PLAN: Atrial Fibrillation with RVR now in sinus Likely Obstructive Sleep Apnea r/o Vertebral Osteomyelitis HTN Hypercholesterolemia Alcohol Dependence - Metoprolol - AC per cardiology - antibiotics per ID - Will need sleep workup after D/C - pain control - Telemetry monitoring Dr Espinosa
[2018-03-11] MEDS ORDERED: diazePAM 5 MG TABLET PO PRN (12:38)
--- NOTE | 2018-03-11 12:38 | PN ---
Progress Note, Physician Chief Complaint: C/O pain Lt knee - Current Medication List Current Medications: Active Medications Acetaminophen (Tylenol -) 325 mg PO Q4H PRN PRN Reason: PAIN SCALE 5-10 Apixaban (Eliquis -) 5 mg PO BID [facility] Diazepam (Valium -) 10 mg PO Q8H PRN PRN Reason: AGITATION Docusate Sodium (Colace -) 100 mg PO BID [facility] Last Admin: 03/11/18 10:26 Dose: Not Given Gabapentin (Neurontin -) 300 mg PO TID [facility] Heparin Sodium (Porcine) (Heparin -) 1,000 unit IVPUSH PRN PRN PRN Reason: Heparin Heparin Sodium (Porcine) (Heparin -) 5,000 unit IVPUSH PRN PRN PRN Reason: Heparin Vancomycin HCl (Vancomycin 1 Gm Premix -) 1 gm in 200 mls @ 133.333 mls/hr IVPB Q12H [facility]; Protocol Last Admin: 03/11/18 10:33 Dose: 133.333 mls/hr Piperacillin Sod/Tazobactam (Sod 3.375 gm/ Dextrose) 50 mls @ 100 mls/hr IVPB Q8H-IV [facility]; Protocol Last Admin: 03/11/18 10:27 Dose: Not Given Metoprolol Succinate (Toprol Xl -) 50 mg PO BID [facility] Last Admin: 03/11/18 10:26 Dose: Not Given Metoprolol Tartrate (Lopressor Injection -) 5 mg IVPUSH Q6H PRN PRN Reason: HR >120 Oxycodone HCl (Roxicodone -) 5 mg PO Q4H PRN PRN Reason: PAIN SCALE 5-10 Pantoprazole Sodium (Protonix -) 20 mg PO BID [facility] Last Admin: 03/11/18 10:26 Dose: Not Given Polyethylene Glycol (Miralax (For Daily Use) -) 17 gm PO DAILY [facility] Last Admin: 03/11/18 10:31 Dose: 17 gm Thiamine HCl (Vitamin B1 -) 100 mg PO DAILY [facility] Last Admin: 03/11/18 10:26 Dose: Not Given - Objective Vital Signs: Vital Signs Temperature 98 F 03/11/18 10:00 Pulse Rate 100 H 03/11/18 10:00 Respiratory Rate 18 03/11/18 10:00 Blood Pressure 138/92 03/11/18 10:00 O2 Sat by Pulse Oximetry (%) 97 03/11/18 09:00 Constitutional: Yes: Mild Distress Eyes: Yes: WNL, Occular Prosthesis Neck: Yes: WNL Cardiovascular: Yes: Regular Rate and Rhythm Respiratory: Yes: Regular Gastrointestinal: Yes: Normal Bowel Sounds ...Rectal Exam: Yes: Deferred Genitourinary: Yes: WNL Musculoskeletal: Yes: Muscle Weakness Edema: No Neurological: Yes: Alert Labs: CBC, BMP 03/11/18 06:10 03/11/18 06:10 INR, PTT INR 1.59 (0.83-1.09) H 03/09/18 01:10 Assessment/Plan WBC going up 17 today On vanco and zosyn Continue same trt DC iv heparin ,start eliquis
[2018-03-11] MEDS ORDERED: MAGNESIUM CITRATE 300 ML BOTTLE PO ONE (14:00)
[2018-03-11] MEDS: APIXABAN 5 MG TABLET PO SCH (22:38)
[2018-03-12] MEDS ORDERED: DEXTROSE 5%-WATER - 50 ML IVPB ONE ×3 (00:22→16:23)
[2018-03-12] MEDS ORDERED: PIPERACILLIN/TAZOBACTAM 3.375 GM VIAL IVPB ONE ×3 (00:22→16:23)
[2018-03-12] MEDS: ACETAMINOPHEN 325 MG TABLET (FP) PO PRN ×4 (00:23→20:15)
[2018-03-12] MEDS: oxyCODONE HCL 5 MG TABLET PO PRN ×4 (00:23→20:05)
[2018-03-12] MEDS: PIPERACILLIN/TAZOB 3.375 GM 3.375 GM in DEXTROSE 5%-WATER - 50 ML IVPB SCH ×3 (01:34→17:21)
[2018-03-12] MEDS: GABAPENTIN 300 MG CAPSULE (FP) PO SCH ×3 (05:41→23:06)
[2018-03-12 06:47] LABS: HEMATOCRIT 28.7 % (35.4-49); HEMOGLOBIN 9.6 GM/dL (11.7-16.9); MCHC 33.3 g/dl (32.0-35.9); MEAN PLT VOLUME 8.2 fl (7.5-11.1); PLATELET COUNT 478 K/MM3 (134-434); RBC 3.41 M/mm3 (4.00-5.60); WHITE BLOOD COUNT 14.7 K/mm3 (4.0-10.0)
[2018-03-12] MEDS: POLYETHYLENE GLYCOL 3350 119 GM BTL PO SCH (09:18)
[2018-03-12] MEDS: THIAMINE HCL 100 MG TABLET (FP) PO SCH (09:18)
[2018-03-12] MEDS: DOCUSATE SODIUM 100 MG CAPSULE (FP) PO SCH ×2 (09:18→23:06)
[2018-03-12] MEDS: PANTOPRAZOLE 20 MG TABLET (FP) PO SCH ×2 (09:18→23:06)
[2018-03-12] MEDS: APIXABAN 5 MG TABLET PO SCH ×2 (09:18→23:06)
--- NOTE | 2018-03-12 10:12 | PN ---
Progress Note (short form) - Note Progress Note: s: no cp sob palps dizzy o: Vital Signs Period Temp Pulse Resp BP Sys/Beasley Pulse Ox Last 24 Hr 97.9 F-99 F 88-94 18-20 128-147/72-84 98 nad no jvd rrr s1s2 no mrg cta bl nl eff aaox3 no le e/c/c abd nt nd pos bs no jaunidce diaphoresis Current Medications Generic Name Dose Route Start Last Admin Trade Name Freq PRN Reason Stop Dose Admin Acetaminophen 325 mg 03/11/18 09:47 03/12/18 05:41 Tylenol - PO 325 mg Q4H PRN Administration PAIN SCALE 5-10 Apixaban 5 mg 03/11/18 22:00 03/12/18 09:18 Eliquis - PO 5 mg BID [facility] Administration Diazepam 5 mg 03/11/18 12:38 Valium - PO Q8H PRN WITHDRAWAL(CONT SUBST) Docusate Sodium 100 mg 03/11/18 10:00 03/12/18 09:18 Colace - PO 100 mg BID [facility] Administration Gabapentin 300 mg 03/11/18 14:00 03/12/18 05:41 Neurontin - PO 300 mg TID [facility] Administration Heparin Sodium (Porcine) 1,000 unit 03/11/18 09:47 Heparin - IVPUSH PRN PRN Heparin Heparin Sodium (Porcine) 5,000 unit 03/11/18 09:47 Heparin - IVPUSH PRN PRN Heparin Vancomycin HCl 1 gm in 200 mls @ 133.333 mls/hr 03/11/18 11:00 03/11/18 22:39 Vancomycin 1 Gm Premix - IVPB 133.333 mls/hr Q12H [facility] Administration Protocol Piperacillin Sod/Tazobactam 50 mls @ 100 mls/hr 03/11/18 10:00 03/12/18 09:18 Sod 3.375 gm/ Dextrose IVPB 100 mls/hr Q8H-IV [facility] Administration Protocol Metoprolol Succinate 50 mg 03/11/18 10:00 03/12/18 09:18 Toprol Xl - PO 50 mg BID [facility] Administration Metoprolol Tartrate 5 mg 03/11/18 09:47 Lopressor Injection - IVPUSH Q6H PRN HR >120 Oxycodone HCl 5 mg 03/11/18 09:47 08/12/18 05:41 Roxicodone - PO 5 mg Q4H PRN Administration PAIN SCALE 5-10 Pantoprazole Sodium 20 mg 03/11/18 10:00 03/12/18 09:18 Protonix - PO 20 mg BID [facility] Administration Polyethylene Glycol 17 gm 03/11/18 10:00 03/12/18 09:18 Miralax (For Daily Use) - PO Not Given DAILY [facility] Thiamine HCl 100 mg 03/11/18 10:00 03/12/18 09:18 Vitamin B1 - PO 100 mg DAILY [facility] Administration CBC, BMP 03/12/18 05:30 03/11/18 06:10 tele: sr ecg: sr, nl intervals, no ishcemic changes echo 03/2018: nl lv, rv tds, no sig valve path cxr: no chf a/p: 57 m htn here with low back pain. afib: -new onset afib with rvr, now back in sr -cont toprol 50 bid -echo unremarkable -tsh wnl -chadsvasc warrants AC, cont hep gtt for now, start noac when ready for dc htn: -cont current meds back pain, vertebral osteo: -plans per NS and ID
--- NOTE | 2018-03-12 11:05 | PN ---
Progress Note (short form) - Note Progress Note: No CP or SOB. Comfortable on RA. No acute events overnight. Intake & Output 03/09/18 03/10/18 03/11/18 03/12/18 23:59 23:59 23:59 23:59 Intake Total 2848 2373 540 290 Output Total 1100 1500 Balance 1748 873 540 290 Weight 263 lb 1 oz 266 lb 15.677 oz Last Vital Signs Temp Pulse Resp BP Pulse Ox 98.6 F 92 H 18 128/84 99 03/12/18 09:00 03/12/18 09:00 03/12/18 09:00 03/12/18 09:00 03/12/18 09:00 Active Medications Acetaminophen (Tylenol -) 325 mg PO Q4H PRN PRN Reason: PAIN SCALE 5-10 Last Admin: 03/12/18 05:41 Dose: 325 mg Apixaban (Eliquis -) 5 mg PO BID [facility] Last Admin: 03/12/18 09:18 Dose: 5 mg Diazepam (Valium -) 5 mg PO Q8H PRN PRN Reason: WITHDRAWAL(CONT SUBST) Docusate Sodium (Colace -) 100 mg PO BID [facility] Last Admin: 03/12/18 09:18 Dose: 100 mg Gabapentin (Neurontin -) 300 mg PO TID [facility] Last Admin: 03/12/18 05:41 Dose: 300 mg Heparin Sodium (Porcine) (Heparin -) 1,000 unit IVPUSH PRN PRN PRN Reason: Heparin Heparin Sodium (Porcine) (Heparin -) 5,000 unit IVPUSH PRN PRN PRN Reason: Heparin Vancomycin HCl (Vancomycin 1 Gm Premix -) 1 gm in 200 mls @ 133.333 mls/hr IVPB Q12H [facility]; Protocol Last Admin: 03/11/18 22:39 Dose: 133.333 mls/hr Piperacillin Sod/Tazobactam (Sod 3.375 gm/ Dextrose) 50 mls @ 100 mls/hr IVPB Q8H-IV [facility]; Protocol Last Admin: 03/12/18 09:18 Dose: 100 mls/hr Metoprolol Succinate (Toprol Xl -) 50 mg PO BID [facility] Last Admin: 03/12/18 09:18 Dose: 50 mg Metoprolol Tartrate (Lopressor Injection -) 5 mg IVPUSH Q6H PRN PRN Reason: HR >120 Oxycodone HCl (Roxicodone -) 5 mg PO Q4H PRN PRN Reason: PAIN SCALE 5-10 Last Admin: 03/12/18 05:41 Dose: 5 mg Pantoprazole Sodium (Protonix -) 20 mg PO BID [facility] Last Admin: 03/12/18 09:18 Dose: 20 mg Polyethylene Glycol (Miralax (For Daily Use) -) 17 gm PO DAILY [facility] Last Admin: 03/12/18 09:18 Dose: Not Given Thiamine HCl (Vitamin B1 -) 100 mg PO DAILY [facility] Last Admin: 03/12/18 09:18 Dose: 100 mg Gen: NAD at rest Heart: RRR Lung: decreased breath sounds at the bases Abd: soft, nontender Ext: no edema Laboratory Results - last 24 hr 03/11/18 03/11/18 03/12/18 06:10 14:58 05:30 WBC 14.7 H RBC 3.41 L Hgb 9.6 L Hct 28.7 L MCV 84.0 MCH 28.0 MCHC 33.3 RDW 18.0 H Plt Count 478 H D MPV 8.2 D Neutrophils % (Manual) 77.6 Band Neutrophils % 0.0 Lymphocytes % (Manual) 10.7 Monocytes % (Manual) 10 Eosinophils % (Manual) 0.0 Basophils % (Manual) 1.0 Myelocytes % (Man) 0 Promyelocytes % (Man) 0 Blast Cells % (Manual) 0 Metamyelocytes 0 Hypochromia 0 Platelet Estimate Normal Polychromasia 1+ Poikilocytosis 0 Anisocytosis 1+ Microcytosis 1+ Macrocytosis 1+ PTT (Actin FS) 33.2 03/12/18 05:30 WBC RBC Hgb Hct MCV MCH MCHC RDW Plt Count MPV Neutrophils % (Manual) Band Neutrophils % Lymphocytes % (Manual) Monocytes % (Manual) Eosinophils % (Manual) Basophils % (Manual) Myelocytes % (Man) Promyelocytes % (Man) Blast Cells % (Manual) Metamyelocytes Hypochromia Platelet Estimate Polychromasia Poikilocytosis Anisocytosis Microcytosis Macrocytosis PTT (Actin FS) 32.9 ASSESSMENT AND PLAN: Atrial Fibrillation with RVR now in sinus Likely Obstructive Sleep Apnea r/o Vertebral Osteomyelitis HTN Hypercholesterolemia Alcohol Dependence High clinical suspicion of OSAS - Sleep screen - Metoprolol - AC per cardiology - antibiotics per ID - Will need formal sleep workup after D/C - pain control - Telemetry monitoring Dr Espinosa
[2018-03-12] MEDS: VANCOMYCIN 1 GM PREMIX - 1 GM/200 ML BAG IVPB SCH ×2 (11:10→23:03)
--- NOTE | 2018-03-12 13:18 | PN ---
Progress Note, Physician Chief Complaint: C/O weakness Rt upper extremity - Current Medication List Current Medications: Active Medications Acetaminophen (Tylenol -) 325 mg PO Q4H PRN PRN Reason: PAIN SCALE 5-10 Last Admin: 03/12/18 11:19 Dose: 325 mg Apixaban (Eliquis -) 5 mg PO BID [facility] Last Admin: 03/12/18 09:18 Dose: 5 mg Diazepam (Valium -) 5 mg PO Q8H PRN PRN Reason: WITHDRAWAL(CONT SUBST) Docusate Sodium (Colace -) 100 mg PO BID [facility] Last Admin: 03/12/18 09:18 Dose: 100 mg Gabapentin (Neurontin -) 300 mg PO TID [facility] Last Admin: 03/12/18 05:41 Dose: 300 mg Heparin Sodium (Porcine) (Heparin -) 1,000 unit IVPUSH PRN PRN PRN Reason: Heparin Heparin Sodium (Porcine) (Heparin -) 5,000 unit IVPUSH PRN PRN PRN Reason: Heparin Vancomycin HCl (Vancomycin 1 Gm Premix -) 1 gm in 200 mls @ 133.333 mls/hr IVPB Q12H [facility]; Protocol Last Admin: 03/12/18 11:10 Dose: 133.333 mls/hr Piperacillin Sod/Tazobactam (Sod 3.375 gm/ Dextrose) 50 mls @ 100 mls/hr IVPB Q8H-IV [facility]; Protocol Last Admin: 03/12/18 09:18 Dose: 100 mls/hr Metoprolol Succinate (Toprol Xl -) 50 mg PO BID [facility] Last Admin: 03/12/18 09:18 Dose: 50 mg Metoprolol Tartrate (Lopressor Injection -) 5 mg IVPUSH Q6H PRN PRN Reason: HR >120 Oxycodone HCl (Roxicodone -) 5 mg PO Q4H PRN PRN Reason: PAIN SCALE 5-10 Last Admin: 03/12/18 11:19 Dose: 5 mg Pantoprazole Sodium (Protonix -) 20 mg PO BID [facility] Last Admin: 03/12/18 09:18 Dose: 20 mg Polyethylene Glycol (Miralax (For Daily Use) -) 17 gm PO DAILY [facility] Last Admin: 03/12/18 09:18 Dose: Not Given Thiamine HCl (Vitamin B1 -) 100 mg PO DAILY [facility] Last Admin: 03/12/18 09:18 Dose: 100 mg - Objective Vital Signs: Vital Signs Temperature 98.6 F 03/12/18 09:00 Pulse Rate 92 H 03/12/18 09:00 Respiratory Rate 18 03/12/18 09:00 Blood Pressure 128/84 03/12/18 09:00 O2 Sat by Pulse Oximetry (%) 99 03/12/18 09:00 Constitutional: Yes: Mild Distress Eyes: Yes: WNL HENT: Yes: WNL Neck: Yes: WNL Cardiovascular: Yes: Regular Rate and Rhythm Respiratory: Yes: WNL Gastrointestinal: Yes: Normal Bowel Sounds Edema: No Peripheral Pulses WNL: Yes Neurological: Yes: Alert, Weakness Labs: CBC, BMP 03/12/18 05:30 03/11/18 06:10 INR, PTT INR 1.59 (0.83-1.09) H 03/09/18 01:10 Assessment/Plan PT evaluation
[2018-03-13] MEDS ORDERED: PIPERACILLIN/TAZOBACTAM 3.375 GM VIAL IVPB ONE ×2 (00:38→09:44)
[2018-03-13] MEDS ORDERED: DEXTROSE 5%-WATER - 50 ML IVPB ONE ×2 (00:39→09:45)
[2018-03-13] MEDS: oxyCODONE HCL 5 MG TABLET PO PRN ×4 (00:43→20:23)
[2018-03-13] MEDS: ACETAMINOPHEN 325 MG TABLET (FP) PO PRN ×4 (00:44→20:24)
[2018-03-13] MEDS: PIPERACILLIN/TAZOB 3.375 GM 3.375 GM in DEXTROSE 5%-WATER - 50 ML IVPB SCH ×4 (01:14→18:05)
[2018-03-13] MEDS: GABAPENTIN 300 MG CAPSULE (FP) PO SCH ×3 (06:17→21:30)
[2018-03-13 06:32] LABS: HEMATOCRIT 28.6 % (35.4-49); HEMOGLOBIN 9.5 GM/dL (11.7-16.9); MCH 27.7 pg (25.7-33.7); MCHC 33.1 g/dl (32.0-35.9); MEAN CELL VOLUME 83.6 fl (80-96); MEAN PLT VOLUME 8.3 fl (7.5-11.1); PLATELET COUNT 443 K/MM3 (134-434); RBC 3.42 M/mm3 (4.00-5.60); RDW 18.3 % (11.9-15.9); WHITE BLOOD COUNT 15.6 K/mm3 (4.0-10.0)
--- NOTE | 2018-03-13 09:44 | PN ---
Progress Note, Physician Chief Complaint: Pain persists History of Present Illness: EKG in NSR on Elaquis - Current Medication List Current Medications: Active Medications Acetaminophen (Tylenol -) 325 mg PO Q4H PRN PRN Reason: PAIN SCALE 5-10 Last Admin: 03/13/18 06:16 Dose: 325 mg Apixaban (Eliquis -) 5 mg PO BID [facility] Last Admin: 03/12/18 23:06 Dose: 5 mg Diazepam (Valium -) 5 mg PO Q8H PRN PRN Reason: WITHDRAWAL(CONT SUBST) Docusate Sodium (Colace -) 100 mg PO BID [facility] Last Admin: 03/12/18 23:06 Dose: Not Given Gabapentin (Neurontin -) 300 mg PO TID [facility] Last Admin: 03/13/18 06:17 Dose: 300 mg Heparin Sodium (Porcine) (Heparin -) 1,000 unit IVPUSH PRN PRN PRN Reason: Heparin Heparin Sodium (Porcine) (Heparin -) 5,000 unit IVPUSH PRN PRN PRN Reason: Heparin Vancomycin HCl (Vancomycin 1 Gm Premix -) 1 gm in 200 mls @ 133.333 mls/hr IVPB Q12H [facility]; Protocol Last Admin: 03/12/18 23:03 Dose: 133.333 mls/hr Piperacillin Sod/Tazobactam (Sod 3.375 gm/ Dextrose) 50 mls @ 100 mls/hr IVPB Q8H-IV [facility]; Protocol Last Admin: 03/13/18 01:14 Dose: 100 mls/hr Metoprolol Succinate (Toprol Xl -) 50 mg PO BID [facility] Last Admin: 03/12/18 23:06 Dose: 50 mg Metoprolol Tartrate (Lopressor Injection -) 5 mg IVPUSH Q6H PRN PRN Reason: HR >120 Oxycodone HCl (Roxicodone -) 5 mg PO Q4H PRN PRN Reason: PAIN SCALE 5-10 Last Admin: 03/13/18 06:16 Dose: 5 mg Pantoprazole Sodium (Protonix -) 20 mg PO BID [facility] Last Admin: 03/12/18 23:06 Dose: 20 mg Polyethylene Glycol (Miralax (For Daily Use) -) 17 gm PO DAILY [facility] Last Admin: 03/12/18 09:18 Dose: Not Given Thiamine HCl (Vitamin B1 -) 100 mg PO DAILY [facility] Last Admin: 03/12/18 09:18 Dose: 100 mg - Objective Vital Signs: Vital Signs Temperature 99.2 F 03/13/18 06:00 Pulse Rate 90 03/13/18 06:00 Respiratory Rate 20 03/13/18 06:00 Blood Pressure 124/76 03/13/18 06:00 O2 Sat by Pulse Oximetry (%) 97 03/12/18 21:00 Constitutional: Yes: Mild Distress Eyes: Yes: WNL HENT: Yes: WNL Neck: Yes: WNL Cardiovascular: Yes: WNL Respiratory: Yes: WNL Gastrointestinal: Yes: Normal Bowel Sounds ...Rectal Exam: Yes: Deferred Genitourinary: Yes: WNL Musculoskeletal: Yes: Muscle Pain Edema: No Peripheral Pulses WNL: Yes Neurological: Yes: Alert Psychiatric: Yes: Alert Labs: CBC, BMP 03/13/18 05:30 03/11/18 06:10 INR, PTT INR 1.59 (0.83-1.09) H 03/09/18 01:10 Assessment/Plan Transfer to regular floor
[2018-03-13] MEDS: PANTOPRAZOLE 20 MG TABLET (FP) PO SCH ×2 (10:22→21:30)
[2018-03-13] MEDS: APIXABAN 5 MG TABLET PO SCH ×2 (10:22→21:30)
[2018-03-13] MEDS: THIAMINE HCL 100 MG TABLET (FP) PO SCH (10:22)
[2018-03-13] MEDS: DOCUSATE SODIUM 100 MG CAPSULE (FP) PO SCH ×2 (10:22→21:21)
[2018-03-13] MEDS: POLYETHYLENE GLYCOL 3350 119 GM BTL PO SCH (10:24)
--- NOTE | 2018-03-13 10:33 | PN ---
Progress Note, Physician Chief Complaint: spine infection History of Present Illness: no palpitations, cp, sob. feet and knee hurts - Current Medication List Current Medications: Active Medications Acetaminophen (Tylenol -) 325 mg PO Q4H PRN PRN Reason: PAIN SCALE 5-10 Last Admin: 03/13/18 06:16 Dose: 325 mg Apixaban (Eliquis -) 5 mg PO BID [facility] Last Admin: 03/13/18 10:22 Dose: 5 mg Diazepam (Valium -) 5 mg PO Q8H PRN PRN Reason: WITHDRAWAL(CONT SUBST) Docusate Sodium (Colace -) 100 mg PO BID [facility] Last Admin: 03/13/18 10:22 Dose: 100 mg Gabapentin (Neurontin -) 300 mg PO TID [facility] Last Admin: 03/13/18 06:17 Dose: 300 mg Heparin Sodium (Porcine) (Heparin -) 1,000 unit IVPUSH PRN PRN PRN Reason: Heparin Heparin Sodium (Porcine) (Heparin -) 5,000 unit IVPUSH PRN PRN PRN Reason: Heparin Vancomycin HCl (Vancomycin 1 Gm Premix -) 1 gm in 200 mls @ 133.333 mls/hr IVPB Q12H [facility]; Protocol Last Admin: 03/12/18 23:03 Dose: 133.333 mls/hr Piperacillin Sod/Tazobactam (Sod 3.375 gm/ Dextrose) 50 mls @ 100 mls/hr IVPB Q8H-IV [facility]; Protocol Last Admin: 03/13/18 10:23 Dose: 100 mls/hr Metoprolol Succinate (Toprol Xl -) 50 mg PO BID [facility] Last Admin: 03/13/18 10:22 Dose: 50 mg Metoprolol Tartrate (Lopressor Injection -) 5 mg IVPUSH Q6H PRN PRN Reason: HR >120 Oxycodone HCl (Roxicodone -) 5 mg PO Q4H PRN PRN Reason: PAIN SCALE 5-10 Last Admin: 03/13/18 06:16 Dose: 5 mg Pantoprazole Sodium (Protonix -) 20 mg PO BID [facility] Last Admin: 03/13/18 10:22 Dose: 20 mg Polyethylene Glycol (Miralax (For Daily Use) -) 17 gm PO DAILY [facility] Last Admin: 03/13/18 10:24 Dose: Not Given Thiamine HCl (Vitamin B1 -) 100 mg PO DAILY [facility] Last Admin: 03/13/18 10:22 Dose: 100 mg - Objective Vital Signs: Vital Signs Temperature 99.2 F 03/13/18 06:00 Pulse Rate 90 03/13/18 06:00 Respiratory Rate 20 03/13/18 06:00 Blood Pressure 124/76 03/13/18 06:00 O2 Sat by Pulse Oximetry (%) 97 03/12/18 21:00 Constitutional: Yes: Well Nourished, No Distress, Calm Cardiovascular: Yes: Regular Rate and Rhythm, S1, S2. No: Gallop, Murmur Respiratory: Yes: Regular, CTA Bilaterally (anteriorly (back pain)). No: Accessory Muscle Use, Rales, Wheezes Extremities: No: Cold Edema: No Neurological: Yes: Alert, Oriented Psychiatric: No: Agitated Labs: CBC, BMP 03/13/18 05:30 03/11/18 06:10 INR, PTT INR 1.59 (0.83-1.09) H 03/09/18 01:10 Assessment/Plan ecg: sr, nl intervals, no ishcemic changes echo 03/2018: nl lv, rv tds, no sig valve path cxr: no chf a/p: 57 m htn here with low back pain. afib: -new onset afib with rvr, now back in sr -cont toprol 50 bid -echo unremarkable -tsh wnl -chadsvasc warrants AC--cont eliquis -d/c telemetry htn: -bp controlled -cont current meds back pain, vertebral osteo: -plans per NS and ID
--- NOTE | 2018-03-13 11:05 | PN ---
Progress Note, Physician History of Present Illness: PULMONARY ALERT,NO DISTRESS,-CP,+ MILD SOB WITH EXERTION,NOT AT REST - Current Medication List Current Medications: Active Medications Acetaminophen (Tylenol -) 325 mg PO Q4H PRN PRN Reason: PAIN SCALE 5-10 Last Admin: 03/13/18 06:16 Dose: 325 mg Apixaban (Eliquis -) 5 mg PO BID [facility] Last Admin: 03/13/18 10:22 Dose: 5 mg Diazepam (Valium -) 5 mg PO Q8H PRN PRN Reason: WITHDRAWAL(CONT SUBST) Docusate Sodium (Colace -) 100 mg PO BID [facility] Last Admin: 03/13/18 10:22 Dose: 100 mg Gabapentin (Neurontin -) 300 mg PO TID [facility] Last Admin: 03/13/18 06:17 Dose: 300 mg Heparin Sodium (Porcine) (Heparin -) 1,000 unit IVPUSH PRN PRN PRN Reason: Heparin Heparin Sodium (Porcine) (Heparin -) 5,000 unit IVPUSH PRN PRN PRN Reason: Heparin Vancomycin HCl (Vancomycin 1 Gm Premix -) 1 gm in 200 mls @ 133.333 mls/hr IVPB Q12H [facility]; Protocol Last Admin: 03/12/18 23:03 Dose: 133.333 mls/hr Piperacillin Sod/Tazobactam (Sod 3.375 gm/ Dextrose) 50 mls @ 100 mls/hr IVPB Q8H-IV [facility]; Protocol Last Admin: 03/13/18 10:23 Dose: 100 mls/hr Metoprolol Succinate (Toprol Xl -) 50 mg PO BID [facility] Last Admin: 03/13/18 10:22 Dose: 50 mg Metoprolol Tartrate (Lopressor Injection -) 5 mg IVPUSH Q6H PRN PRN Reason: HR >120 Oxycodone HCl (Roxicodone -) 5 mg PO Q4H PRN PRN Reason: PAIN SCALE 5-10 Last Admin: 03/13/18 06:16 Dose: 5 mg Pantoprazole Sodium (Protonix -) 20 mg PO BID [facility] Last Admin: 03/13/18 10:22 Dose: 20 mg Polyethylene Glycol (Miralax (For Daily Use) -) 17 gm PO DAILY [facility] Last Admin: 03/13/18 10:24 Dose: Not Given Thiamine HCl (Vitamin B1 -) 100 mg PO DAILY [facility] Last Admin: 03/13/18 10:22 Dose: 100 mg - Objective Vital Signs: Vital Signs Temperature 99.2 F 03/13/18 06:00 Pulse Rate 90 03/13/18 06:00 Respiratory Rate 20 03/13/18 06:00 Blood Pressure 124/76 03/13/18 06:00 O2 Sat by Pulse Oximetry (%) 97 03/12/18 21:00 Constitutional: Yes: Well Nourished, Calm, Obese Eyes: Yes: WNL HENT: Yes: WNL Neck: Yes: WNL Cardiovascular: Yes: Regular Rate and Rhythm, S1, S2 Respiratory: Yes: Diminished Gastrointestinal: Yes: Normal Bowel Sounds, Soft Extremities: Yes: WNL Edema: Yes Labs: CBC, BMP 03/13/18 05:30 03/11/18 06:10 INR, PTT INR 1.59 (0.83-1.09) H 03/09/18 01:10 Problem List - Problems (1) Back pain Code(s): M54.9 - DORSALGIA, UNSPECIFIED Qualifiers: Back pain location: low back pain Chronicity: unspecified Back pain laterality: right Sciatica presence: unspecified whether sciatica present Qualified Code(s): M54.5 - Low back pain (2) HTN (hypertension) Code(s): I10 - ESSENTIAL (PRIMARY) HYPERTENSION (3) New onset a-fib Code(s): I48.91 - UNSPECIFIED ATRIAL FIBRILLATION (4) Chronic alcoholism Code(s): F10.20 - ALCOHOL DEPENDENCE, UNCOMPLICATED Qualifiers: Substance use status: alcohol-induced persisting amnestic disorder Qualified Code(s): F10.26 - 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
[2018-03-13] MEDS: VANCOMYCIN 1 GM PREMIX - 1 GM/200 ML BAG IVPB SCH ×2 (12:29→23:38)
--- NOTE | 2018-03-13 12:42 | PN ---
Progress Note, Physician History of Present Illness: Supine in bed No acute distress at rest Was able to sit in bed and dangle legs but unable to stand C/O low back pain, LE weakness Afebrile Aspirate cultures no growth to date - Current Medication List Current Medications: Active Medications Acetaminophen (Tylenol -) 325 mg PO Q4H PRN PRN Reason: PAIN SCALE 5-10 Last Admin: 03/13/18 12:30 Dose: 325 mg Apixaban (Eliquis -) 5 mg PO BID [facility] Last Admin: 03/13/18 10:22 Dose: 5 mg Diazepam (Valium -) 5 mg PO Q8H PRN PRN Reason: WITHDRAWAL(CONT SUBST) Docusate Sodium (Colace -) 100 mg PO BID [facility] Last Admin: 03/13/18 10:22 Dose: 100 mg Gabapentin (Neurontin -) 300 mg PO TID [facility] Last Admin: 03/13/18 06:17 Dose: 300 mg Heparin Sodium (Porcine) (Heparin -) 1,000 unit IVPUSH PRN PRN PRN Reason: Heparin Heparin Sodium (Porcine) (Heparin -) 5,000 unit IVPUSH PRN PRN PRN Reason: Heparin Vancomycin HCl (Vancomycin 1 Gm Premix -) 1 gm in 200 mls @ 133.333 mls/hr IVPB Q12H [facility]; Protocol Last Admin: 03/13/18 12:29 Dose: 133.333 mls/hr Piperacillin Sod/Tazobactam (Sod 3.375 gm/ Dextrose) 50 mls @ 100 mls/hr IVPB Q8H-IV [facility]; Protocol Last Admin: 03/13/18 10:23 Dose: 100 mls/hr Metoprolol Succinate (Toprol Xl -) 50 mg PO BID [facility] Last Admin: 03/13/18 10:22 Dose: 50 mg Metoprolol Tartrate (Lopressor Injection -) 5 mg IVPUSH Q6H PRN PRN Reason: HR >120 Oxycodone HCl (Roxicodone -) 5 mg PO Q4H PRN PRN Reason: PAIN SCALE 5-10 Last Admin: 03/13/18 12:29 Dose: 5 mg Pantoprazole Sodium (Protonix -) 20 mg PO BID [facility] Last Admin: 03/13/18 10:22 Dose: 20 mg Polyethylene Glycol (Miralax (For Daily Use) -) 17 gm PO DAILY [facility] Last Admin: 03/13/18 10:24 Dose: Not Given Thiamine HCl (Vitamin B1 -) 100 mg PO DAILY [facility] Last Admin: 03/13/18 10:22 Dose: 100 mg - Objective Vital Signs: Vital Signs Temperature 99.1 F 03/13/18 11:00 Pulse Rate 96 H 03/13/18 11:00 Respiratory Rate 20 03/13/18 11:00 Blood Pressure 121/73 03/13/18 11:00 O2 Sat by Pulse Oximetry (%) 97 03/13/18 09:00 Constitutional: Yes: No Distress Eyes: Yes: Conjunctiva Clear Cardiovascular: Yes: Regular Rate and Rhythm, S1, S2 Respiratory: Yes: CTA Bilaterally Gastrointestinal: Yes: Normal Bowel Sounds, Soft. No: Tenderness Edema: Yes Edema: LLE: 2+, RLE: 2+ Labs: CBC, BMP 03/13/18 05:30 03/11/18 06:10 INR, PTT INR 1.59 (0.83-1.09) H 03/09/18 01:10 Assessment/Plan ? Recurrent vertebral osteomyelitis S/P New onset Afib Continue empiric vancomycin/ unasyn Repeat ESR CRP PICC for outpatient antibiotic therapy
[2018-03-14] MEDS ORDERED: PIPERACILLIN/TAZOBACTAM 3.375 GM VIAL IVPB ONE ×3 (01:23→17:02)
[2018-03-14] MEDS ORDERED: DEXTROSE 5%-WATER - 50 ML IVPB ONE ×3 (01:24→17:03)
[2018-03-14] MEDS: oxyCODONE HCL 5 MG TABLET PO PRN ×3 (01:58→21:45)
[2018-03-14] MEDS: ACETAMINOPHEN 325 MG TABLET (FP) PO PRN ×3 (01:59→21:46)
[2018-03-14] MEDS: PIPERACILLIN/TAZOB 3.375 GM 3.375 GM in DEXTROSE 5%-WATER - 50 ML IVPB SCH ×3 (02:03→17:17)
[2018-03-14] MEDS: GABAPENTIN 300 MG CAPSULE (FP) PO SCH ×3 (06:17→21:45)
[2018-03-14 06:41] LABS: HEMATOCRIT 25.6 % (35.4-49); HEMOGLOBIN 8.5 GM/dL (11.7-16.9); MCH 27.8 pg (25.7-33.7); MCHC 33.3 g/dl (32.0-35.9); MEAN CELL VOLUME 83.5 fl (80-96); MEAN PLT VOLUME 8.4 fl (7.5-11.1); PLATELET COUNT 452 K/MM3 (134-434); RBC 3.07 M/mm3 (4.00-5.60); RDW 18.6 % (11.9-15.9)
[2018-03-14] MEDS: DOCUSATE SODIUM 100 MG CAPSULE (FP) PO SCH (09:18)
[2018-03-14] MEDS: POLYETHYLENE GLYCOL 3350 119 GM BTL PO SCH ×2 (09:18→21:45)
[2018-03-14] MEDS: PANTOPRAZOLE 20 MG TABLET (FP) PO SCH ×2 (09:19→21:45)
[2018-03-14] MEDS: THIAMINE HCL 100 MG TABLET (FP) PO SCH (09:19)
--- NOTE | 2018-03-14 09:21 | PN ---
Progress Note, Physician Chief Complaint: Had rectal bleeding last night History of Present Illness: Will stop elaquis - Current Medication List Current Medications: Active Medications Acetaminophen (Tylenol -) 325 mg PO Q4H PRN PRN Reason: PAIN SCALE 5-10 Last Admin: 03/14/18 06:16 Dose: 325 mg Diazepam (Valium -) 5 mg PO Q8H PRN PRN Reason: WITHDRAWAL(CONT SUBST) Docusate Sodium (Colace -) 100 mg PO BID [facility] Last Admin: 03/13/18 21:21 Dose: Not Given Gabapentin (Neurontin -) 300 mg PO TID [facility] Last Admin: 03/14/18 06:17 Dose: 300 mg Heparin Sodium (Porcine) (Heparin -) 1,000 unit IVPUSH PRN PRN PRN Reason: Heparin Heparin Sodium (Porcine) (Heparin -) 5,000 unit IVPUSH PRN PRN PRN Reason: Heparin Vancomycin HCl (Vancomycin 1 Gm Premix -) 1 gm in 200 mls @ 133.333 mls/hr IVPB Q12H [facility]; Protocol Last Admin: 03/13/18 23:38 Dose: 133.333 mls/hr Piperacillin Sod/Tazobactam (Sod 3.375 gm/ Dextrose) 50 mls @ 100 mls/hr IVPB Q8H-IV [facility]; Protocol Last Admin: 03/14/18 02:03 Dose: 100 mls/hr Metoprolol Succinate (Toprol Xl -) 50 mg PO BID [facility] Last Admin: 03/13/18 21:30 Dose: 50 mg Metoprolol Tartrate (Lopressor Injection -) 5 mg IVPUSH Q6H PRN PRN Reason: HR >120 Oxycodone HCl (Roxicodone -) 5 mg PO Q4H PRN PRN Reason: PAIN SCALE 5-10 Last Admin: 03/14/18 06:16 Dose: 5 mg Pantoprazole Sodium (Protonix -) 20 mg PO BID [facility] Last Admin: 03/13/18 21:30 Dose: 20 mg Polyethylene Glycol (Miralax (For Daily Use) -) 17 gm PO DAILY [facility] Last Admin: 03/13/18 10:24 Dose: Not Given Thiamine HCl (Vitamin B1 -) 100 mg PO DAILY [facility] Last Admin: 03/13/18 10:22 Dose: 100 mg - Objective Vital Signs: Vital Signs Temperature 99.3 F 03/14/18 06:00 Pulse Rate 84 03/14/18 06:00 Respiratory Rate 17 03/14/18 06:00 Blood Pressure 126/79 03/14/18 06:00 O2 Sat by Pulse Oximetry (%) 97 03/13/18 21:00 Constitutional: Yes: No Distress Eyes: Yes: WNL HENT: Yes: WNL Neck: Yes: Supple Cardiovascular: Yes: Regular Rate and Rhythm Respiratory: Yes: Regular Gastrointestinal: Yes: Normal Bowel Sounds ...Rectal Exam: Yes: Guaiac Positive Genitourinary: Yes: WNL Edema: No Neurological: Yes: Alert Labs: CBC, BMP 03/14/18 05:30 03/11/18 06:10 INR, PTT INR 1.59 (0.83-1.09) H 03/09/18 01:10 Assessment/Plan GI consult Dr Guillermo
--- NOTE | 2018-03-14 10:15 | PN ---
Progress Note (short form) - Note Progress Note: s: no palpitations, cp, sob. bloody bm x 2 this morning, eliquis held Current Medications Acetaminophen (Tylenol -) 325 mg PO Q4H PRN PRN Reason: PAIN SCALE 5-10 Last Admin: 03/14/18 06:16 Dose: 325 mg Diazepam (Valium -) 5 mg PO Q8H PRN PRN Reason: WITHDRAWAL(CONT SUBST) Docusate Sodium (Colace -) 100 mg PO BID [facility] Last Admin: 03/14/18 09:18 Dose: Not Given Gabapentin (Neurontin -) 300 mg PO TID [facility] Last Admin: 03/14/18 06:17 Dose: 300 mg Heparin Sodium (Porcine) (Heparin -) 1,000 unit IVPUSH PRN PRN PRN Reason: Heparin Heparin Sodium (Porcine) (Heparin -) 5,000 unit IVPUSH PRN PRN PRN Reason: Heparin Vancomycin HCl (Vancomycin 1 Gm Premix -) 1 gm in 200 mls @ 133.333 mls/hr IVPB Q12H [facility]; Protocol Last Admin: 18 23:38 Dose: 133.333 mls/hr Piperacillin Sod/Tazobactam (Sod 3.375 gm/ Dextrose) 50 mls @ 100 mls/hr IVPB Q8H-IV [facility]; Protocol Last Admin: 03/14/18 09:20 Dose: 100 mls/hr Metoprolol Succinate (Toprol Xl -) 50 mg PO BID [facility] Last Admin: 03/14/18 09:18 Dose: 50 mg Metoprolol Tartrate (Lopressor Injection -) 5 mg IVPUSH Q6H PRN PRN Reason: HR >120 Pantoprazole Sodium (Protonix -) 20 mg PO BID [facility] Last Admin: 03/14/18 09:19 Dose: 20 mg Polyethylene Glycol (Miralax (For Daily Use) -) 17 gm PO DAILY [facility] Last Admin: 03/14/18 09:18 Dose: Not Given Thiamine HCl (Vitamin B1 -) 100 mg PO DAILY [facility] Last Admin: 03/14/18 09:19 Dose: 100 mg - Objective Vital Signs Period Temp Pulse Resp BP Sys/Beasley Pulse Ox Last 24 Hr 98.2 F-99.3 F 84-99 17-20 104-141/59-85 97 Constitutional: Yes: Well Nourished, No Distress, Calm Cardiovascular: Yes: Regular Rate and Rhythm, S1, S2. No: Gallop, Murmur Respiratory: Yes: Regular, CTA Bilaterally (anteriorly (back pain)). No: Accessory Muscle Use, Rales, Wheezes Extremities: No: Cold Edema: No Neurological: Yes: Alert, Oriented Psychiatric: No: Agitated Assessment/Plan ecg: sr, nl intervals, no ishcemic changes echo 03/2018: nl lv, rv tds, no sig valve path cxr: no chf a/p: 57 m htn here with low back pain. GI bleeding - stable h/h this morning - eliquis held pending GI evaluation afib: -new onset afib with rvr, now back in sr -cont toprol 50 bid -echo unremarkable -tsh wnl -chadsvasc warrants AC, however holding eliquis in setting of bloody bm's, pending GI evaluation htn: -bp controlled -cont current meds back pain, vertebral osteo: -plans per NS and ID
[2018-03-14] MEDS: VANCOMYCIN 1 GM PREMIX - 1 GM/200 ML BAG IVPB SCH ×2 (11:04→22:03)
--- NOTE | 2018-03-14 11:22 | PN ---
Progress Note, Physician History of Present Illness: PULMONARY ALERT,FEELING BETTER,NO DISTRESS,-SOB,-CP - Current Medication List Current Medications: Active Medications Acetaminophen (Tylenol -) 325 mg PO Q4H PRN PRN Reason: PAIN SCALE 5-10 Last Admin: 03/14/18 06:16 Dose: 325 mg Diazepam (Valium -) 5 mg PO Q8H PRN PRN Reason: WITHDRAWAL(CONT SUBST) Docusate Sodium (Colace -) 100 mg PO BID [facility] Last Admin: 03/14/18 09:18 Dose: Not Given Gabapentin (Neurontin -) 300 mg PO TID [facility] Last Admin: 03/14/18 06:17 Dose: 300 mg Heparin Sodium (Porcine) (Heparin -) 1,000 unit IVPUSH PRN PRN PRN Reason: Heparin Heparin Sodium (Porcine) (Heparin -) 5,000 unit IVPUSH PRN PRN PRN Reason: Heparin Vancomycin HCl (Vancomycin 1 Gm Premix -) 1 gm in 200 mls @ 133.333 mls/hr IVPB Q12H [facility]; Protocol Last Admin: 03/14/18 11:04 Dose: 133.333 mls/hr Piperacillin Sod/Tazobactam (Sod 3.375 gm/ Dextrose) 50 mls @ 100 mls/hr IVPB Q8H-IV [facility]; Protocol Last Admin: 03/14/18 09:20 Dose: 100 mls/hr Metoprolol Succinate (Toprol Xl -) 50 mg PO BID [facility] Last Admin: 03/14/18 09:18 Dose: 50 mg Metoprolol Tartrate (Lopressor Injection -) 5 mg IVPUSH Q6H PRN PRN Reason: HR >120 Pantoprazole Sodium (Protonix -) 20 mg PO BID [facility] Last Admin: 03/14/18 09:19 Dose: 20 mg Polyethylene Glycol (Miralax (For Daily Use) -) 17 gm PO DAILY [facility] Last Admin: 03/14/18 09:18 Dose: Not Given Thiamine HCl (Vitamin B1 -) 100 mg PO DAILY [facility] Last Admin: 03/14/18 09:19 Dose: 100 mg - Objective Vital Signs: Vital Signs Temperature 99.0 F 03/14/18 10:00 Pulse Rate 83 03/14/18 10:00 Respiratory Rate 18 03/14/18 10:00 Blood Pressure 105/68 03/14/18 10:00 O2 Sat by Pulse Oximetry (%) 97 03/14/18 09:00 Constitutional: Yes: Calm, Obese Eyes: Yes: WNL HENT: Yes: WNL Neck: Yes: WNL Cardiovascular: Yes: Regular Rate and Rhythm, S1, S2 Respiratory: Yes: Diminished Gastrointestinal: Yes: Normal Bowel Sounds, Soft Extremities: Yes: WNL Edema: Yes Labs: CBC, BMP 03/14/18 05:30 Problem List - Problems (1) Back pain Code(s): M54.9 - DORSALGIA, UNSPECIFIED Qualifiers: Back pain location: low back pain Chronicity: unspecified Back pain laterality: right Sciatica presence: unspecified whether sciatica present Qualified Code(s): M54.5 - Low back pain (2) HTN (hypertension) Code(s): I10 - ESSENTIAL (PRIMARY) HYPERTENSION (3) New onset a-fib Code(s): I48.91 - UNSPECIFIED ATRIAL FIBRILLATION (4) Chronic alcoholism Code(s): F10.20 - ALCOHOL DEPENDENCE, UNCOMPLICATED Qualifiers: Substance use status: alcohol-induced persisting amnestic disorder Qualified Code(s): F10.26 - 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
[2018-03-14 16:11] LABS: HEMATOCRIT 26.5 % (35.4-49); HEMOGLOBIN 8.7 GM/dL (11.7-16.9); MCH 27.3 pg (25.7-33.7); MCHC 32.8 g/dl (32.0-35.9); MEAN CELL VOLUME 83.1 fl (80-96); MEAN PLT VOLUME 8.4 fl (7.5-11.1); PLATELET COUNT 493 K/MM3 (134-434); RBC 3.19 M/mm3 (4.00-5.60); RDW 18.3 % (11.9-15.9); WHITE BLOOD COUNT 19.1 K/mm3 (4.0-10.0)
--- NOTE | 2018-03-14 17:28 | CON.GI ---
Consult Consult Specialty:: Gastroenterology Referred by:: Dr. Jaskaran Aguayo Reason for Consultation:: Rectal bleeding - History of Present Illness Chief Complaint: Constipation leading to rectal bleeding History of Present Illness: 57M is admitted for severe low back that that developed after a long bus ride to [place] to bury his brother. He failed to respond to an injection given by Dr Aguayo. He developed chills and fevers which prompted this hospitalization. He has developed bilateral lag weakness to the degree that he cannot stand up and even turn in bed. He tells me that he is also developing RUE weakness but this is associated with a shoulder pain. He had a lumbar disc aspiration by Dr. Carlitos Conklin that reveals leukocytes but the culture was negative. He had spinal osteomyelitis in the past and a recurrence is suspected. He has been constipated since the back pain began and developed hematochezia while he strained to defecate two days ago, yesterday and again this morning. He denies any perianal pain. He was referred for colonoscopy with Dr. Jiménez recently but it never was done due to insurance issues. He denies any FH of colon cancer. He generally moves his bowel daily. While here he developed atrial fibrillation for which Eliquis was given but has been held. He denies any h/o GI diseases and liver diseases despite consuming about a pint of vodka daily. He has never had an EGD. His alkaline phosphatase and bilirubin are elevated. CT reveals gallstones and a left adrenal adenoma. - History Source History Provided By: Patient Limitations to Obtaining History: No Limitations - Past Medical History Cardio/Vascular: Yes: AFIB, HTN, Hyperlipdemia Gastrointestinal: Yes: GERD, Pancreatitis (alcoholic x 1 episode) Hepatobiliary: Yes: Cholelithiasis, Other (alcoholic liver disease) Renal/: Yes: BPH Musculoskeletal: Yes: Chronic low back pain (vertebral osteomyelitis and paraspinal abscess 2010) Dermatology: Yes: Other (rhinophyma ) - Past Surgical History Past Surgical History: Yes: None - Alcohol/Substance Use Hx Alcohol Use: Yes (pint of vodka daily) History of Substance Use: reports: Cocaine (snorted cocaine in the past) - Smoking History Smoking history: Never smoked Have you smoked in the past 12 months: No - Social History Usual Living Arrangement: Alone ADL: Independent 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 11/13/17 Family Disease History - Family Disease History Family Disease History: CA: Brother ( prostate cancer), Other: Father ( 55 alcoholic cirrhosis), Mother ( 37 cerebral aneurysm) Review of Systems - Review of Systems Constitutional: reports: Chills, Fever Eyes: reports: No Symptoms HENT: reports: No Symptoms Neck: reports: No Symptoms Cardiovascular: reports: No Symptoms Respiratory: reports: No Symptoms Gastrointestinal: reports: Constipation, Rectal Bleeding Genitourinary: reports: No Symptoms Musculoskeletal: reports: Back Pain, Extremity Pain, Muscle Weakness Neurological: reports: Weakness (both lower extremities) Psychiatric: reports: No Symptoms Physical Exam-GI Vital Signs: Vital Signs Temperature 98.4 F 03/14/18 14:00 Pulse Rate 102 H 03/14/18 14:00 Respiratory Rate 18 03/14/18 10:00 Blood Pressure 120/70 03/14/18 14:00 O2 Sat by Pulse Oximetry (%) 97 03/14/18 09:00 CBC,CMP WBC 19.1 K/mm3 (4.0-10.0) H 03/14/18 15:45 RBC 3.19 M/mm3 (4.00-5.60) L 03/14/18 15:45 Hgb 8.7 GM/dL (11.7-16.9) L 03/14/18 15:45 Hct 26.5 % (35.4-49) L 03/14/18 15:45 MCV 83.1 fl (80-96) 03/14/18 15:45 MCH 27.3 pg (25.7-33.7) 03/14/18 15:45 MCHC 32.8 g/dl (32.0-35.9) 03/14/18 15:45 RDW 18.3 % (11.9-15.9) H 03/14/18 15:45 Plt Count 493 K/MM3 (134-434) H 03/14/18 15:45 MPV 8.4 fl (7.5-11.1) 03/14/18 15:45 Absolute Neuts (auto) 13.7 # 03/11/18 06:10 Neutrophils % 77.4 % (42.8-82.8) 03/11/18 06:10 Neutrophils % (Manual) 77.6 % (42.8-82.8) 03/11/18 06:10 Band Neutrophils % 0.0 % 03/11/18 06:10 Lymphocytes % 11.8 % (8-40) 03/11/18 06:10 Lymphocytes % (Manual) 10.7 % (8-40) 03/11/18 06:10 Monocytes % 10.0 % (3.8-10.2) 03/11/18 06:10 Monocytes % (Manual) 10 % (3.8-10.2) 03/11/18 06:10 Eosinophils % 0.3 % (0-4.5) 03/11/18 06:10 Eosinophils % (Manual) 0.0 % (0-4.5) 03/11/18 06:10 Basophils % 0.5 % (0-2.0) 03/11/18 06:10 Basophils % (Manual) 1.0 % (0-2.0) 03/11/18 06:10 Myelocytes % (Man) 0 % (0-2) 03/11/18 06:10 Promyelocytes % (Man) 0 % (0-2) 03/11/18 06:10 Blast Cells % (Manual) 0 % (0-0) 03/11/18 06:10 Nucleated RBC % 0 % (0-0) 03/11/18 06:10 Metamyelocytes 0 % (0-2) 03/11/18 06:10 Hypochromia 0 03/11/18 06:10 Platelet Estimate Normal 03/11/18 06:10 Polychromasia 1+ 03/11/18 06:10 Poikilocytosis 0 03/11/18 06:10 Anisocytosis 1+ 03/11/18 06:10 Microcytosis 1+ 03/11/18 06:10 Macrocytosis 1+ 08/11/18 06:10 ESR 119 mm/hr (0-20) H 03/14/18 05:30 Sodium 135 mmol/L (136-145) L 03/11/18 06:10 Potassium 4.6 mmol/L (3.5-5.1) 03/11/18 06:10 Chloride 101 mmol/L (98-107) 03/11/18 06:10 Carbon Dioxide 25 mmol/L (21-32) 03/11/18 06:10 Anion Gap 9 (8-16) 03/11/18 06:10 BUN 20 mg/dL (7-18) H 03/11/18 06:10 Creatinine 1.0 mg/dL (0.7-1.3) 03/11/18 06:10 Creat Clearance w eGFR > 60 (>60) 03/11/18 06:10 POC Glucometer 106 UNITS (80-120) 03/14/18 11:07 Random Glucose 88 mg/dL (74-106) 03/11/18 06:10 Uric Acid 6.8 mg/dL (2.6-7.2) 03/06/18 06:00 Calcium 10.6 mg/dL (8.5-10.1) H 03/11/18 06:10 Phosphorus 4.0 mg/dL (2.5-4.9) D 03/11/18 06:10 Magnesium 2.0 mg/dL (1.8-2.4) 03/11/18 06:10 Total Bilirubin 1.8 mg/dL (0.2-1.0) H 03/11/18 06:10 AST 19 U/L (15-37) 03/11/18 06:10 ALT 19 U/L (12-78) 03/11/18 06:10 Alkaline Phosphatase 401 U/L (45-117) H D 03/11/18 06:10 Creatine Kinase 48 IU/L (39-308) 03/09/18 01:10 Troponin I < 0.02 ng/ml (0.00-0.05) 03/09/18 01:10 C-Reactive Protein 14.5 MG/DL (0.00-0.3) H 03/14/18 05:30 Total Protein 7.9 g/dl (6.4-8.2) 03/11/18 06:10 Albumin 2.0 g/dl (3.4-5.0) L 03/11/18 06:10 Lipase 72 U/L (73-393) L 03/01/18 17:11 Prostate Specific Ag 0.70 ng/ml (0.0-4.0) 03/03/18 06:00 TSH 0.69 uIU/ml (0.358-3.74) D 03/09/18 01:10 Current Medications Generic Name Dose Route Start Last Admin Trade Name Freq PRN Reason Stop Dose Admin Acetaminophen 325 mg 03/11/18 09:47 03/14/18 06:16 Tylenol - PO 325 mg Q4H PRN Administration PAIN SCALE 5-10 Docusate Sodium 100 mg 03/11/18 10:00 03/14/18 09:18 Colace - PO Not Given BID ELLYN Gabapentin 300 mg 03/11/18 14:00 03/14/18 14:47 Neurontin - PO 300 mg TID ELLYN Administration Heparin Sodium (Porcine) 1,000 unit 03/11/18 09:47 Heparin - IVPUSH PRN PRN Heparin Heparin Sodium (Porcine) 5,000 unit 03/11/18 09:47 Heparin - IVPUSH PRN PRN Heparin Vancomycin HCl 1 gm in 200 mls @ 133.333 mls/hr 03/11/18 11:00 03/14/18 11:04 Vancomycin 1 Gm Premix - IVPB 133.333 mls/hr Q12H ELLYN Administration Protocol Piperacillin Sod/Tazobactam 50 mls @ 100 mls/hr 03/11/18 10:00 03/14/18 17:17 Sod 3.375 gm/ Dextrose IVPB 100 mls/hr Q8H-IV E[facility] Administration Protocol Metoprolol Succinate 50 mg 03/11/18 10:00 03/14/18 09:18 Toprol Xl - PO 50 mg BID ELLYN Administration Metoprolol Tartrate 5 mg 03/11/18 09:47 Lopressor Injection - IVPUSH Q6H PRN HR >120 Pantoprazole Sodium 20 mg 03/11/18 10:00 03/14/18 09:19 Protonix - PO 20 mg BID ELLYN Administration Polyethylene Glycol 17 gm 03/11/18 10:00 03/14/18 09:18 Miralax (For Daily Use) - PO Not Given DAILY [facility] Thiamine HCl 100 mg 03/11/18 10:00 03/14/18 09:19 Vitamin B1 - PO 100 mg DAILY ELLYN Administration Constitutional: Yes: Anxious Eyes: Yes: Conjunctiva Clear HENT: Yes: Normocephalic Neck: Yes: Trachea Midline Cardiovascular: Yes: Regular Rate and Rhythm Respiratory: Yes: CTA Bilaterally Gastrointestinal Inspection: Yes: Other (obese) ...Auscultate: Yes: Normoactive Bowel Sounds ...Palpate: Yes: Soft, Other (nontender) ...Rectal Exam: Yes: Guaiac Positive, Hemorrhoids/External, Sphincter Tone Poor , Other (2+ prostate) Musculoskeletal: Yes: Muscle Weakness (lower extremities and RUE) Neurological: Yes: Alert, Oriented Labs: CBC, BMP 03/14/18 15:45 03/11/18 06:10 INR, PTT INR 1.59 (0.83-1.09) H 03/09/18 01:10 Laboratory Tests 03/01/18 03/06/18 03/09/18 17:11 06:00 01:10 WBC Hgb Hct Plt Count Total Bilirubin 1.1 H 1.5 H 3.1 H AST 32 D 23 D 27 D ALT 31 28 27 Alkaline Phosphatase 514 H 484 H D 464 H Albumin Lipase 72 L 03/10/18 03/14/18 05:30 15:45 WBC 19.1 H Hgb 8.7 L Hct 26.5 L Plt Count 493 H Total Bilirubin AST ALT Alkaline Phosphatase Albumin 2.0 L Lipase Imaging - Results Cat Scan: Report Reviewed (Bettina Thakur Name: ABHINAV [facility] DEPARTMENT OF RADIOLOGY Phys: Siddharth Aguayo : 1960 Age: 57 Sex: M [facility] Acct: [id number] Loc: [id number] [facility] Exam Date: 03/12/18 Status: [place] [address] Unit Number: [id number] EXAM#: TYPE/EXAM: RESULT: [id number] CT/ABDOMEN CT WITHOUT CONTRAST HISTORY PROVIDED: High alkaline phosphatase , rule out malignancy. TECHNIQUE: Sequential axial images were obtained from the domes of the diaphragm through the aortic bifurcation following the administration of oral contrast material. The study is limited due to the patient's poor cooperation. The liver is normal in size and texture no intrahepatic masses present. There is no evidence of intra or extrahepatic ductal dilatation. The spleen, right adrenal gland and pancreas demonstrate no significant abnormalities. Small gallstones are identified within the gallbladder. There is a left adrenal nodule measuring 2.1 cm that most probably represents a benign adenoma. There is no evidence of hydronephrosis or acute renal abnormality. There is extensive perinephric stranding bilaterally. This suggests a prior inflammatory/infectious process. Clinical correlation is advised. There is no evidence of intra-abdominal or retroperitoneal lymphadenopathy or fluid collections. IMPRESSION: 1. Cholelithiasis. 2. Left adrenal nodule. 3. No acute pathology within the abdomen. Please see above discussion. 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 I have proposed rubber band ligation of hemorrhoids if this is deemed appropriate. I have also advised an EGD to exclude esophageal varices and alcoholic gastritis before resuming the Eliquis. I have also advised rubber band ligation of esophageal varices if they are found. I have informed Abhinav of the potential for such complications as as perforation and hemorrhage and of the need to do a rigorous bowel prep in the face of leg weakness and his spinal infection. Given the need to resume Eliquis the studies cannot be deferred. Abhinav has granted informed consents for both. Miralax will be initiated. I have scheduled the procedures for 05/17 to allow the Eliquis to wear off. Code(s): K62.5 - HEMORRHAGE OF ANUS AND RECTUM (2) Abnormal liver function tests Assessment/Plan: I believe that his transaminases and bilirubin reflect alcoholic liver disease but his alkaline phosphatase may partially bone in origin given spinal osteomyelitis. Given the gallstones an MRCP will be obtained to exclude a CBD stone. I have discussed the need to absolutely abstain from alcohol. 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 Code(s): D35.02 - BENIGN NEOPLASM OF LEFT ADRENAL GLAND (4) Hemorrhoids, external Code(s): K64.4 - RESIDUAL HEMORRHOIDAL SKIN TAGS (5) GERD (gastroesophageal reflux disease) Code(s): K21.9 - GASTRO-ESOPHAGEAL REFLUX DISEASE WITHOUT ESOPHAGITIS (6) Pancreatitis Code(s): K85.9 - ACUTE PANCREATITIS, UNSPECIFIED * DO NOT USE * Qualifiers: Chronicity: acute Pancreatitis type: alcohol induced Acute pancreatitis complication: unspecified Qualified Code(s): K85.20 - Alcohol induced acute pancreatitis without necrosis or infection (7) Chronic alcoholism Code(s): F10.20 - ALCOHOL DEPENDENCE, UNCOMPLICATED Qualifiers: Substance use status: unspecified alcohol-induced disorder Qualified Code(s ): F10.29 - Alcohol dependence with unspecified alcohol-induced disorder (8) Constipation Code(s): K59.00 - CONSTIPATION, UNSPECIFIED Qualifiers: Constipation type: slow transit constipation Qualified Code(s): K59.01 - Slow transit constipation
[2018-03-15] MEDS ORDERED: PIPERACILLIN/TAZOBACTAM 3.375 GM VIAL IVPB ONE ×2 (00:39→17:43)
[2018-03-15] MEDS ORDERED: DEXTROSE 5%-WATER 100 ML IVPB ONE ×2 (00:39→17:43)
[2018-03-15] MEDS: PIPERACILLIN/TAZOB 3.375 GM 3.375 GM in DEXTROSE 5%-WATER 100 ML IVPB SCH ×3 (01:22→17:46)
[2018-03-15] MEDS: ACETAMINOPHEN 325 MG TABLET (FP) PO PRN ×4 (03:31→23:37)
[2018-03-15] MEDS: oxyCODONE HCL 5 MG TABLET PO PRN ×4 (03:35→23:37)
[2018-03-15] MEDS: GABAPENTIN 300 MG CAPSULE (FP) PO SCH ×3 (05:28→21:27)
[2018-03-15 06:47] LABS: BASO % 0.6 % (0-2.0); EOS % 1.4 % (0-4.5); HEMATOCRIT 24.4 % (35.4-49); LYMPH % 12.7 % (8-40); MCH 27.4 pg (25.7-33.7); MCHC 32.9 g/dl (32.0-35.9); MEAN CELL VOLUME 83.3 fl (80-96); MEAN PLT VOLUME 8.1 fl (7.5-11.1); MONO % 6.3 % (3.8-10.2); PLATELET COUNT 470 K/MM3 (134-434); RBC 2.93 M/mm3 (4.00-5.60); RDW 18.2 % (11.9-15.9); RETICULOCYTES 2.04 % (0.5-1.5); WHITE BLOOD COUNT 19.9 K/mm3 (4.0-10.0)
[2018-03-15 07:00] LABS: INR 1.69 (0.83-1.09); PROTHROMBIN TIME (PATIENT) 19.1 SEC (9.7-13.0)
[2018-03-15 07:07] LABS: ANION GAP 10 (8-16); BILIRUBIN,DIRECT 1.2 mg/dL (0.0-0.2); BILIRUBIN,TOTAL 1.4 mg/dL (0.2-1.0); BLOOD UREA NITROGEN 28 mg/dL (7-18); CALCIUM 10.7 mg/dL (8.5-10.1); CHLORIDE 101 mmol/L (98-107); CO2 24 mmol/L (21-32); CREATININE 1.3 mg/dL (0.7-1.3); GAMMA GLUTAMYL TRANSPEPTIDASE 389 U/L (5-85); GLUCOSE,RANDOM 93 mg/dL (74-106); POTASSIUM 4.7 mmol/L (3.5-5.1); SGOT/AST 34 U/L (15-37); SGPT/ALT 27 U/L (12-78); SODIUM 135 mmol/L (136-145); TOT PROT 7.7 g/dl (6.4-8.2)
[2018-03-15 07:10] LABS: ALK PHOS 521 U/L (45-117)
--- NOTE | 2018-03-15 09:06 | PN ---
Progress Note, Physician History of Present Illness: Feels the same - Current Medication List Current Medications: Active Medications Acetaminophen (Tylenol -) 325 mg PO Q4H PRN PRN Reason: PAIN SCALE 5-10 Last Admin: 03/15/18 03:31 Dose: 325 mg Bisacodyl (Dulcolax -) 20 mg PO ONCE ONE Stop: 03/16/18 18:01 Gabapentin (Neurontin -) 300 mg PO TID COUNT INCLUDES [facility] Last Admin: 03/15/18 05:28 Dose: 300 mg Vancomycin HCl (Vancomycin 1 Gm Premix -) 1 gm in 200 mls @ 133.333 mls/hr IVPB Q12H [facility]; Protocol Last Admin: 03/14/18 22:03 Dose: 133.333 mls/hr Piperacillin Sod/Tazobactam (Sod 3.375 gm/ Dextrose) 100 mls @ 200 mls/hr IVPB Q8H-IV [facility]; Protocol Last Admin: 03/15/18 01:22 Dose: 200 mls/hr Metoprolol Succinate (Toprol Xl -) 50 mg PO BID COUNT INCLUDES THE [facility] Last Admin: 03/14/18 21:45 Dose: 50 mg Metoprolol Tartrate (Lopressor Injection -) 5 mg IVPUSH Q6H PRN PRN Reason: HR >120 Oxycodone HCl (Roxicodone -) 5 mg PO Q4H PRN PRN Reason: PAIN 5-10 Last Admin: 03/15/18 03:35 Dose: 5 mg Pantoprazole Sodium (Protonix -) 20 mg PO BID COUNT INCLUDES THE [facility] Last Admin: 03/14/18 21:45 Dose: 20 mg Polyethylene Glycol (Miralax (For Daily Use) -) 17 gm PO BID COUNT INCLUDES THE [facility] Last Admin: 03/14/18 21:45 Dose: Not Given Thiamine HCl (Vitamin B1 -) 100 mg PO DAILY COUNT INCLUDES [facility] Last Admin: 03/14/18 09:19 Dose: 100 mg - Objective Vital Signs: Vital Signs Temperature 99.1 F 03/15/18 06:00 Pulse Rate 84 03/15/18 06:00 Respiratory Rate 17 03/15/18 06:00 Blood Pressure 103/55 03/15/18 06:00 O2 Sat by Pulse Oximetry (%) 97 03/14/18 21:00 Constitutional: Yes: Anxious Eyes: Yes: WNL HENT: Yes: WNL Neck: Yes: WNL Cardiovascular: Yes: Regular Rate and Rhythm Respiratory: Yes: Regular Gastrointestinal: Yes: Normal Bowel Sounds ...Rectal Exam: Yes: Deferred Breast(s): Yes: WNL Musculoskeletal: Yes: Back Pain Edema: LLE: 1+, RLE: 1+ Neurological: Yes: Alert Psychiatric: Yes: Alert Labs: CBC, BMP 03/15/18 05:30 03/15/18 05:30 INR, PTT INR 1.69 (0.83-1.09) H 03/15/18 05:30 Assessment/Plan colonoscopy and EGD
[2018-03-15] MEDS: THIAMINE HCL 100 MG TABLET (FP) PO SCH (09:34)
[2018-03-15] MEDS: PANTOPRAZOLE 20 MG TABLET (FP) PO SCH ×2 (09:34→21:27)
[2018-03-15] MEDS: POLYETHYLENE GLYCOL 3350 119 GM BTL PO SCH ×2 (09:38→21:30)
--- NOTE | 2018-03-15 10:02 | PN ---
Progress Note (short form) - Note Progress Note: s: no palpitations, cp, sob. had another bloody bm yesterday Current Medications Acetaminophen (Tylenol -) 325 mg PO Q4H PRN PRN Reason: PAIN SCALE 5-10 Last Admin: 03/15/18 09:35 Dose: 325 mg Bisacodyl (Dulcolax -) 20 mg PO ONCE ONE Stop: 03/16/18 18:01 Gabapentin (Neurontin -) 300 mg PO TID [facility] Last Admin: 03/15/18 05:28 Dose: 300 mg Vancomycin HCl (Vancomycin 1 Gm Premix -) 1 gm in 200 mls @ 133.333 mls/hr IVPB Q12H [facility]; Protocol Last Admin: 03/14/18 22:03 Dose: 133.333 mls/hr Piperacillin Sod/Tazobactam (Sod 3.375 gm/ Dextrose) 100 mls @ 200 mls/hr IVPB Q8H-IV [facility]; Protocol Last Admin: 03/15/18 09:36 Dose: 200 mls/hr Metoprolol Succinate (Toprol Xl -) 50 mg PO BID [facility] Last Admin: 03/15/18 09:37 Dose: 50 mg Metoprolol Tartrate (Lopressor Injection -) 5 mg IVPUSH Q6H PRN PRN Reason: HR >120 Oxycodone HCl (Roxicodone -) 5 mg PO Q4H PRN PRN Reason: PAIN 5-10 Last Admin: 03/15/18 09:33 Dose: 5 mg Pantoprazole Sodium (Protonix -) 20 mg PO BID [facility] Last Admin: 03/15/18 09:34 Dose: 20 mg Polyethylene Glycol (Miralax (For Daily Use) -) 17 gm PO BID [facility] Last Admin: 03/15/18 09:38 Dose: Not Given Thiamine HCl (Vitamin B1 -) 100 mg PO DAILY [facility] Last Admin: 03/15/18 09:34 Dose: 100 mg - Objective Vital Signs Period Temp Pulse Resp BP Sys/Beasley Pulse Ox Last 24 Hr 98.2 F-99.3 F 84-99 17-20 104-141/59-85 97 Constitutional: Yes: Well Nourished, No Distress, Calm Cardiovascular: Yes: Regular Rate and Rhythm, S1, S2. No: Gallop, Murmur Respiratory: Yes: Regular, CTA Bilaterally (anteriorly (back pain)). No: Accessory Muscle Use, Rales, Wheezes Extremities: No: Cold Edema: No Neurological: Yes: Alert, Oriented Psychiatric: No: Agitated Assessment/Plan ecg: sr, nl intervals, no ishcemic changes echo 03/2018: nl lv, rv tds, no sig valve path cxr: no chf a/p: 57 m htn here with low back pain. GI bleeding - stable h/h this morning - eliquis held pending GI evaluation, has planned EGD and colonoscopy on 03/17 afib: -new onset afib with rvr, now back in sr -cont toprol 50 bid -echo unremarkable -tsh wnl -chadsvasc warrants AC, however holding eliquis in setting of bloody bm's, pending GI evaluation htn: -bp controlled -cont current meds back pain, vertebral osteo: -plans per NS and ID
--- NOTE | 2018-03-15 10:40 | PN ---
Progress Note, Physician History of Present Illness: PULMONARY ALERT,COMFORTABLE,-RESP DISTRESS. + BLOODY BM YESTERDAY - Current Medication List Current Medications: Active Medications Acetaminophen (Tylenol -) 325 mg PO Q4H PRN PRN Reason: PAIN SCALE 5-10 Last Admin: 03/15/18 09:35 Dose: 325 mg Bisacodyl (Dulcolax -) 20 mg PO ONCE ONE Stop: 03/16/18 18:01 Gabapentin (Neurontin -) 300 mg PO TID [facility] Last Admin: 03/15/18 05:28 Dose: 300 mg Vancomycin HCl (Vancomycin 1 Gm Premix -) 1 gm in 200 mls @ 133.333 mls/hr IVPB Q12H [facility]; Protocol Last Admin: 03/14/18 22:03 Dose: 133.333 mls/hr Piperacillin Sod/Tazobactam (Sod 3.375 gm/ Dextrose) 100 mls @ 200 mls/hr IVPB Q8H-IV [facility]; Protocol Last Admin: 03/15/18 09:36 Dose: 200 mls/hr Metoprolol Succinate (Toprol Xl -) 50 mg PO BID [facility] Last Admin: 03/15/18 09:37 Dose: 50 mg Metoprolol Tartrate (Lopressor Injection -) 5 mg IVPUSH Q6H PRN PRN Reason: HR >120 Oxycodone HCl (Roxicodone -) 5 mg PO Q4H PRN PRN Reason: PAIN 5-10 Last Admin: 03/15/18 09:33 Dose: 5 mg Pantoprazole Sodium (Protonix -) 20 mg PO BID [facility] Last Admin: 03/15/18 09:34 Dose: 20 mg Polyethylene Glycol (Miralax (For Daily Use) -) 17 gm PO BID [facility] Last Admin: 03/15/18 09:38 Dose: Not Given Thiamine HCl (Vitamin B1 -) 100 mg PO DAILY [facility] Last Admin: 03/15/18 09:34 Dose: 100 mg - Objective Vital Signs: Vital Signs Temperature 97.6 F 03/15/18 09:10 Pulse Rate 74 03/15/18 09:10 Respiratory Rate 20 03/15/18 09:10 Blood Pressure 116/66 03/15/18 09:10 O2 Sat by Pulse Oximetry (%) 97 03/14/18 21:00 Constitutional: Yes: Calm, Obese Eyes: Yes: WNL HENT: Yes: WNL Neck: Yes: WNL Cardiovascular: Yes: Pulse Irregular, S1, S2 Respiratory: Yes: Diminished Gastrointestinal: Yes: Normal Bowel Sounds, Soft, Abdomen, Obese Extremities: Yes: WNL Edema: No Labs: CBC, BMP 03/15/18 05:30 03/15/18 05:30 INR, PTT INR 1.69 (0.83-1.09) H 03/15/18 05:30 Problem List - Problems (1) Back pain Code(s): M54.9 - DORSALGIA, UNSPECIFIED Qualifiers: Back pain location: low back pain Chronicity: unspecified Back pain laterality: right Sciatica presence: unspecified whether sciatica present Qualified Code(s): M54.5 - Low back pain (2) HTN (hypertension) Code(s): I10 - ESSENTIAL (PRIMARY) HYPERTENSION (3) New onset a-fib Code(s): I48.91 - UNSPECIFIED ATRIAL FIBRILLATION (4) Chronic alcoholism Code(s): F10.20 - ALCOHOL DEPENDENCE, UNCOMPLICATED Qualifiers: Substance use status: unspecified alcohol-induced disorder Qualified Code(s ): F10.29 - Alcohol dependence with unspecified alcohol-induced disorder (5) Hypertension Code(s): I10 - ESSENTIAL (PRIMARY) HYPERTENSION (6) GERD (gastroesophageal reflux disease) Code(s): K21.9 - GASTRO-ESOPHAGEAL REFLUX DISEASE WITHOUT ESOPHAGITIS Assessment/Plan ASSESSMENT AND PLAN: Atrial Fibrillation with RVR now in sinus Likely Obstructive Sleep Apnea r/o Vertebral Osteomyelitis HTN Hypercholesterolemia Alcohol Dependence GI Bleed - Metoprolol - AC per cardiology - antibiotics per ID formal sleep workup after D/C - pain control - community [facility] h+h DR JIMENEZ
[2018-03-15] MEDS: VANCOMYCIN 1 GM PREMIX - 1 GM/200 ML BAG IVPB SCH ×2 (11:48→23:38)
--- NOTE | 2018-03-15 18:48 | PN ---
GI Progress Note Subjective: Gi NOte: Had another bloody BM. Hb down to 8.0 - Objective Vital Signs: Vital Signs Temperature 98.8 F 03/15/18 18:05 Pulse Rate 91 H 03/15/18 18:05 Respiratory Rate 18 03/15/18 18:05 Blood Pressure 129/75 03/15/18 18:05 O2 Sat by Pulse Oximetry (%) 97 03/14/18 21:00 ...Auscultate: Yes: Normoactive Bowel Sounds ...Palpate: Yes: Soft, Other (nontender) Labs: CBC, BMP 03/15/18 05:30 03/15/18 05:30 INR, PTT INR 1.69 (0.83-1.09) H 03/15/18 05:30 Problem List - Problems (1) Rectal bleeding Assessment/Plan: Bleeding persists. Will proceed with plans for EGD and colonoscopy on 03/17. Bowel prep has been ordered. 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 Code(s): D35.02 - BENIGN NEOPLASM OF LEFT ADRENAL GLAND (4) Hemorrhoids, external Code(s): K64.4 - RESIDUAL HEMORRHOIDAL SKIN TAGS (5) GERD (gastroesophageal reflux disease) Code(s): K21.9 - GASTRO-ESOPHAGEAL REFLUX DISEASE WITHOUT ESOPHAGITIS (6) Pancreatitis Code(s): K85.9 - ACUTE PANCREATITIS, UNSPECIFIED * DO NOT USE * Qualifiers: Chronicity: acute Pancreatitis type: alcohol induced Acute pancreatitis complication: unspecified Qualified Code(s): K85.20 - Alcohol induced acute pancreatitis without necrosis or infection (7) Chronic alcoholism Code(s): F10.20 - ALCOHOL DEPENDENCE, UNCOMPLICATED Qualifiers: Substance use status: unspecified alcohol-induced disorder Qualified Code(s ): F10.29 - Alcohol dependence with unspecified alcohol-induced disorder (8) Constipation Code(s): K59.00 - CONSTIPATION, UNSPECIFIED Qualifiers: Constipation type: slow transit constipation Qualified Code(s): K59.01 - Slow transit constipation
[2018-03-16] MEDS ORDERED: DEXTROSE 5%-WATER 100 ML IVPB ONE ×3 (00:17→16:32)
[2018-03-16] MEDS ORDERED: PIPERACILLIN/TAZOBACTAM 3.375 GM VIAL IVPB ONE ×3 (00:17→16:31)
[2018-03-16] MEDS: PIPERACILLIN/TAZOB 3.375 GM 3.375 GM in DEXTROSE 5%-WATER 100 ML IVPB SCH ×3 (01:39→17:12)
[2018-03-16 06:10] LABS: HBSAG SCREEN Negative (Negative); HEP B CORE AB, TOT Negative (Negative); SERUM IRON SATURATION 11 % (15-55); TOTAL IRON BINDING CAPACITY 196 ug/dL (250-450); UIBC 174 ug/dL (111-343)
[2018-03-16] MEDS: GABAPENTIN 300 MG CAPSULE (FP) PO SCH ×3 (06:30→21:58)
[2018-03-16] MEDS: oxyCODONE HCL 5 MG TABLET PO PRN ×3 (06:30→20:33)
[2018-03-16] MEDS: ACETAMINOPHEN 325 MG TABLET (FP) PO PRN ×3 (06:30→20:33)
[2018-03-16] MEDS ORDERED: PT OWN MED DRAWER 7, Y5N ONE ×2 (08:47→18:22)
[2018-03-16] MEDS: PANTOPRAZOLE 20 MG TABLET (FP) PO SCH ×2 (08:59→21:58)
[2018-03-16] MEDS: THIAMINE HCL 100 MG TABLET (FP) PO SCH (08:59)
[2018-03-16] MEDS ORDERED: PEG3350/SOD SULF,BICARB,CL/KCL 4,000 ML SOLN.RECON PO ONE (09:00)
[2018-03-16] MEDS: POLYETHYLENE GLYCOL 3350 119 GM BTL PO SCH ×2 (09:03→22:18)
--- NOTE | 2018-03-16 09:41 | PN ---
Progress Note, Physician Chief Complaint: Rt knee pain History of Present Illness: Scheduled for EGD and colonoscopy, prep in progress - Current Medication List Current Medications: Active Medications Acetaminophen (Tylenol -) 325 mg PO Q4H PRN PRN Reason: PAIN SCALE 5-10 Last Admin: 03/16/18 06:30 Dose: 325 mg Bisacodyl (Dulcolax -) 20 mg PO ONCE ONE Stop: 03/16/18 18:01 Gabapentin (Neurontin -) 300 mg PO TID [facility] Last Admin: 03/16/18 06:30 Dose: 300 mg Vancomycin HCl (Vancomycin 1 Gm Premix -) 1 gm in 200 mls @ 133.333 mls/hr IVPB Q12H [facility]; Protocol Last Admin: 03/15/18 23:38 Dose: 133.333 mls/hr Piperacillin Sod/Tazobactam (Sod 3.375 gm/ Dextrose) 100 mls @ 200 mls/hr IVPB Q8H-IV [facility]; Protocol Last Admin: 03/16/18 09:07 Dose: 200 mls/hr Metoprolol Succinate (Toprol Xl -) 50 mg PO BID [facility] Last Admin: 03/16/18 08:59 Dose: 50 mg Metoprolol Tartrate (Lopressor Injection -) 5 mg IVPUSH Q6H PRN PRN Reason: HR >120 Oxycodone HCl (Roxicodone -) 5 mg PO Q4H PRN PRN Reason: PAIN 5-10 Last Admin: 03/16/18 06:30 Dose: 5 mg Pantoprazole Sodium (Protonix -) 20 mg PO BID [facility] Last Admin: 03/16/18 08:59 Dose: 20 mg Polyethylene Glycol (Miralax (For Daily Use) -) 17 gm PO BID [facility] Last Admin: 03/16/18 09:03 Dose: Not Given Thiamine HCl (Vitamin B1 -) 100 mg PO DAILY [facility] Last Admin: 03/16/18 08:59 Dose: 100 mg - Objective Vital Signs: Vital Signs Temperature 98.1 F 03/16/18 09:17 Pulse Rate 78 03/16/18 09:17 Respiratory Rate 18 03/16/18 09:17 Blood Pressure 112/50 03/16/18 09:17 O2 Sat by Pulse Oximetry (%) 99 03/15/18 21:00 Constitutional: Yes: Mild Distress Eyes: Yes: WNL HENT: Yes: WNL Neck: Yes: WNL Cardiovascular: Yes: WNL Respiratory: Yes: WNL Gastrointestinal: Yes: Normal Bowel Sounds ...Rectal Exam: Yes: Deferred Edema: No Neurological: Yes: Alert Labs: CBC, BMP 03/15/18 05:30 03/15/18 05:30 INR, PTT INR 1.69 (0.83-1.09) H 03/15/18 05:30 Assessment/Plan No contra indication for the procedure
[2018-03-16] MEDS: VANCOMYCIN 1 GM PREMIX - 1 GM/200 ML BAG IVPB SCH (10:12)
--- NOTE | 2018-03-16 11:01 | PN ---
Progress Note (short form) - Note Progress Note: s: no cp sob palps dizzy o: Vital Signs Period Temp Pulse Resp BP Sys/Beasley Pulse Ox Last 24 Hr 98.0 F-98.8 F 78-91 18-18 112-129/50-77 99 nad no jvd rrr s1s2 no mrg cta bl nl eff aaox3 no le e/c/c abd nt nd pos bs no jaunidce diaphoresis Current Medications Generic Name Dose Route Start Last Admin Trade Name Freq PRN Reason Stop Dose Admin Acetaminophen 325 mg 03/14/18 19:16 03/16/18 06:30 Tylenol - PO 325 mg Q4H PRN Administration PAIN SCALE 5-10 Bisacodyl 20 mg 03/16/18 18:00 Dulcolax - PO 03/16/18 18:01 ONCE ONE Gabapentin 300 mg 03/11/18 14:00 03/16/18 06:30 Neurontin - PO 300 mg TID [facility] Administration Vancomycin HCl 1 gm in 200 mls @ 133.333 mls/hr 03/11/18 11:00 03/16/18 10:12 Vancomycin 1 Gm Premix - IVPB 133.333 mls/hr Q12H [facility] Administration Protocol Piperacillin Sod/Tazobactam 100 mls @ 200 mls/hr 03/15/18 02:00 03/16/18 09: 07 Sod 3.375 gm/ Dextrose IVPB 200 mls/hr Q8H-IV [facility] Administration Protocol Metoprolol Succinate 50 mg 03/11/18 10:00 03/16/18 08:59 Toprol Xl - PO 50 mg BID [facility] Administration Metoprolol Tartrate 5 mg 03/11/18 09:47 Lopressor Injection - IVPUSH Q6H PRN HR >120 Miscellaneous 1 each 03/16/18 22:00 Lidoderm Patch Removal [facility] DAILY@2200 [facility] Oxycodone HCl 5 mg 03/14/18 19:18 03/16/18 06:30 Roxicodone - PO 5 mg Q4H PRN Administration PAIN 5-10 Pantoprazole Sodium 20 mg 03/11/18 10:00 03/16/18 08:59 Protonix - PO 20 mg BID [facility] Administration Polyethylene Glycol 17 gm 03/14/18 22:00 03/16/18 09:03 Miralax (For Daily Use) - PO Not Given BID [facility] Thiamine HCl 100 mg 03/11/18 10:00 03/16/18 08:59 Vitamin B1 - PO 100 mg DAILY [facility] Administration tele: sr ecg: sr, nl intervals, no ishcemic changes echo 03/2018: nl lv, rv tds, no sig valve path cxr: no chf a/p: 57 m htn here with low back pain. GI bleeding - stable h/h this morning - eliquis held pending GI evaluation, has planned EGD and colonoscopy on 03/17, no cardiac contraindications. afib: -new onset afib with rvr, now back in sr -cont toprol 50 bid -echo unremarkable -tsh wnl -chadsvasc warrants AC, however holding eliquis in setting of bloody bm's, pending GI evaluation htn: -bp controlled -cont current meds back pain, vertebral osteo: -plans per NS and ID
--- NOTE | 2018-03-16 12:14 | PN ---
Progress Note (short form) - Note Progress Note: PULMONARY Denies shortness of breath, cough or wheezing. Still with rectal bleeding. Vital Signs Period Temp Pulse Resp BP Sys/Beasley Pulse Ox Last 24 Hr 98.0 F-98.8 F 78-91 -18 112-129/50-77 99 Gen: NAD at rest Heart: RRR Lung: decreased breath sounds at the bases Abd: soft, nontender Ext: no edema CBC, BMP 03/15/18 05:30 03/15/18 05:30 Active Medications Acetaminophen (Tylenol -) 325 mg PO Q4H PRN PRN Reason: PAIN SCALE 5-10 Last Admin: 03/16/18 06:30 Dose: 325 mg Bisacodyl (Dulcolax -) 20 mg PO ONCE ONE Stop: 03/16/18 18:01 Gabapentin (Neurontin -) 300 mg PO TID [facility] Last Admin: 03/16/18 06:30 Dose: 300 mg Vancomycin HCl (Vancomycin 1 Gm Premix -) 1 gm in 200 mls @ 133.333 mls/hr IVPB Q12H [facility]; Protocol Last Admin: 03/16/18 10:12 Dose: 133.333 mls/hr Piperacillin Sod/Tazobactam (Sod 3.375 gm/ Dextrose) 100 mls @ 200 mls/hr IVPB Q8H-IV [facility]; Protocol Last Admin: 03/16/18 09:07 Dose: 200 mls/hr Metoprolol Succinate (Toprol Xl -) 50 mg PO BID [facility] Last Admin: 03/16/18 08:59 Dose: 50 mg Metoprolol Tartrate (Lopressor Injection -) 5 mg IVPUSH Q6H PRN PRN Reason: HR >120 Miscellaneous (Lidoderm Patch Removal) 1 each [facility] DAILY@2200 [facility] Oxycodone HCl (Roxicodone -) 5 mg PO Q4H PRN PRN Reason: PAIN 5-10 Last Admin: 03/16/18 06:30 Dose: 5 mg Pantoprazole Sodium (Protonix -) 20 mg PO BID [facility] Last Admin: 03/16/18 08:59 Dose: 20 mg Polyethylene Glycol (Miralax (For Daily Use) -) 17 gm PO BID [facility] Last Admin: 03/16/18 09:03 Dose: Not Given Thiamine HCl (Vitamin B1 -) 100 mg PO DAILY [facility] Last Admin: 03/16/18 08:59 Dose: 100 mg A/P Atrial Fibrillation with RVR now in sinus Likely Obstructive Sleep Apnea r/o Vertebral Osteomyelitis HTN Hypercholesterolemia Alcohol Dependence GI Bleed - rate controlled - holding anticoagulation due to GI bleed - antibiotics per ID - outpt PFTs, PSG - monitor H/H - for endoscopy/colonoscopy
[2018-03-16 15:13] LABS: BASO % 0.6 % (0-2.0); EOS % 1.4 % (0-4.5); HEMATOCRIT 24.5 % (35.4-49); HEMOGLOBIN 7.8 GM/dL (11.7-16.9); LYMPH % 12.1 % (8-40); MCH 26.4 pg (25.7-33.7); MCHC 31.6 g/dl (32.0-35.9); MEAN CELL VOLUME 83.5 fl (80-96); MEAN PLT VOLUME 7.7 fl (7.5-11.1); MONO % 5.6 % (3.8-10.2); NEUT % 80.3 % (42.8-82.8); PLATELET COUNT 530 K/MM3 (134-434); RBC 2.94 M/mm3 (4.00-5.60); RDW 18.7 % (11.9-15.9); WHITE BLOOD COUNT 21.2 K/mm3 (4.0-10.0)
[2018-03-16] MEDS: LIDOCAINE 5% TOPICAL PATCH TP SCH ×2 (16:38→16:39)
[2018-03-16 17:31] LABS: MACROCYTOSIS 1+; PLATELET ESTIMATE MOD INCREASED
[2018-03-16] MEDS ORDERED: BISACODYL 5 MG TABLET.DR (FP) PO ONE (18:00)
[2018-03-16] MEDS ORDERED: LIDOCAINE PATCH REMOVAL MC SCH (22:00)
[2018-03-16] MEDS: LIDOCAINE PATCH REMOVAL MC SCH ×2 (22:22→22:23)
--- NOTE | 2018-03-16 22:29 | PN ---
GI Progress Note Subjective: GI NOte: Had rectal bleeding during the bowel prep that necessitated a transfusion. Bleeding has ablated. He has not yet finished the Gol[place] and I encouraged him to do so. - Objective Vital Signs: Vital Signs Temperature 97.7 F 03/16/18 18:00 Pulse Rate 87 03/16/18 18:00 Respiratory Rate 20 03/16/18 18:00 Blood Pressure 123/84 03/16/18 18:00 O2 Sat by Pulse Oximetry (%) 98 03/16/18 09:00 Constitutional: No Distress ...Auscultate: Yes: Hyperactive Bowel Sounds ...Palpate: Yes: Soft, Other (nontender) Labs: CBC, BMP 03/16/18 14:50 03/15/18 05:30 INR, PTT INR 1.69 (0.83-1.09) H 03/15/18 05:30 Problem List - Problems (1) Rectal bleeding Assessment/Plan: Bleeding persists. Will proceed with plans for EGD and colonoscopy on 03/17. Bowel prep still in progress. 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 Code(s): D35.02 - BENIGN NEOPLASM OF LEFT ADRENAL GLAND (4) Hemorrhoids, external Code(s): K64.4 - RESIDUAL HEMORRHOIDAL SKIN TAGS (5) GERD (gastroesophageal reflux disease) Code(s): K21.9 - GASTRO-ESOPHAGEAL REFLUX DISEASE WITHOUT ESOPHAGITIS (6) Pancreatitis Code(s): K85.9 - ACUTE PANCREATITIS, UNSPECIFIED * DO NOT USE * Qualifiers: Chronicity: acute Pancreatitis type: alcohol induced Acute pancreatitis complication: unspecified Qualified Code(s): K85.20 - Alcohol induced acute pancreatitis without necrosis or infection (7) Chronic alcoholism Code(s): F10.20 - ALCOHOL DEPENDENCE, UNCOMPLICATED Qualifiers: Substance use status: unspecified alcohol-induced disorder Qualified Code(s ): F10.29 - Alcohol dependence with unspecified alcohol-induced disorder (8) Constipation Code(s): K59.00 - CONSTIPATION, UNSPECIFIED Qualifiers: Constipation type: slow transit constipation Qualified Code(s): K59.01 - Slow transit constipation
[2018-03-17] MEDS ORDERED: PIPERACILLIN/TAZOBACTAM 3.375 GM VIAL IVPB ONE ×3 (00:23→17:03)
[2018-03-17] MEDS ORDERED: DEXTROSE 5%-WATER 100 ML IVPB ONE ×3 (00:23→17:03)
[2018-03-17] MEDS: VANCOMYCIN 1 GM PREMIX - 1 GM/200 ML BAG IVPB SCH ×3 (01:23→16:58)
[2018-03-17] MEDS: PIPERACILLIN/TAZOB 3.375 GM 3.375 GM in DEXTROSE 5%-WATER 100 ML IVPB SCH ×3 (03:52→19:13)
[2018-03-17] MEDS: oxyCODONE HCL 5 MG TABLET PO PRN ×3 (03:57→17:11)
[2018-03-17] MEDS: ACETAMINOPHEN 325 MG TABLET (FP) PO PRN ×3 (03:58→17:12)
[2018-03-17] MEDS: GABAPENTIN 300 MG CAPSULE (FP) PO SCH ×3 (07:17→22:51)
[2018-03-17] MEDS: POLYETHYLENE GLYCOL 3350 119 GM BTL PO SCH ×2 (09:00→22:51)
[2018-03-17] MEDS: THIAMINE HCL 100 MG TABLET (FP) PO SCH (09:01)
[2018-03-17] MEDS: PANTOPRAZOLE 20 MG TABLET (FP) PO SCH ×2 (09:01→22:51)
--- NOTE | 2018-03-17 09:51 | PN ---
Progress Note, Physician Chief Complaint: C/O rectal bleeding History of Present Illness: Blood trsfussion in progress - Current Medication List Current Medications: Active Medications Acetaminophen (Tylenol -) 325 mg PO Q4H PRN PRN Reason: PAIN SCALE 5-10 Last Admin: 03/17/18 07:17 Dose: 325 mg Gabapentin (Neurontin -) 300 mg PO TID [facility] Last Admin: 03/17/18 07:17 Dose: 300 mg Vancomycin HCl (Vancomycin 1 Gm Premix -) 1 gm in 200 mls @ 133.333 mls/hr IVPB Q12H [facility]; Protocol Last Admin: 03/17/18 01:23 Dose: 133.333 mls/hr Piperacillin Sod/Tazobactam (Sod 3.375 gm/ Dextrose) 100 mls @ 200 mls/hr IVPB Q8H-IV [facility]; Protocol Last Admin: 03/17/18 03:52 Dose: 200 mls/hr Lidocaine (Lidoderm Patch -) 1 patch TP DAILY [facility] Last Admin: 03/16/18 16:38 Dose: 1 patch Lidocaine (Lidoderm Patch -) 1 patch TP DAILY [facility] Last Admin: 03/16/18 16:39 Dose: 1 patch Metoprolol Succinate (Toprol Xl -) 50 mg PO BID [facility] Last Admin: 03/17/18 09:01 Dose: 50 mg Metoprolol Tartrate (Lopressor Injection -) 5 mg IVPUSH Q6H PRN PRN Reason: HR >120 Miscellaneous (Lidoderm Patch Removal) 1 each MC DAILY@2200 [facility] Last Admin: 03/16/18 22:22 Dose: 1 each Miscellaneous (Lidoderm Patch Removal) 1 each [facility] DAILY@2200 [facility] Last Admin: 03/16/18 22:23 Dose: 1 each Oxycodone HCl (Roxicodone -) 5 mg PO Q4H PRN PRN Reason: PAIN 5-10 Last Admin: 03/17/18 07:18 Dose: 5 mg Pantoprazole Sodium (Protonix -) 20 mg PO BID [facility] Last Admin: 03/17/18 09:01 Dose: 20 mg Polyethylene Glycol (Miralax (For Daily Use) -) 17 gm PO BID [facility] Last Admin: 03/16/18 22:18 Dose: Not Given Thiamine HCl (Vitamin B1 -) 100 mg PO DAILY [facility] Last Admin: 03/17/18 09:01 Dose: 100 mg - Objective Vital Signs: Vital Signs Temperature 98.6 F 03/17/18 06:00 Pulse Rate 92 H 03/17/18 09:00 Respiratory Rate 18 03/17/18 09:00 Blood Pressure 144/80 03/17/18 09:00 O2 Sat by Pulse Oximetry (%) 97 03/16/18 21:00 Constitutional: Yes: Anxious Eyes: Yes: WNL HENT: Yes: WNL Neck: Yes: WNL Cardiovascular: Yes: WNL Respiratory: Yes: WNL Gastrointestinal: Yes: Normal Bowel Sounds ...Rectal Exam: Yes: Deferred Genitourinary: Yes: WNL Musculoskeletal: Yes: Muscle Weakness Edema: No Peripheral Pulses WNL: Yes Psychiatric: Yes: Alert Labs: CBC, BMP 03/16/18 14:50 03/15/18 05:30 INR, PTT INR 1.69 (0.83-1.09) H 03/15/18 05:30 Assessment/Plan Rpt CBC Colonoscopy scheduled by 2PM
--- NOTE | 2018-03-17 11:15 | PN ---
Progress Note, Physician History of Present Illness: Supine in bed No acute distress at rest C/O low back pain, LE weakness Afebrile Aspirate cultures no growth to date - Current Medication List Current Medications: Active Medications Acetaminophen (Tylenol -) 325 mg PO Q4H PRN PRN Reason: PAIN SCALE 5-10 Last Admin: 03/17/18 07:17 Dose: 325 mg Gabapentin (Neurontin -) 300 mg PO TID [facility] Last Admin: 03/17/18 07:17 Dose: 300 mg Vancomycin HCl (Vancomycin 1 Gm Premix -) 1 gm in 200 mls @ 133.333 mls/hr IVPB Q12H [facility]; Protocol Last Admin: 03/17/18 01:23 Dose: 133.333 mls/hr Piperacillin Sod/Tazobactam (Sod 3.375 gm/ Dextrose) 100 mls @ 200 mls/hr IVPB Q8H-IV [facility]; Protocol Last Admin: 03/17/18 03:52 Dose: 200 mls/hr Lidocaine (Lidoderm Patch -) 1 patch TP DAILY [facility] Last Admin: 03/16/18 16:38 Dose: 1 patch Lidocaine (Lidoderm Patch -) 1 patch TP DAILY [facility] Last Admin: 03/16/18 16:39 Dose: 1 patch Metoprolol Succinate (Toprol Xl -) 50 mg PO BID [facility] Last Admin: 03/17/18 09:01 Dose: 50 mg Metoprolol Tartrate (Lopressor Injection -) 5 mg IVPUSH Q6H PRN PRN Reason: HR >120 Miscellaneous (Lidoderm Patch Removal) 1 each [facility] DAILY@2200 [facility] Last Admin: 03/16/18 22:22 Dose: 1 each Miscellaneous (Lidoderm Patch Removal) 1 each [facility] DAILY@2200 [facility] Last Admin: 03/16/18 22:23 Dose: 1 each Oxycodone HCl (Roxicodone -) 5 mg PO Q4H PRN PRN Reason: PAIN 5-10 Last Admin: 03/17/18 07:18 Dose: 5 mg Pantoprazole Sodium (Protonix -) 20 mg PO BID [facility] Last Admin: 03/17/18 09:01 Dose: 20 mg Polyethylene Glycol (Miralax (For Daily Use) -) 17 gm PO BID [facility] Last Admin: 03/16/18 22:18 Dose: Not Given Thiamine HCl (Vitamin B1 -) 100 mg PO DAILY [facility] Last Admin: 03/17/18 09:01 Dose: 100 mg - Objective Vital Signs: Vital Signs Temperature 98.6 F 03/17/18 06:00 Pulse Rate 92 H 03/17/18 09:00 Respiratory Rate 18 03/17/18 09:00 Blood Pressure 144/80 03/17/18 09:00 O2 Sat by Pulse Oximetry (%) 97 03/16/18 21:00 Constitutional: Yes: No Distress Eyes: Yes: Conjunctiva Clear Cardiovascular: Yes: Regular Rate and Rhythm, S1, S2 Respiratory: Yes: CTA Bilaterally Gastrointestinal: Yes: Normal Bowel Sounds, Soft. No: Tenderness Edema: Yes Labs: CBC, BMP 03/16/18 14:50 03/15/18 05:30 INR, PTT INR 1.69 (0.83-1.09) H 03/15/18 05:30 Assessment/Plan ? Recurrent vertebral osteomyelitis S/P New onset Afib Continue empiric vancomycin/ unasyn RepeaT VANCOMYCIN TROUGH PICC for outpatient antibiotic therapy
--- NOTE | 2018-03-17 11:32 | PN ---
Progress Note (short form) - Note Progress Note: s: no cp sob palps dizzy o: Vital Signs Period Temp Pulse Resp BP Sys/Beasley Pulse Ox Last 24 Hr 97.7 F-99.2 F 74-97 18-20 111-144/64-84 97 nad no jvd rrr s1s2 no mrg cta bl nl eff aaox3 no le e/c/c abd nt nd pos bs no jaundice diaphoresis Current Medications Generic Name Dose Route Start Last Admin Trade Name Freq PRN Reason Stop Dose Admin Acetaminophen 325 mg 03/14/18 19:16 03/17/18 07:17 Tylenol - PO 325 mg Q4H PRN Administration PAIN SCALE 5-10 Gabapentin 300 mg 03/11/18 14:00 03/17/18 07:17 Neurontin - PO 300 mg TID [facility] Administration Vancomycin HCl 1 gm in 200 mls @ 133.333 mls/hr 03/11/18 11:00 03/17/18 01:23 Vancomycin 1 Gm Premix - IVPB 133.333 mls/hr Q12H [facility] Administration Protocol Piperacillin Sod/Tazobactam 100 mls @ 200 mls/hr 03/15/18 02:00 03/17/18 03: 52 Sod 3.375 gm/ Dextrose IVPB 200 mls/hr Q8H-IV [facility] Administration Protocol Lidocaine 1 patch 03/16/18 15:45 03/16/18 16:38 Lidoderm Patch - TP 1 patch DAILY [facility] Administration Lidocaine 1 patch 03/16/18 15:45 03/16/18 16:39 Lidoderm Patch - TP 1 patch DAILY [facility] Administration Metoprolol Succinate 50 mg 03/11/18 10:00 03/17/18 09:01 Toprol Xl - PO 50 mg BID [facility] Administration Metoprolol Tartrate 5 mg 03/11/18 09:47 Lopressor Injection - IVPUSH Q6H PRN HR >120 Miscellaneous 1 each 03/16/18 22:00 03/16/18 22:22 Lidoderm Patch Removal MC 1 each DAILY@2200 [facility] Administration Miscellaneous 1 each 03/16/18 22:00 03/16/18 22:23 Lidoderm Patch Removal MC 1 each DAILY@2200 [facility] Administration Oxycodone HCl 5 mg 03/14/18 19:18 03/17/18 07:18 Roxicodone - PO 5 mg Q4H PRN Administration PAIN 5-10 Pantoprazole Sodium 20 mg 03/11/18 10:00 03/17/18 09:01 Protonix - PO 20 mg BID [facility] Administration Polyethylene Glycol 17 gm 03/14/18 22:00 03/16/18 22:18 Miralax (For Daily Use) - PO Not Given BID [facility] Thiamine HCl 100 mg 03/11/18 10:00 03/17/18 09:01 Vitamin B1 - PO 100 mg DAILY [facility] Administration CBC, BMP 03/16/18 14:50 03/15/18 05:30 ecg: sr, nl intervals, no ishcemic changes echo 03/2018: nl lv, rv tds, no sig valve path cxr: no chf a/p: 57 m htn here with low back pain. GI bleeding - stable h/h this morning - eliquis held pending GI evaluation, has planned EGD and colonoscopy on 03/17, no cardiac contraindications. afib: -new onset afib with rvr, now back in sr -cont toprol 50 bid -echo unremarkable -tsh wnl -chadsvasc warrants AC, however holding eliquis in setting of bloody bm's, pending GI evaluation htn: -bp controlled -cont current meds back pain, vertebral osteo: -plans per NS and ID
[2018-03-17 13:07] LABS: BASO % 1.3 % (0-2.0); EOS % 1.4 % (0-4.5); HEMATOCRIT 27.4 % (35.4-49); LYMPH % 12.9 % (8-40); MCH 27.2 pg (25.7-33.7); MCHC 32.8 g/dl (32.0-35.9); MEAN CELL VOLUME 82.7 fl (80-96); NEUT % 78.4 % (42.8-82.8); PLATELET COUNT 463 K/MM3 (134-434); RBC 3.31 M/mm3 (4.00-5.60); RDW 17.5 % (11.9-15.9); WHITE BLOOD COUNT 19.1 K/mm3 (4.0-10.0)
[2018-03-17 13:28] LABS: ANION GAP 9 (8-16); BLOOD UREA NITROGEN 19 mg/dL (7-18); CHLORIDE 101 mmol/L (98-107); CO2 25 mmol/L (21-32); CREATININE 1.3 mg/dL (0.7-1.3); GLUCOSE,RANDOM 81 mg/dL (74-106); POTASSIUM 4.4 mmol/L (3.5-5.1); SODIUM 135 mmol/L (136-145)
[2018-03-17 13:44] LABS: INR 1.52 (0.83-1.09); PROTHROMBIN TIME (PATIENT) 17.2 SEC (9.7-13.0)
[2018-03-17] MEDS ORDERED: LIDOCAINE HCL 2% JELLY 10 ML CARTRIDGE TP ONE (15:55)
[2018-03-17] MEDS ORDERED: LIDOCAINE HCL 2% JELLY 10 ML CARTRIDGE ONE ×2 (15:56)
[2018-03-17] MEDS: LIDOCAINE 5% TOPICAL PATCH TP SCH ×2 (17:06→17:07)
--- NOTE | 2018-03-17 17:06 | PN ---
Progress Note (short form) - Note Progress Note: GI Procedures NOte: Please see EGD and colonoscopy reports. The bleeding is from internal hemorrhoids which were rubber band ligated. He had a large right colon polyp removed which precludes resuming anticoagulation for at least 5 days. He will have rectal pain from the banding for several days. 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 Code(s): D35.02 - BENIGN NEOPLASM OF LEFT ADRENAL GLAND (4) Hemorrhoids, external Code(s): K64.4 - RESIDUAL HEMORRHOIDAL SKIN TAGS (5) GERD (gastroesophageal reflux disease) Code(s): K21.9 - GASTRO-ESOPHAGEAL REFLUX DISEASE WITHOUT ESOPHAGITIS (6) Pancreatitis Code(s): K85.9 - ACUTE PANCREATITIS, UNSPECIFIED * DO NOT USE * Qualifiers: Chronicity: acute Pancreatitis type: alcohol induced Acute pancreatitis complication: unspecified Qualified Code(s): K85.20 - Alcohol induced acute pancreatitis without necrosis or infection (7) Chronic alcoholism Code(s): F10.20 - ALCOHOL DEPENDENCE, UNCOMPLICATED Qualifiers: Substance use status: unspecified alcohol-induced disorder Qualified Code(s ): F10.29 - Alcohol dependence with unspecified alcohol-induced disorder (8) Constipation Code(s): K59.00 - CONSTIPATION, UNSPECIFIED Qualifiers: Constipation type: slow transit constipation Qualified Code(s): K59.01 - Slow transit constipation
[2018-03-17] MEDS ORDERED: LIDOCAINE HCL 2% JELLY 10 ML CARTRIDGE PR PRN (17:13)
[2018-03-17] MEDS ORDERED: PHYTONADIONE 10 MG/1 ML AMP IVPB ONE (17:30)
[2018-03-17] MEDS: IBUPROFEN 400 MG TABLET (FP) PO SCH ×2 (17:55→23:48)
[2018-03-17] MEDS: LIDOCAINE PATCH REMOVAL MC SCH ×2 (22:50)
[2018-03-18] MEDS ORDERED: PIPERACILLIN/TAZOBACTAM 3.375 GM VIAL IVPB ONE ×3 (01:36→18:08)
[2018-03-18] MEDS ORDERED: DEXTROSE 5%-WATER 100 ML IVPB ONE ×3 (01:37→18:08)
[2018-03-18] MEDS: PIPERACILLIN/TAZOB 3.375 GM 3.375 GM in DEXTROSE 5%-WATER 100 ML IVPB SCH ×3 (02:51→18:10)
[2018-03-18] MEDS: VANCOMYCIN 1 GM PREMIX - 1 GM/200 ML BAG IVPB SCH ×2 (03:09→17:11)
[2018-03-18] MEDS: IBUPROFEN 400 MG TABLET (FP) PO SCH ×3 (06:12→18:12)
[2018-03-18] MEDS: GABAPENTIN 300 MG CAPSULE (FP) PO SCH ×3 (06:12→21:53)
[2018-03-18 08:35] LABS: BASO % 0.6 % (0-2.0); EOS % 1.3 % (0-4.5); HEMATOCRIT 25.6 % (35.4-49); HEMOGLOBIN 8.6 GM/dL (11.7-16.9); LYMPH % 12.1 % (8-40); MCHC 33.4 g/dl (32.0-35.9); MEAN CELL VOLUME 83.9 fl (80-96); MEAN PLT VOLUME 7.8 fl (7.5-11.1); MONO % 5.4 % (3.8-10.2); NEUT % 80.6 % (42.8-82.8); PLATELET COUNT 463 K/MM3 (134-434); RBC 3.05 M/mm3 (4.00-5.60); RDW 17.9 % (11.9-15.9); WHITE BLOOD COUNT 14.4 K/mm3 (4.0-10.0)
[2018-03-18 08:58] LABS: INR 1.31 (0.83-1.09); PROTHROMBIN TIME (PATIENT) 14.8 SEC (9.7-13.0)
--- NOTE | 2018-03-18 08:59 | PN ---
Progress Note, Physician Chief Complaint: No bleeding History of Present Illness: S/P colonoscopy ,ligation of hemorrhoids and large polypectomy Tolerated the procedure well - Current Medication List Current Medications: Active Medications Acetaminophen (Tylenol -) 325 mg PO Q4H PRN PRN Reason: PAIN SCALE 5-10 Last Admin: 03/17/18 17:12 Dose: 325 mg Gabapentin (Neurontin -) 300 mg PO TID [facility] Last Admin: 03/18/18 06:12 Dose: 300 mg Piperacillin Sod/Tazobactam (Sod 3.375 gm/ Dextrose) 100 mls @ 200 mls/hr IVPB Q8H-IV [facility]; Protocol Last Admin: 03/18/18 02:51 Dose: 200 mls/hr Vancomycin HCl (Vancomycin 1 Gm Premix -) 1 gm in 200 mls @ 133.333 mls/hr IVPB BID@0400,1600 [facility]; Protocol Last Admin: 03/18/18 03:09 Dose: 133.333 mls/hr Ibuprofen (Motrin -) 200 mg PO Q6HPO [facility] Stop: 03/20/18 17:59 Last Admin: 03/18/18 06:12 Dose: 200 mg Lidocaine (Lidoderm Patch -) 1 patch TP DAILY [facility] Last Admin: 03/17/18 17:06 Dose: 1 patch Lidocaine (Lidoderm Patch -) 1 patch TP DAILY [facility] Last Admin: 03/17/18 17:07 Dose: 1 patch Lidocaine HCl (Xylocaine 2% Uro-Jet) 10 ml [place] TID PRN PRN Reason: PAIN LEVEL 6-10 Metoprolol Succinate (Toprol Xl -) 50 mg PO BID [facility] Last Admin: 03/17/18 22:51 Dose: 50 mg Metoprolol Tartrate (Lopressor Injection -) 5 mg IVPUSH Q6H PRN PRN Reason: HR >120 Miscellaneous (Lidoderm Patch Removal) 1 each MC DAILY@2200 [facility] Last Admin: 03/17/18 22:50 Dose: 1 each Miscellaneous (Lidoderm Patch Removal) 1 each MC DAILY@2200 [facility] Last Admin: 03/17/18 22:50 Dose: 1 each Pantoprazole Sodium (Protonix -) 20 mg PO BID [facility] Last Admin: 03/17/18 22:51 Dose: 20 mg Polyethylene Glycol (Miralax (For Daily Use) -) 17 gm PO BID [facility] Last Admin: 03/17/18 22:51 Dose: Not Given Thiamine HCl (Vitamin B1 -) 100 mg PO DAILY [facility] Last Admin: 03/17/18 09:01 Dose: 100 mg - Objective Vital Signs: Vital Signs Temperature 97.7 F 03/18/18 06:00 Pulse Rate 72 03/18/18 06:00 Respiratory Rate 20 03/18/18 06:00 Blood Pressure 141/76 03/18/18 06:00 O2 Sat by Pulse Oximetry (%) 96 03/17/18 21:00 Constitutional: Yes: Mild Distress Eyes: Yes: WNL HENT: Yes: WNL Neck: Yes: WNL Cardiovascular: Yes: WNL Respiratory: Yes: WNL ...Rectal Exam: Yes: Deferred Musculoskeletal: Yes: Muscle Weakness Edema: No Integumentary: Yes: WNL Neurological: Yes: Alert Labs: CBC, BMP 03/18/18 07:51 INR, PTT INR 1.52 (0.83-1.09) H 03/17/18 12:30 Assessment/Plan Hold [facility]
[2018-03-18 09:19] LABS: ANION GAP 9 (8-16); BLOOD UREA NITROGEN 19 mg/dL (7-18); CALCIUM 10.5 mg/dL (8.5-10.1); CHLORIDE 102 mmol/L (98-107); CO2 25 mmol/L (21-32); CREATININE 1.2 mg/dL (0.7-1.3); GLUCOSE,RANDOM 113 mg/dL (74-106); POTASSIUM 3.9 mmol/L (3.5-5.1); SODIUM 136 mmol/L (136-145)
[2018-03-18] MEDS: LIDOCAINE 5% TOPICAL PATCH TP SCH ×2 (11:03)
[2018-03-18] MEDS: PANTOPRAZOLE 20 MG TABLET (FP) PO SCH ×2 (11:03→21:54)
[2018-03-18] MEDS: THIAMINE HCL 100 MG TABLET (FP) PO SCH (11:04)
[2018-03-18] MEDS: ACETAMINOPHEN WITH CODEINE 300MG/30MG TABLET PO PRN ×2 (11:06→21:52)
[2018-03-18] MEDS: POLYETHYLENE GLYCOL 3350 119 GM BTL PO SCH ×2 (11:47→21:53)
--- NOTE | 2018-03-18 17:15 | PN ---
Progress Note, Physician History of Present Illness: Supine in bed No acute distress at rest Still with low back pain, LE weakness Afebrile WBC improved CRP improved Aspirate cultures no growth - Current Medication List Current Medications: Active Medications Acetaminophen (Tylenol -) 325 mg PO Q4H PRN PRN Reason: PAIN SCALE 5-10 Last Admin: 03/17/18 17:12 Dose: 325 mg Acetaminophen/Codeine Phosphate (Tylenol # 3 -) 2 tab PO Q4H PRN PRN Reason: PAIN LEVEL 6-10 Last Admin: 03/18/18 11:06 Dose: 2 tab Gabapentin (Neurontin -) 300 mg PO TID [facility] Last Admin: 03/18/18 13:38 Dose: 300 mg Piperacillin Sod/Tazobactam (Sod 3.375 gm/ Dextrose) 100 mls @ 200 mls/hr IVPB Q8H-IV [facility]; Protocol Last Admin: 03/18/18 11:04 Dose: 200 mls/hr Vancomycin HCl (Vancomycin 1 Gm Premix -) 1 gm in 200 mls @ 133.333 mls/hr IVPB BID@0400,1600 [facility]; Protocol Last Admin: 03/18/18 03:09 Dose: 133.333 mls/hr Ibuprofen (Motrin -) 200 mg PO Q6HPO [facility] Stop: 03/20/18 17:59 Last Admin: 03/18/18 13:36 Dose: 200 mg Lidocaine (Lidoderm Patch -) 1 patch TP DAILY [facility] Last Admin: 03/18/18 11:03 Dose: 1 patch Lidocaine (Lidoderm Patch -) 1 patch TP DAILY [facility] Last Admin: 03/18/18 11:03 Dose: 1 patch Lidocaine HCl (Xylocaine 2% Uro-Jet) 10 ml AL TID PRN PRN Reason: PAIN LEVEL 6-10 Metoprolol Succinate (Toprol Xl -) 50 mg PO BID [facility] Last Admin: 03/18/18 11:04 Dose: 50 mg Metoprolol Tartrate (Lopressor Injection -) 5 mg IVPUSH Q6H PRN PRN Reason: HR >120 Miscellaneous (Lidoderm Patch Removal) 1 each MC DAILY@2200 [facility] Last Admin: 03/17/18 22:50 Dose: 1 each Miscellaneous (Lidoderm Patch Removal) 1 each MC DAILY@2200 [facility] Last Admin: 03/17/18 22:50 Dose: 1 each Pantoprazole Sodium (Protonix -) 20 mg PO BID [facility] Last Admin: 03/18/18 11:03 Dose: 20 mg Polyethylene Glycol (Miralax (For Daily Use) -) 17 gm PO BID [facility] Last Admin: 03/18/18 11:47 Dose: Not Given Thiamine HCl (Vitamin B1 -) 100 mg PO DAILY [facility] Last Admin: 03/18/18 11:04 Dose: 100 mg - Objective Vital Signs: Vital Signs Temperature 98.1 F 03/18/18 14:58 Pulse Rate 82 03/18/18 14:58 Respiratory Rate 22 03/18/18 14:58 Blood Pressure 114/71 03/18/18 14:58 O2 Sat by Pulse Oximetry (%) 98 03/18/18 09:00 Constitutional: Yes: No Distress, Obese Cardiovascular: Yes: Regular Rate and Rhythm, S1, S2 Respiratory: Yes: CTA Bilaterally Gastrointestinal: Yes: Normal Bowel Sounds, Soft, Abdomen, Obese. No: Tenderness Edema: Yes Labs: CBC, BMP 03/18/18 07:51 03/18/18 07:51 INR, PTT INR 1.31 (0.83-1.09) H 03/18/18 07:51 Assessment/Plan ? Recurrent vertebral osteomyelitis S/P New onset Afib Continue empiric vancomycin/ unasyn Repeat vanco trough noted PICC for outpatient antibiotic therapy
--- NOTE | 2018-03-18 17:18 | PN ---
GI Progress Note Subjective: GI NOte: Tolerating the perianal pain well. No further rectal bleeding. - Objective Vital Signs: Vital Signs Temperature 98.1 F 03/18/18 14:58 Pulse Rate 82 03/18/18 14:58 Respiratory Rate 22 03/18/18 14:58 Blood Pressure 114/71 03/18/18 14:58 O2 Sat by Pulse Oximetry (%) 98 03/18/18 09:00 Constitutional: No Distress ...Auscultate: Yes: Normoactive Bowel Sounds ...Palpate: Yes: Soft, Other (nontender) Labs: CBC, BMP 03/18/18 07:51 03/18/18 07:51 INR, PTT INR 1.31 (0.83-1.09) H 03/18/18 07:51 Problem List - Problems (1) Rectal bleeding Assessment/Plan: Hemorrhoidal bleeding resolved with rubber band ligation. No bleeding following large polypectomy so far. 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 Code(s): D35.02 - BENIGN NEOPLASM OF LEFT ADRENAL GLAND (4) Hemorrhoids, external Code(s): K64.4 - RESIDUAL HEMORRHOIDAL SKIN TAGS (5) GERD (gastroesophageal reflux disease) Code(s): K21.9 - GASTRO-ESOPHAGEAL REFLUX DISEASE WITHOUT ESOPHAGITIS (6) Pancreatitis Code(s): K85.9 - ACUTE PANCREATITIS, UNSPECIFIED * DO NOT USE * Qualifiers: Chronicity: acute Pancreatitis type: alcohol induced Acute pancreatitis complication: unspecified Qualified Code(s): K85.20 - Alcohol induced acute pancreatitis without necrosis or infection (7) Chronic alcoholism Code(s): F10.20 - ALCOHOL DEPENDENCE, UNCOMPLICATED Qualifiers: Substance use status: unspecified alcohol-induced disorder Qualified Code(s ): F10.29 - Alcohol dependence with unspecified alcohol-induced disorder (8) Constipation Code(s): K59.00 - CONSTIPATION, UNSPECIFIED Qualifiers: Constipation type: slow transit constipation Qualified Code(s): K59.01 - Slow transit constipation
[2018-03-18] MEDS ORDERED: PT OWN MED DRAWER 7, Y5N ONE (20:01)
[2018-03-18] MEDS: LIDOCAINE PATCH REMOVAL MC SCH ×2 (21:53)
[2018-03-19] MEDS ORDERED: PIPERACILLIN/TAZOBACTAM 3.375 GM VIAL IVPB ONE ×3 (02:00→18:27)
[2018-03-19] MEDS ORDERED: DEXTROSE 5%-WATER 100 ML IVPB ONE ×3 (02:00→18:27)
[2018-03-19] MEDS: IBUPROFEN 400 MG TABLET (FP) PO SCH ×3 (02:26→12:39)
[2018-03-19] MEDS: PIPERACILLIN/TAZOB 3.375 GM 3.375 GM in DEXTROSE 5%-WATER 100 ML IVPB SCH ×3 (02:27→18:36)
[2018-03-19] MEDS: VANCOMYCIN 1 GM PREMIX - 1 GM/200 ML BAG IVPB SCH ×2 (04:08→16:27)
[2018-03-19] MEDS: ACETAMINOPHEN WITH CODEINE 300MG/30MG TABLET PO PRN ×2 (05:12→16:26)
[2018-03-19] MEDS: GABAPENTIN 300 MG CAPSULE (FP) PO SCH ×3 (07:00→21:57)
[2018-03-19] MEDS ORDERED: PT OWN MED DRAWER 7, Y5N ONE (09:48)
[2018-03-19] MEDS: THIAMINE HCL 100 MG TABLET (FP) PO SCH (10:00)
[2018-03-19] MEDS: LIDOCAINE 5% TOPICAL PATCH TP SCH ×2 (10:00)
[2018-03-19] MEDS: PANTOPRAZOLE 20 MG TABLET (FP) PO SCH ×2 (10:00→21:57)
[2018-03-19] MEDS: POLYETHYLENE GLYCOL 3350 119 GM BTL PO SCH ×2 (10:01→21:57)
--- NOTE | 2018-03-19 13:59 | PN ---
GI Progress Note Subjective: GI NOte: No rectal bleeding. Having brown BMs, Rectal pain minimal. Will stop NSAID - Objective Vital Signs: Vital Signs Temperature 97.8 F 03/19/18 09:57 Pulse Rate 84 03/19/18 09:57 Respiratory Rate 21 03/19/18 09:57 Blood Pressure 126/79 03/19/18 09:57 O2 Sat by Pulse Oximetry (%) 97 03/18/18 21:00 Laboratory Tests 03/12/18 03/15/18 03/16/18 05:30 05:30 14:50 WBC 21.2 H Hgb 9.6 L 8.0 L 7.8 L 03/17/18 03/18/18 12:30 07:51 WBC 19.1 H 14.4 H Hgb 9.0 L 8.6 L ...Auscultate: Yes: Normoactive Bowel Sounds ...Palpate: Yes: Soft, Other (nontender) Labs: CBC, BMP 03/18/18 07:51 03/18/18 07:51 INR, PTT INR 1.31 (0.83-1.09) H 03/18/18 07:51 Problem List - Problems (1) Rectal bleeding Assessment/Plan: Hemorrhoidal bleeding resolved with rubber band ligation. No bleeding following large polypectomy so far. 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 Code(s): D35.02 - BENIGN NEOPLASM OF LEFT ADRENAL GLAND (4) Hemorrhoids, external Code(s): K64.4 - RESIDUAL HEMORRHOIDAL SKIN TAGS (5) GERD (gastroesophageal reflux disease) Code(s): K21.9 - GASTRO-ESOPHAGEAL REFLUX DISEASE WITHOUT ESOPHAGITIS (6) Pancreatitis Code(s): K85.9 - ACUTE PANCREATITIS, UNSPECIFIED * DO NOT USE * Qualifiers: Chronicity: acute Pancreatitis type: alcohol induced Acute pancreatitis complication: unspecified Qualified Code(s): K85.20 - Alcohol induced acute pancreatitis without necrosis or infection (7) Chronic alcoholism Code(s): F10.20 - ALCOHOL DEPENDENCE, UNCOMPLICATED Qualifiers: Substance use status: unspecified alcohol-induced disorder Qualified Code(s ): F10.29 - Alcohol dependence with unspecified alcohol-induced disorder (8) Constipation Code(s): K59.00 - CONSTIPATION, UNSPECIFIED Qualifiers: Constipation type: slow transit constipation Qualified Code(s): K59.01 - Slow transit constipation
--- NOTE | 2018-03-19 16:25 | PN ---
Progress Note, Physician Chief Complaint: C/O Generalised weakness and not ambulating no b blood mixed stools - Current Medication List Current Medications: Active Medications Acetaminophen (Tylenol -) 325 mg PO Q4H PRN PRN Reason: PAIN SCALE 5-10 Last Admin: 03/17/18 17:12 Dose: 325 mg Acetaminophen/Codeine Phosphate (Tylenol # 3 -) 2 tab PO Q4H PRN PRN Reason: PAIN LEVEL 6-10 Last Admin: 03/19/18 05:12 Dose: 2 tab Gabapentin (Neurontin -) 300 mg PO TID [facility] Last Admin: 03/19/18 13:10 Dose: 300 mg Piperacillin Sod/Tazobactam (Sod 3.375 gm/ Dextrose) 100 mls @ 200 mls/hr IVPB Q8H-IV [facility]; Protocol Last Admin: 03/19/18 10:00 Dose: 200 mls/hr Vancomycin HCl (Vancomycin 1 Gm Premix -) 1 gm in 200 mls @ 133.333 mls/hr IVPB BID@0400,1600 [facility]; Protocol Last Admin: 03/19/18 04:08 Dose: 133.333 mls/hr Lidocaine (Lidoderm Patch -) 1 patch TP DAILY [facility] Last Admin: 03/19/18 10:00 Dose: 1 patch Lidocaine (Lidoderm Patch -) 1 patch TP DAILY [facility] Last Admin: 03/19/18 10:00 Dose: 1 patch Lidocaine HCl (Xylocaine 2% Uro-Jet) 10 ml AL TID PRN PRN Reason: PAIN LEVEL 6-10 Metoprolol Succinate (Toprol Xl -) 50 mg PO BID [facility] Last Admin: 03/19/18 10:00 Dose: 50 mg Metoprolol Tartrate (Lopressor Injection -) 5 mg IVPUSH Q6H PRN PRN Reason: HR >120 Miscellaneous (Lidoderm Patch Removal) 1 each MC DAILY@0 [facility] Last Admin: 03/18/18 21:53 Dose: 1 each Miscellaneous (Lidoderm Patch Removal) 1 each MC DAILY@2200 [facility] Last Admin: 03/18/18 21:53 Dose: 1 each Pantoprazole Sodium (Protonix -) 20 mg PO BID [facility] Last Admin: 03/19/18 10:00 Dose: 20 mg Polyethylene Glycol (Miralax (For Daily Use) -) 17 gm PO BID [facility] Last Admin: 03/19/18 10:01 Dose: Not Given Thiamine HCl (Vitamin B1 -) 100 mg PO DAILY [facility] Last Admin: 03/19/18 10:00 Dose: 100 mg - Objective Vital Signs: Vital Signs Temperature 98.2 F 03/19/18 14:13 Pulse Rate 83 03/19/18 14:13 Respiratory Rate 22 03/19/18 14:13 Blood Pressure 121/68 03/19/18 14:13 O2 Sat by Pulse Oximetry (%) 97 03/18/18 21:00 Middle aged man sicxk looking HEENT: Mm moist, no anemia, PERRLA, EOMI NECK: No JVD No Bruit CHEST: CTA B/L CVS; S1S2 R no m/g/r ABD; Obese , non tender Bs + EXT: body pain with joints pain and swelling TICK INSPECTOR: AOx3 non focal Labs: CBC, BMP 03/18/18 07:51 03/18/18 07:51 INR, PTT INR 1.31 (0.83-1.09) H 03/18/18 07:51 Problem List - Problems (1) Back pain Assessment/Plan: H/O Back pain at Lumbar are evaluated by Neurosurgery abd ID CT guided biopsy aspirate cultures are -ve on empiric abx Code(s): M54.9 - DORSALGIA, UNSPECIFIED Qualifiers: Back pain location: low back pain Chronicity: unspecified Back pain laterality: right Sciatica presence: unspecified whether sciatica present Qualified Code(s): M54.5 - Low back pain (2) Shoulder pain Assessment/Plan: F /U X ray shoulder pain control Code(s): M25.519 - PAIN IN UNSPECIFIED SHOULDER Qualifiers: Chronicity: acute Laterality: right Qualified Code(s): M25.511 - Pain in right shoulder (3) GERD (gastroesophageal reflux disease) Assessment/Plan: Cont PPI Code(s): K21.9 - GASTRO-ESOPHAGEAL REFLUX DISEASE WITHOUT ESOPHAGITIS (4) HTN (hypertension) Assessment/Plan: Cont all home meds Code(s): I10 - ESSENTIAL (PRIMARY) HYPERTENSION (5) Chronic alcoholism Assessment/Plan: observe closely for DTs , Valium PRN and Thiamine will consider ECHO Cardiogram. Code(s): F10.20 - ALCOHOL DEPENDENCE, UNCOMPLICATED Qualifiers: Substance use status: unspecified alcohol-induced disorder Qualified Code(s ): F10.29 - Alcohol dependence with unspecified alcohol-induced disorder (6) Hemorrhoids, external Assessment/Plan: S/p colonoscopy no active bleeding hemorrhoids are ligated Code(s): K64.4 - RESIDUAL HEMORRHOIDAL SKIN TAGS (7) New onset a-fib Assessment/Plan: Not on Ac rate controlled Code(s): I48.91 - UNSPECIFIED ATRIAL FIBRILLATION
[2018-03-19] MEDS: LIDOCAINE PATCH REMOVAL MC SCH ×2 (21:56→21:57)
[2018-03-20] MEDS ORDERED: DEXTROSE 5%-WATER 100 ML IVPB ONE ×3 (00:48→17:29)
[2018-03-20] MEDS ORDERED: PIPERACILLIN/TAZOBACTAM 3.375 GM VIAL IVPB ONE ×3 (00:48→17:28)
[2018-03-20] MEDS: ACETAMINOPHEN WITH CODEINE 300MG/30MG TABLET PO PRN ×5 (00:59→20:14)
[2018-03-20] MEDS: PIPERACILLIN/TAZOB 3.375 GM 3.375 GM in DEXTROSE 5%-WATER 100 ML IVPB SCH ×3 (01:50→17:45)
[2018-03-20] MEDS: VANCOMYCIN 1 GM PREMIX - 1 GM/200 ML BAG IVPB SCH ×2 (03:41→15:59)
[2018-03-20] MEDS: GABAPENTIN 300 MG CAPSULE (FP) PO SCH ×3 (06:43→23:12)
[2018-03-20 08:02] LABS: BASO % 0.7 % (0-2.0); EOS % 1.3 % (0-4.5); HEMOGLOBIN 8.8 GM/dL (11.7-16.9); LYMPH % 12.3 % (8-40); MCH 28.6 pg (25.7-33.7); MCHC 33.9 g/dl (32.0-35.9); MEAN CELL VOLUME 84.6 fl (80-96); NEUT % 79.7 % (42.8-82.8); PLATELET COUNT 489 K/MM3 (134-434); RBC 3.07 M/mm3 (4.00-5.60); RDW 18.4 % (11.9-15.9); WHITE BLOOD COUNT 16.6 K/mm3 (4.0-10.0)
[2018-03-20 08:12] LABS: ANION GAP 11 (8-16); BLOOD UREA NITROGEN 16 mg/dL (7-18); CALCIUM 10.5 mg/dL (8.5-10.1); CHLORIDE 103 mmol/L (98-107); CO2 22 mmol/L (21-32); CREATININE 1.1 mg/dL (0.7-1.3); GLUCOSE,RANDOM 81 mg/dL (74-106); SGPT/ALT 32 U/L (12-78); SODIUM 136 mmol/L (136-145)
[2018-03-20 08:14] LABS: ALK PHOS 562 U/L (45-117); BILIRUBIN,TOTAL 1.9 mg/dL (0.2-1.0); TOT PROT 8.1 g/dl (6.4-8.2)
[2018-03-20 08:15] LABS: SGOT/AST 38 U/L (15-37)
[2018-03-20] MEDS ORDERED: PT OWN MED DRAWER 7, Y5N ONE ×4 (09:55→21:16)
[2018-03-20] MEDS: PANTOPRAZOLE 20 MG TABLET (FP) PO SCH ×2 (10:47→23:11)
[2018-03-20] MEDS: THIAMINE HCL 100 MG TABLET (FP) PO SCH (10:47)
[2018-03-20] MEDS: LIDOCAINE 5% TOPICAL PATCH TP SCH ×2 (10:47)
[2018-03-20] MEDS: POLYETHYLENE GLYCOL 3350 119 GM BTL PO SCH ×2 (10:48→21:40)
--- NOTE | 2018-03-20 11:46 | PN ---
Progress Note, Physician Chief Complaint: back pain History of Present Illness: denies palpitations, cp, sob, presyncope admits to etoh at home. denies any black-outs, falls/traumua, or fights when drunk - Current Medication List Current Medications: Active Medications Acetaminophen (Tylenol -) 325 mg PO Q4H PRN PRN Reason: PAIN SCALE 5-10 Last Admin: 03/17/18 17:12 Dose: 325 mg Acetaminophen/Codeine Phosphate (Tylenol # 3 -) 2 tab PO Q4H PRN PRN Reason: PAIN LEVEL 6-10 Last Admin: 03/20/18 10:50 Dose: 2 tab Gabapentin (Neurontin -) 300 mg PO TID [facility] Last Admin: 03/20/18 06:43 Dose: 300 mg Piperacillin Sod/Tazobactam (Sod 3.375 gm/ Dextrose) 100 mls @ 200 mls/hr IVPB Q8H-IV [facility]; Protocol Last Admin: 03/20/18 10:46 Dose: 200 mls/hr Vancomycin HCl (Vancomycin 1 Gm Premix -) 1 gm in 200 mls @ 133.333 mls/hr IVPB BID@0400,1600 [facility]; Protocol Last Admin: 03/20/18 03:41 Dose: 133.333 mls/hr Lidocaine (Lidoderm Patch -) 1 patch TP DAILY [facility] Last Admin: 03/20/18 10:47 Dose: 1 patch Lidocaine (Lidoderm Patch -) 1 patch TP DAILY [facility] Last Admin: 03/20/18 10:47 Dose: 1 patch Lidocaine HCl (Xylocaine 2% Uro-Jet) 10 ml [place] TID PRN PRN Reason: PAIN LEVEL 6-10 Metoprolol Succinate (Toprol Xl -) 50 mg PO BID [facility] Last Admin: 03/20/18 10:47 Dose: 50 mg Metoprolol Tartrate (Lopressor Injection -) 5 mg IVPUSH Q6H PRN PRN Reason: HR >120 Miscellaneous (Lidoderm Patch Removal) 1 each MC DAILY@2200 [facility] Last Admin: 03/19/18 21:56 Dose: 1 each Miscellaneous (Lidoderm Patch Removal) 1 each MC DAILY@2200 [facility] Last Admin: 03/19/18 21:57 Dose: 1 each Pantoprazole Sodium (Protonix -) 20 mg PO BID [facility] Last Admin: 03/20/18 10:47 Dose: 20 mg Polyethylene Glycol (Miralax (For Daily Use) -) 17 gm PO BID [facility] Last Admin: 03/20/18 10:48 Dose: Not Given Thiamine HCl (Vitamin B1 -) 100 mg PO DAILY [facility] Last Admin: 03/20/18 10:47 Dose: 100 mg - Objective Vital Signs: Vital Signs Temperature 98.5 F 03/20/18 07:00 Pulse Rate 83 03/20/18 07:00 Respiratory Rate 20 03/20/18 07:00 Blood Pressure 134/61 03/20/18 07:00 O2 Sat by Pulse Oximetry (%) 97 03/19/18 21:00 Constitutional: Yes: No Distress, Calm, Obese Cardiovascular: Yes: Regular Rate and Rhythm, S1, S2. No: Gallop, Murmur Respiratory: Yes: Regular, CTA Bilaterally. No: Accessory Muscle Use Extremities: No: Cold Edema: No Neurological: Yes: Alert, Oriented Psychiatric: No: Agitated Labs: CBC, BMP 03/20/18 06:30 03/20/18 06:30 INR, PTT INR 1.31 (0.83-1.09) H 03/18/18 07:51 Assessment/Plan ecg: sr, nl intervals, no ishcemic changes echo 03/2018: nl lv, rv tds, no sig valve path cxr: no chf a/p: 57 m htn here with low back pain. LGI bleeding - dr chang note reviewed--bleeding source internal hemorrhoids, now ligated. had large colon polyp removed. - ok to resume AC after 5 days postop if no ongoing bleeding (i.e. 03/23) - plan to start Eliquis at that time, if stable afib: -new onset afib with rvr, now back in sr -cont toprol 50 bid -echo unremarkable -chadsvasc 1, ASA vs AC both reasonable options--Eliquis to be resumed as per above plan -disc'd with pt today the potential risks of etoh abuse re: incr bleeding on AC , elieser if falls/fights. he verbalized understanding of the indication for AC ( cva prevention) and the potential risks, and stated he has no h/o the above high -risk behaviors. -i rec'd we start AC once clear from post-polypectomy standpoint, and that he f/ u with us once out of SNF to reassess risk/benefit of ongoing AC--he verbalized agreement with this plan. -given CHADS VASC on low side, would have low threshold to change to ASA only if engages in hi risk behavior. otherwise, favor maximizing cva prevention in him with NOAC, given ASA only minimally effective htn: -bp controlled -cont current meds vertebral osteo: -plan for prolonged outpt abx, per ID etoh abuse: -counselled on moderation/cessation--as above
[2018-03-20] MEDS: LIDOCAINE PATCH REMOVAL MC SCH ×2 (23:12)
[2018-03-21] MEDS ORDERED: PIPERACILLIN/TAZOBACTAM 3.375 GM VIAL IVPB ONE ×3 (01:32→18:31)
[2018-03-21] MEDS ORDERED: DEXTROSE 5%-WATER 100 ML IVPB ONE ×3 (01:33→18:31)
[2018-03-21] MEDS: PIPERACILLIN/TAZOB 3.375 GM 3.375 GM in DEXTROSE 5%-WATER 100 ML IVPB SCH ×3 (02:39→18:32)
[2018-03-21] MEDS: ACETAMINOPHEN WITH CODEINE 300MG/30MG TABLET PO PRN (02:43)
[2018-03-21] MEDS: VANCOMYCIN 1 GM PREMIX - 1 GM/200 ML BAG IVPB SCH ×2 (05:15→18:30)
[2018-03-21] MEDS: GABAPENTIN 300 MG CAPSULE (FP) PO SCH ×3 (05:45→21:33)
[2018-03-21] MEDS: ACETAMINOPHEN 325 MG TABLET (FP) PO PRN ×3 (10:28→22:40)
[2018-03-21] MEDS: THIAMINE HCL 100 MG TABLET (FP) PO SCH (10:29)
[2018-03-21] MEDS: PANTOPRAZOLE 20 MG TABLET (FP) PO SCH ×2 (10:29→21:33)
[2018-03-21] MEDS: POLYETHYLENE GLYCOL 3350 119 GM BTL PO SCH ×2 (10:29→21:32)
[2018-03-21] MEDS: LIDOCAINE 5% TOPICAL PATCH TP SCH ×2 (10:29)
--- NOTE | 2018-03-21 11:55 | PN ---
Progress Note, Physician Chief Complaint: C/O pain Lt wrist History of Present Illness: On IV antibiotics for possible vertibral ostio New on set Afib GI bleeding - Current Medication List Current Medications: Active Medications Acetaminophen (Tylenol -) 325 mg PO Q4H PRN PRN Reason: PAIN SCALE 5-10 Last Admin: 03/21/18 10:28 Dose: 325 mg Gabapentin (Neurontin -) 300 mg PO TID [facility] Last Admin: 03/21/18 05:45 Dose: 300 mg Piperacillin Sod/Tazobactam (Sod 3.375 gm/ Dextrose) 100 mls @ 200 mls/hr IVPB Q8H-IV [facility]; Protocol Last Admin: 03/21/18 10:29 Dose: 200 mls/hr Vancomycin HCl (Vancomycin 1 Gm Premix -) 1 gm in 200 mls @ 133.333 mls/hr IVPB BID@0400,1600 [facility]; Protocol Last Admin: 03/21/18 05:15 Dose: 133.333 mls/hr Lidocaine (Lidoderm Patch -) 1 patch TP DAILY [facility] Last Admin: 03/21/18 10:29 Dose: 1 patch Lidocaine (Lidoderm Patch -) 1 patch TP DAILY [facility] Last Admin: 03/21/18 10:29 Dose: 1 patch Lidocaine HCl (Xylocaine 2% Uro-Jet) 10 ml [place] TID PRN PRN Reason: PAIN LEVEL 6-10 Metoprolol Succinate (Toprol Xl -) 50 mg PO BID [facility] Last Admin: 03/21/18 10:29 Dose: 50 mg Metoprolol Tartrate (Lopressor Injection -) 5 mg IVPUSH Q6H PRN PRN Reason: HR >120 Miscellaneous (Lidoderm Patch Removal) 1 each MC DAILY@2200 [facility] Last Admin: 03/20/18 23:12 Dose: 1 each Miscellaneous (Lidoderm Patch Removal) 1 each MC DAILY@2200 [facility] Last Admin: 03/20/18 23:12 Dose: 1 each Pantoprazole Sodium (Protonix -) 20 mg PO BID [facility] Last Admin: 03/21/18 10:29 Dose: 20 mg Polyethylene Glycol (Miralax (For Daily Use) -) 17 gm PO BID [facility] Last Admin: 03/21/18 10:29 Dose: Not Given Thiamine HCl (Vitamin B1 -) 100 mg PO DAILY [facility] Last Admin: 03/21/18 10:29 Dose: 100 mg - Objective Vital Signs: Vital Signs Temperature 97.9 F 03/21/18 06:00 Pulse Rate 85 03/21/18 06:00 Respiratory Rate 18 03/21/18 06:00 Blood Pressure 134/67 03/21/18 06:00 O2 Sat by Pulse Oximetry (%) 98 03/20/18 21:00 Constitutional: Yes: Mild Distress Eyes: Yes: WNL HENT: Yes: WNL Neck: Yes: WNL Cardiovascular: Yes: WNL Respiratory: Yes: WNL Gastrointestinal: Yes: Normal Bowel Sounds ...Rectal Exam: Yes: Deferred Genitourinary: Yes: WNL Breast(s): Yes: WNL Musculoskeletal: Yes: Back Pain Edema: No Neurological: Yes: Alert Psychiatric: Yes: Alert Labs: CBC, BMP 03/20/18 06:30 03/20/18 06:30 INR, PTT INR 1.31 (0.83-1.09) H 03/18/18 07:51 Assessment/Plan Picc line insertion
[2018-03-21] MEDS ORDERED: oxyCODONE HCL 5 MG TABLET PO PRN (12:31)
--- NOTE | 2018-03-21 13:20 | PATH ---
Surgical Pathology Report Patient Name: ABHINAV MONTAGUE [facility]. Rec. #: [id number] /Age/Gender: 1960 (Age: 57) / M Account: [id number] Location: [address] [place] [address] Taken: 03/17/2018 Received: 03/20/2018 Reported: 03/21/2018 Physicians: Nghia Devi M.D. Specimen(s) Received A: BX 2ND PORTION DUODENUM AND BULB B: BX ANTRUM C: BX DISTAL DESCENDING COLON POLYP Clinical History Rectal bleeding, anemia Postoperative diagnosis: Gretel esophagitis, erosive gastritis, colon polyp, internal hemorrhoids, diverticulosis Final Diagnosis A. DUODENUM, SECOND PORTION AND BULB, BIOPSY: DUODENAL MUCOSA WITH MILD ACUTE AND CHRONIC DUODENITIS. B. STOMACH, ANTRUM, BIOPSY: GASTRIC ANTRAL MUCOSA WITH MILD CHRONIC ACTIVE GASTRITIS. IMMUNOHISTOCHEMICAL STAIN FOR H. PYLORI IS NEGATIVE. C. DISTAL DESCENDING COLON, POLYP, POLYPECTOMY: TUBULAR ADENOMA WITH FOCAL ACUTE INFLAMMATION AND ULCERATION. Electronically Signed Reanna West M.D. Gross Description A. Received in formalin, labeled "biopsy second portion of duodenum and bulb" are 3 jones, irregular portions of soft tissue ranging from 0.1-0.4 cm. in greatest dimension. The specimens are submitted in toto in one cassette. B. Received in formalin, labeled "biopsy antrum" are 2 jones, irregular portions of soft tissue measuring 0.4 and 0.6 cm. in greatest dimension. The specimens are submitted in toto in one cassette. C. Received in formalin, labeled "distal descending colon polyp" is a jones, polypoid portion of soft tissue measuring 1.2 cm. in greatest dimension. The specimen is submitted in toto in one cassette. 03/20/2018 saudi03/20/2018
--- NOTE | 2018-03-21 13:21 | PN ---
Progress Note (short form) - Note Progress Note: cc: back pain s: denies palpitations, cp, sob, presyncope Current Medications Acetaminophen (Tylenol -) 325 mg PO Q4H PRN PRN Reason: PAIN SCALE 5-10 Last Admin: 03/21/18 10:28 Dose: 325 mg Gabapentin (Neurontin -) 300 mg PO TID [facility] Last Admin: 03/21/18 05:45 Dose: 300 mg Piperacillin Sod/Tazobactam (Sod 3.375 gm/ Dextrose) 100 mls @ 200 mls/hr IVPB Q8H-IV [facility]; Protocol Last Admin: 03/21/18 10:29 Dose: 200 mls/hr Vancomycin HCl (Vancomycin 1 Gm Premix -) 1 gm in 200 mls @ 133.333 mls/hr IVPB BID@0400,1600 [facility]; Protocol Last Admin: 03/21/18 05:15 Dose: 133.333 mls/hr Lidocaine (Lidoderm Patch -) 1 patch TP DAILY [facility] Last Admin: 03/21/18 10:29 Dose: 1 patch Lidocaine (Lidoderm Patch -) 1 patch TP DAILY [facility] Last Admin: 03/21/18 10:29 Dose: 1 patch Lidocaine HCl (Xylocaine 2% Uro-Jet) 10 ml ID TID PRN PRN Reason: PAIN LEVEL 6-10 Metoprolol Succinate (Toprol Xl -) 50 mg PO BID [facility] Last Admin: 03/21/18 10:29 Dose: 50 mg Metoprolol Tartrate (Lopressor Injection -) 5 mg IVPUSH Q6H PRN PRN Reason: HR >120 Miscellaneous (Lidoderm Patch Removal) 1 each MC DAILY@0 [facility] Last Admin: 03/20/18 23:12 Dose: 1 each Miscellaneous (Lidoderm Patch Removal) 1 each MC DAILY@2200 [facility] Last Admin: 03/20/18 23:12 Dose: 1 each Oxycodone HCl (Roxicodone -) 10 mg PO Q6H PRN PRN Reason: PAIN SCALE 6-10 Pantoprazole Sodium (Protonix -) 20 mg PO BID [facility] Last Admin: 03/21/18 10:29 Dose: 20 mg Polyethylene Glycol (Miralax (For Daily Use) -) 17 gm PO BID [facility] Last Admin: 03/21/18 10:29 Dose: Not Given Thiamine HCl (Vitamin B1 -) 100 mg PO DAILY [facility] Last Admin: 03/21/18 10:29 Dose: 100 mg - Objective Vital Signs Period Temp Pulse Resp BP Sys/Beasley Pulse Ox Last 24 Hr 97.9 F-99.1 F 85-95 18-18 112-137/62-78 98 Constitutional: Yes: No Distress, Calm, Obese Cardiovascular: Yes: Regular Rate and Rhythm, S1, S2. No: Gallop, Murmur Respiratory: Yes: Regular, CTA Bilaterally. No: Accessory Muscle Use Extremities: No: Cold Edema: No Neurological: Yes: Alert, Oriented Psychiatric: No: Agitated Assessment/Plan ecg: sr, nl intervals, no ishcemic changes echo 03/2018: nl lv, rv tds, no sig valve path cxr: no chf a/p: 57 m htn here with low back pain. LGI bleeding - dr chang note reviewed--bleeding source internal hemorrhoids, now ligated. had large colon polyp removed. - ok to start eliquis 5 days postop if no ongoing bleeding (i.e. 03/23) afib: -new onset afib with rvr, now back in sr -cont toprol 50 bid -echo unremarkable -chadsvasc 1, ASA vs AC both reasonable options--Eliquis to be resumed as per above plan - per Dr. Saab, discussed risks of EtOH abuse regarding increased bleed risk, falls, no h/o high risk behavior htn: -bp controlled -cont current meds vertebral osteo: -plan for prolonged outpt abx, per ID etoh abuse: -counselled on moderation/cessation--as above
[2018-03-21] MEDS: oxyCODONE HCL 5 MG TABLET PO PRN ×2 (16:15→22:38)
[2018-03-21] MEDS: LIDOCAINE PATCH REMOVAL MC SCH ×2 (21:33)
[2018-03-22] MEDS ORDERED: DEXTROSE 5%-WATER 100 ML IVPB ONE ×3 (01:03→17:12)
[2018-03-22] MEDS ORDERED: PIPERACILLIN/TAZOBACTAM 3.375 GM VIAL IVPB ONE ×3 (01:03→17:12)
[2018-03-22] MEDS: PIPERACILLIN/TAZOB 3.375 GM 3.375 GM in DEXTROSE 5%-WATER 100 ML IVPB SCH ×3 (01:58→17:17)
[2018-03-22] MEDS: VANCOMYCIN 1 GM PREMIX - 1 GM/200 ML BAG IVPB SCH ×2 (04:11→17:10)
[2018-03-22] MEDS: oxyCODONE HCL 5 MG TABLET PO PRN ×3 (04:18→18:48)
[2018-03-22] MEDS: ACETAMINOPHEN 325 MG TABLET (FP) PO PRN ×3 (04:19→18:47)
[2018-03-22] MEDS: GABAPENTIN 300 MG CAPSULE (FP) PO SCH ×3 (06:18→22:05)
--- NOTE | 2018-03-22 09:23 | PN ---
Progress Note, Physician Chief Complaint: Feels better History of Present Illness: Needs PICC line for IV antibiotics Will start [facility] tomorrow - Current Medication List Current Medications: Active Medications Acetaminophen (Tylenol -) 325 mg PO Q4H PRN PRN Reason: PAIN SCALE 5-10 Last Admin: 03/22/18 04:19 Dose: 325 mg Gabapentin (Neurontin -) 300 mg PO TID [facility] Last Admin: 03/22/18 06:18 Dose: 300 mg Piperacillin Sod/Tazobactam (Sod 3.375 gm/ Dextrose) 100 mls @ 200 mls/hr IVPB Q8H-IV [facility]; Protocol Last Admin: 03/22/18 01:58 Dose: 200 mls/hr Vancomycin HCl (Vancomycin 1 Gm Premix -) 1 gm in 200 mls @ 133.333 mls/hr IVPB BID@0400,1600 [facility]; Protocol Last Admin: 03/22/18 04:11 Dose: 133.333 mls/hr Lidocaine (Lidoderm Patch -) 1 patch TP DAILY [facility] Last Admin: 03/21/18 10:29 Dose: 1 patch Lidocaine (Lidoderm Patch -) 1 patch TP DAILY [facility] Last Admin: 03/21/18 10:29 Dose: 1 patch Lidocaine HCl (Xylocaine 2% Uro-Jet) 10 ml SD TID PRN PRN Reason: PAIN LEVEL 6-10 Metoprolol Succinate (Toprol Xl -) 50 mg PO BID [facility] Last Admin: 03/21/18 21:33 Dose: 50 mg Metoprolol Tartrate (Lopressor Injection -) 5 mg IVPUSH Q6H PRN PRN Reason: HR >120 Miscellaneous (Lidoderm Patch Removal) 1 each MC DAILY@2200 [facility] Last Admin: 03/21/18 21:33 Dose: 1 each Miscellaneous (Lidoderm Patch Removal) 1 each MC DAILY@2200 [facility] Last Admin: 03/21/18 21:33 Dose: 1 each Oxycodone HCl (Roxicodone -) 10 mg PO Q6H PRN PRN Reason: PAIN SCALE 6-10 Last Admin: 03/22/18 04:18 Dose: 10 mg Pantoprazole Sodium (Protonix -) 20 mg PO BID [facility] Last Admin: 03/21/18 21:33 Dose: 20 mg Polyethylene Glycol (Miralax (For Daily Use) -) 17 gm PO BID [facility] Last Admin: 03/21/18 21:32 Dose: 17 grams Thiamine HCl (Vitamin B1 -) 100 mg PO DAILY [facility] Last Admin: 03/21/18 10:29 Dose: 100 mg - Objective Vital Signs: Vital Signs Temperature 99.5 F 03/22/18 06:00 Pulse Rate 95 H 03/22/18 06:00 Respiratory Rate 20 03/22/18 06:00 Blood Pressure 126/91 03/22/18 06:00 O2 Sat by Pulse Oximetry (%) 98 03/21/18 21:00 Constitutional: Yes: No Distress Eyes: Yes: WNL HENT: Yes: WNL Neck: Yes: WNL Cardiovascular: Yes: WNL Respiratory: Yes: WNL Gastrointestinal: Yes: Normal Bowel Sounds ...Rectal Exam: Yes: Deferred Genitourinary: Yes: WNL Musculoskeletal: Yes: Muscle Weakness Edema: No Peripheral Pulses WNL: Yes Neurological: Yes: Alert Labs: CBC, BMP 03/20/18 06:30 03/20/18 06:30 INR, PTT INR 1.31 (0.83-1.09) H 03/18/18 07:51 Assessment/Plan Picc line insertion
[2018-03-22] MEDS ORDERED: PICC LINE 8 ML FLUSH PROTOCOL IVPUSH PRN (09:24)
[2018-03-22] MEDS ORDERED: PT OWN MED DRAWER 7, Y5N ONE (10:40)
[2018-03-22] MEDS: THIAMINE HCL 100 MG TABLET (FP) PO SCH (10:54)
[2018-03-22] MEDS: PANTOPRAZOLE 20 MG TABLET (FP) PO SCH ×2 (10:54→22:05)
[2018-03-22] MEDS: POLYETHYLENE GLYCOL 3350 119 GM BTL PO SCH ×2 (10:55→22:05)
[2018-03-22] MEDS: LIDOCAINE 5% TOPICAL PATCH TP SCH ×2 (10:56)
--- NOTE | 2018-03-22 11:29 | PN ---
Progress Note (short form) - Note Progress Note: cc: back pain s: denies palpitations, cp, sob, presyncope. has hip pain today Current Medications Acetaminophen (Tylenol -) 325 mg PO Q4H PRN PRN Reason: PAIN SCALE 5-10 Last Admin: 03/22/18 10:57 Dose: 325 mg Gabapentin (Neurontin -) 300 mg PO TID [facility] Last Admin: 03/22/18 06:18 Dose: 300 mg IV Flush (Picc Line Flush) 8 ml IVPUSH PRN PRN PRN Reason: Protocol Piperacillin Sod/Tazobactam (Sod 3.375 gm/ Dextrose) 100 mls @ 200 mls/hr IVPB Q8H-IV [facility]; Protocol Last Admin: 03/22/18 10:54 Dose: 200 mls/hr Vancomycin HCl (Vancomycin 1 Gm Premix -) 1 gm in 200 mls @ 133.333 mls/hr IVPB BID@0400,1600 [facility]; Protocol Last Admin: 03/22/18 04:11 Dose: 133.333 mls/hr Lidocaine (Lidoderm Patch -) 1 patch TP DAILY [facility] Last Admin: 03/22/18 10:56 Dose: 1 patch Lidocaine (Lidoderm Patch -) 1 patch TP DAILY [facility] Last Admin: 03/22/18 10:56 Dose: 1 patch Lidocaine HCl (Xylocaine 2% Uro-Jet) 10 ml HI TID PRN PRN Reason: PAIN LEVEL 6-10 Metoprolol Succinate (Toprol Xl -) 50 mg PO BID [facility] Last Admin: 03/22/18 10:54 Dose: 50 mg Metoprolol Tartrate (Lopressor Injection -) 5 mg IVPUSH Q6H PRN PRN Reason: HR >120 Miscellaneous (Lidoderm Patch Removal) 1 each MC DAILY@2200 [facility] Last Admin: 03/21/18 21:33 Dose: 1 each Miscellaneous (Lidoderm Patch Removal) 1 each MC DAILY@2200 [facility] Last Admin: 03/21/18 21:33 Dose: 1 each Oxycodone HCl (Roxicodone -) 10 mg PO Q6H PRN PRN Reason: PAIN SCALE 6-10 Last Admin: 03/22/18 10:56 Dose: 10 mg Pantoprazole Sodium (Protonix -) 20 mg PO BID [facility] Last Admin: 03/22/18 10:54 Dose: 20 mg Polyethylene Glycol (Miralax (For Daily Use) -) 17 gm PO BID [facility] Last Admin: 03/21/18 21:32 Dose: 17 grams Thiamine HCl (Vitamin B1 -) 100 mg PO DAILY [facility] Last Admin: 03/22/18 10:54 Dose: 100 mg - Objective Vital Signs Period Temp Pulse Resp BP Sys/Beasley Pulse Ox Last 24 Hr 99.4 F-99.6 F 93-100 18-20 108-136/71-91 98 Constitutional: Yes: No Distress, Calm, Obese Cardiovascular: Yes: Regular Rate and Rhythm, S1, S2. No: Gallop, Murmur Respiratory: Yes: Regular, CTA Bilaterally. No: Accessory Muscle Use Extremities: No: Cold Edema: No Neurological: Yes: Alert, Oriented Psychiatric: No: Agitated Assessment/Plan ecg: sr, nl intervals, no ishcemic changes echo 03/2018: nl lv, rv tds, no sig valve path cxr: no chf a/p: 57 m htn here with low back pain. LGI bleeding - dr chang note reviewed--bleeding source internal hemorrhoids, now ligated. had large colon polyp removed. - start eliquis 5 days postop if no ongoing bleeding, on 03/23 afib: -new onset afib with rvr, now back in sr -cont toprol 50 bid -echo unremarkable - start eliquis 03/23 if stable from bleeding perspective, as above - per Dr. Saab, discussed risks of EtOH abuse regarding increased bleed risk, falls, no h/o high risk behavior htn: -bp controlled -cont current meds vertebral osteo: -plan for prolonged outpt abx, per ID etoh abuse: -counselled on moderation/cessation--as above
--- NOTE | 2018-03-22 17:23 | PN ---
Progress Note, Physician History of Present Illness: Supine in bed No acute distress at rest Still with c/o low back pain, LE weakness Afebrile CRP improved Aspirate cultures no growth - Current Medication List Current Medications: Active Medications Acetaminophen (Tylenol -) 325 mg PO Q4H PRN PRN Reason: PAIN SCALE 5-10 Last Admin: 03/22/18 10:57 Dose: 325 mg Gabapentin (Neurontin -) 300 mg PO TID [facility] Last Admin: 03/22/18 15:00 Dose: 300 mg IV Flush (Picc Line Flush) 8 ml IVPUSH PRN PRN PRN Reason: Protocol Piperacillin Sod/Tazobactam (Sod 3.375 gm/ Dextrose) 100 mls @ 200 mls/hr IVPB Q8H-IV [facility]; Protocol Last Admin: 03/22/18 17:17 Dose: 200 mls/hr Vancomycin HCl (Vancomycin 1 Gm Premix -) 1 gm in 200 mls @ 133.333 mls/hr IVPB BID@0400,1600 [facility]; Protocol Last Admin: 03/22/18 17:10 Dose: 133.333 mls/hr Lidocaine (Lidoderm Patch -) 1 patch TP DAILY [facility] Last Admin: 03/22/18 10:56 Dose: 1 patch Lidocaine (Lidoderm Patch -) 1 patch TP DAILY [facility] Last Admin: 03/22/18 10:56 Dose: 1 patch Lidocaine HCl (Xylocaine 2% Uro-Jet) 10 ml AK TID PRN PRN Reason: PAIN LEVEL 6-10 Metoprolol Succinate (Toprol Xl -) 50 mg PO BID [facility] Last Admin: 03/22/18 10:54 Dose: 50 mg Metoprolol Tartrate (Lopressor Injection -) 5 mg IVPUSH Q6H PRN PRN Reason: HR >120 Miscellaneous (Lidoderm Patch Removal) 1 each MC DAILY@2200 [facility] Last Admin: 03/21/18 21:33 Dose: 1 each Miscellaneous (Lidoderm Patch Removal) 1 each MC DAILY@2200 [facility] Last Admin: 03/21/18 21:33 Dose: 1 each Oxycodone HCl (Roxicodone -) 10 mg PO Q6H PRN PRN Reason: PAIN SCALE 6-10 Last Admin: 03/22/18 10:56 Dose: 10 mg Pantoprazole Sodium (Protonix -) 20 mg PO BID [facility] Last Admin: 03/22/18 10:54 Dose: 20 mg Polyethylene Glycol (Miralax (For Daily Use) -) 17 gm PO BID [facility] Last Admin: 03/22/18 10:55 Dose: Not Given Thiamine HCl (Vitamin B1 -) 100 mg PO DAILY [facility] Last Admin: 03/22/18 10:54 Dose: 100 mg - Objective Vital Signs: Vital Signs Temperature 99.5 F 03/22/18 15:33 Pulse Rate 100 H 03/22/18 15:33 Respiratory Rate 20 03/22/18 15:33 Blood Pressure 121/73 03/22/18 15:33 O2 Sat by Pulse Oximetry (%) 98 03/22/18 09:00 Constitutional: Yes: No Distress, Obese Cardiovascular: Yes: Regular Rate and Rhythm, S1, S2 Respiratory: Yes: CTA Bilaterally Gastrointestinal: Yes: Normal Bowel Sounds, Soft Edema: Yes Labs: CBC, BMP 03/20/18 06:30 03/20/18 06:30 INR, PTT INR 1.31 (0.83-1.09) H 03/18/18 07:51 Assessment/Plan ? Recurrent vertebral osteomyelitis S/P New onset Afib Continue empiric vancomycin/ zosyn Day #16 Repeat vanco trough noted PICC for outpatient antibiotic therapy
--- NOTE | 2018-03-22 17:42 | PATH ---
Cytology Non-Gynecological Report Patient Name: ABHINAV MONTAGUE [facility]. Rec. #: [id number] /Age/Gender: 1960 (Age: 57) / M Account: [id number] Location: [address] [place] [address] Taken: 03/17/2018 Received: 03/21/2018 Reported: 03/22/2018 Physicians: Nghia Devi M.D. Specimen(s) Received ESOPHAGEAL BRUSH Clinical History Gretel esophagitis, erosive gastritis Final Diagnosis ESOPHAGEAL BRUSHING FOR CYTOLOGY: SATISFACTORY FOR EVALUATION. SQUAMOUS CELLS WITH REACTIVE CELLULAR CHANGES. GRETEL SPECIES. SCATTERED SQUAMOUS CELLS WITH REACTIVE CELLULAR CHANGES NOTED. NEUTROPHILS PRESENT. FUNGAL FORMS MORPHOLOGICALLY CONSISTENT WITH GRETEL SPECIES PRESENT. FEW BRONCHIAL CELLS AND RARE SHEETS OF COLUMNAR EPITHELIUM (GASTROINTESTINAL CONTAMINATION) NOTED. Electronically Signed Reanna West M.D. Gross Description Received one slide fixed in 95% alcohol. Received brush in 95% alcohol. Two additional slides prepared and Pap stained.
[2018-03-22] MEDS: LIDOCAINE PATCH REMOVAL MC SCH ×2 (22:05→22:06)
[2018-03-23] MEDS ORDERED: DEXTROSE 5%-WATER 100 ML IVPB ONE ×3 (00:15→13:15)
[2018-03-23] MEDS ORDERED: PIPERACILLIN/TAZOBACTAM 3.375 GM VIAL IVPB ONE ×3 (00:15→13:15)
[2018-03-23] MEDS: oxyCODONE HCL 5 MG TABLET PO PRN ×3 (00:54→13:05)
[2018-03-23] MEDS: ACETAMINOPHEN 325 MG TABLET (FP) PO PRN ×2 (00:55→06:56)
[2018-03-23] MEDS: PIPERACILLIN/TAZOB 3.375 GM 3.375 GM in DEXTROSE 5%-WATER 100 ML IVPB SCH ×2 (02:12→13:20)
[2018-03-23] MEDS: VANCOMYCIN 1 GM PREMIX - 1 GM/200 ML BAG IVPB SCH (03:41)
[2018-03-23] MEDS: GABAPENTIN 300 MG CAPSULE (FP) PO SCH ×2 (06:31→13:06)
--- NOTE | 2018-03-23 09:14 | DS ---
Physical Examination Vital Signs: Vital Signs Temperature 99.6 F 03/23/18 06:00 Pulse Rate 94 H 03/23/18 06:00 Respiratory Rate 20 03/23/18 06:00 Blood Pressure 146/82 03/23/18 06:00 O2 Sat by Pulse Oximetry (%) 98 03/22/18 21:00 Findings/Remarks: Admitted with possible ostiomylitis of spine On IV antibiotics Developed Afib on elaquis,had rectal bleeding Colonoscopy showed bleeding large polyp and hemorrhoids Elaqus was on hold,restarted Constitutional: Yes: No Distress Eyes: Yes: WNL HENT: Yes: WNL, Tonsillar Exudate Cardiovascular: Yes: Regular Rate and Rhythm Respiratory: Yes: Regular Gastrointestinal: Yes: WNL ...Rectal Exam: Yes: Deferred, Hemorrhoids/Internal Renal/: Yes: WNL Edema: No Integumentary: Yes: WNL ...Motor Strength: WNL Psychiatric: Yes: Alert Labs: CBC, BMP 03/20/18 06:30 03/20/18 06:30 Discharge Summary Reason For Visit: BACK PAIN Current Active Problems ANGELICA (acute kidney injury) (Acute) Abnormal liver function tests (Acute) Adrenal cortical adenoma of left adrenal gland (Acute) Back pain (Acute) Constipation (Acute) HTN (hypertension) (Acute) Hemorrhoids, external (Acute) Hypertension (Acute) New onset a-fib (Acute) New onset a-fib (Acute) Rectal bleeding (Acute) Shoulder pain (Acute) Condition: Guarded - Instructions Referrals: Jaskaran Aguayo MD [Primary Care Provider] - - Home Medications Comprehensive Discharge Medication List: Ambulatory Orders Amlodipine Besylate [Norvasc -] 10 mg PO DAILY 11/10/14 Atenolol [Tenormin -] 50 mg PO DAILY 11/10/14 Omeprazole 20 mg PO BID #10 tablet. 11/13/17
[2018-03-23] MEDS: THIAMINE HCL 100 MG TABLET (FP) PO SCH (10:03)
[2018-03-23] MEDS: PANTOPRAZOLE 20 MG TABLET (FP) PO SCH (10:03)
[2018-03-23] MEDS: POLYETHYLENE GLYCOL 3350 119 GM BTL PO SCH (10:04)
[2018-03-23] MEDS: LIDOCAINE 5% TOPICAL PATCH TP SCH ×2 (10:04)
[2018-03-23 15:29] VITALS: BP 104/61; PULSE 96; TEMP 98.6
== END 2018-03-23 15:40 | DRG 952 ==
LOC: JER 15:28 → INTOOBSV 20:34 → UNDOADMOB 20:34 → JERBED 20:34 → J7W 22:41 → JERBED 22:41 → J7W 03-02 09:50 → JERBED 03-02 09:50 → J7W 03-07 → OBSVTOIN 03-08 11:59 → JICU 03-09 01:09 → J4W 03-10 18:34 → J5S 03-15 19:07
PROVIDERS: ADMIT Internal Medicine; ATTEND Internal Medicine
PROC: 0Q903ZX Drainage of Lumbar Vertebra, Percutaneous Approach, Diagnostic (ICD-10-PCS; 2018-03-07)
PROC: 0DBK8ZX Excision of Ascending Colon, Via Natural or Artificial Opening Endoscopic, Diagnostic (ICD-10-PCS; 2018-03-17)
PROC: 06LY4CC Occlusion of Hemorrhoidal Plexus with Extraluminal Device, Percutaneous Endoscopic Approach (ICD-10-PCS; principal; 2018-03-17 13:15)
PROC: 02HV33Z Insertion of Infusion Device into Superior Vena Cava, Percutaneous Approach (ICD-10-PCS; 2018-03-23)
PROC: B518ZZA Fluoroscopy of Superior Vena Cava, Guidance (ICD-10-PCS; 2018-03-23)
PROC: B548ZZA Ultrasonography of Superior Vena Cava, Guidance (ICD-10-PCS; 2018-03-23)
DX: M46.20 Osteomyelitis of vertebra, site unspecified (principal); N17.9 Acute kidney failure, unspecified; I48.91 Unspecified atrial fibrillation; M51.16 Intervertebral disc disorders with radiculopathy, lumbar region; K62.5 Hemorrhage of anus and rectum; R94.5 Abnormal results of liver function studies; K64.4 Residual hemorrhoidal skin tags; K21.9 Gastro-esophageal reflux disease without esophagitis; G47.33 Obstructive sleep apnea (adult) (pediatric); F10.20 Alcohol dependence, uncomplicated; E66.9 Obesity, unspecified; Z68.37 Body mass index [BMI] 37.0-37.9, adult; I10 Essential (primary) hypertension; M10.9 Gout, unspecified; E78.5 Hyperlipidemia, unspecified; D12.4 Benign neoplasm of descending colon; K57.30 Diverticulosis of large intestine without perforation or abscess without bleeding; K64.8 Other hemorrhoids; M47.9 Spondylosis, unspecified; M25.511 Pain in right shoulder; M25.562 Pain in left knee; E78.00 Pure hypercholesterolemia, unspecified; K59.00 Constipation, unspecified
CPT/HCPCS: 36415; 36430; 36569; 62287; 71045-TC-FY; 72148-TC; 72149-TC; 74150-TC; 76098-TC-FY; 76380-TC; 77001-TC-FY; 80048; 80053; 80076; 81003; 81015; 82105; 82272; 82550; 82728; 82962; 82977; 83540; 83550; 83690; 83735; 84100; 84153; 84443; 84484; 84550; 85025; 85027; 85044; 85610; 85651; 85730; 86140; 86704; 86706; 86708; 86803; 86850; 86900; 86901; 86922; 87040; 87070; 87075; 87086; 87102; 87116; 87205; 87206; 87210; 87340; 87899; 88104; 88108; 88305-TC; 93005; 93010; 93306-TC; 93970-TC; 97116-GP; 97161-GP; 99284-25; C1751; G0378; G0480; J1644; J7030; P9038; P9058

== ENCOUNTER 2018-08-05 20:22 | Inpatient (IN) | payer OTHER ==
--- NOTE | 2018-08-05 21:12 | PDOC ---
History of Present Illness - General Chief Complaint: Back Pain Stated Complaint: SENT BY PCP Time Seen by Provider: 08/05/18 21:12 History Source: Patient, Old Records, Primary Care Provider Exam Limitations: No Limitations - History of Present Illness Initial Comments: HPI: 58 y/o male presenting to [facility] ER on referral from PCP Dr. Aguayo for admission for osteomyelitis of L5 vertebra. Pt endorses chronic lower back pain with h/o of recurrent spinal osteomyelitis. Last discharged from this facility on 2017 for similar symptoms. Pt underwent outpatient MRI on 08/03/2018, which showed signs concerning for lower lumbar osteomyelitis and possible septic arthritis. Denies loss of bowel, urinary retention, or saddle anesthesia. Denies numbness or tingling in lower extremities. Denies fevers or chills. Denies recent trauma to the area. Denies h/o of IV drug abuse or prosthetic heart valve. PCP: Dr. Aguayo Social Hx: - H/o EtOH abuse, no alcohol since 03/2018. No h/o of withdrawal seizures. Past History - Past Medical History Allergies/Adverse Reactions: Allergies Allergy/AdvReac Type Severity Reaction Status Date / Time No Known Allergies Allergy Verified 08/05/18 20:41 Home Medications: Ambulatory Orders Amlodipine Besylate [Norvasc -] 10 mg PO DAILY 11/10/14 Atenolol [Tenormin -] 50 mg PO DAILY 11/10/14 Omeprazole 20 mg PO BID #10 tablet. 11/13/17 Hydrocodone/Ibuprofen [Hydrocodone-Ibuprofen 10-200] 1 each PO QID 08/05/18 COPD: No GI Disorders: Yes (Gastritis) Disorders: Yes (Enlarged prostate) HTN: Yes Hypercholesterolemia: Yes - Immunization History Immunization Up to Date: No - Suicide/Smoking/Psychosocial Hx Smoking History: Never smoked Have you smoked in the past 12 months: No Information on smoking cessation initiated: No Hx Alcohol Use: No Drug/Substance Use Hx: No Substance Use Type: None Hx Substance Use Treatment: No (has never attended rehab or detox.) Review of Systems - Review of Systems Able to Perform ROS?: Yes Comments:: In addition to that documented in the HPI above, the additional ROS was obtained : Constitutional: Denies fevers or chills Eyes: Denies vision changes ENMT: Denies sore throat CV: Denies chest pain Resp: Denies SOB GI: Denies vomiting or diarrhea : Denies painful urination MSK: Denies recent trauma Skin: Denies new rashes Neuro: Denies new numbness or tingling or weakness Endocrine: Denies polyuria Heme: Denies bleeding or bruising *Physical Exam - Vital Signs Last Vital Signs Temp Pulse Resp BP Pulse Ox 98.0 F 67 16 121/75 100 08/05/18 20:39 08/05/18 20:39 08/05/18 20:39 08/05/18 20:39 08/05/18 20:39 - Physical Exam Comments: Constitutional: Well-developed, well-nourished, obese male in no acute distress or obvious discomfort. Found semi-fowlers on hospital bed. Alert and oriented x4. Answered all questions appropriately and completely. Speech was non-labored , non-pressured. Head: Normocephalic. No obvious external signs of trauma. Eyes: Sclerae white. EARS: Hearing grossly intact. NOSE: No nasal discharge. Neck: Supple, trachea is midline. Cardiovascular: Regular rate and regular rhythm. No murmur, rubs, clicks, or gallops. Peripheral pulses: Radial pulses full. Respiratory: Breathing unlabored. Equal chest rise and fall. Clear to auscultation bilaterally. No stridor, no wheezing, no rhonchi. Gastrointestinal: abdomen is soft, non-tender, non-distended. Neuro: Alert and oriented. Moving all four extremities spontaneously. Skin/MSK: Mild point tenderness on midline lower lumbar spine without grimace. No overlying lesions. Warm, dry, and intact. No bruising, rashes, or other lesions. No palpable nodules. : No R or L CVA tenderness. Psych: Affect: appropriate. Mood: normal. Moderate Sedation - Procedure Monitoring Vital Signs: Procedure Monitoring Vital Signs Temperature 98.0 F 08/05/18 20:39 Pulse Rate 67 08/05/18 20:39 Respiratory Rate 16 08/05/18 20:39 Blood Pressure 121/75 08/05/18 20:39 O2 Sat by Pulse Oximetry (%) 100 08/05/18 20:39 ED Treatment Course - LABORATORY CBC & Chemistry Diagram: 08/05/18 21:43 08/05/18 21:43 Medical Decision Making - Medical Decision Making *Reviewed vital signs, nursing notes, and prior visit documentation (if available). 58 y/o male presenting from Dr. Aguayo office for admission to Dr. Aguayo service for osteomyelitis of L5 vertebra. No warning flags for Cauda Equina syndrome. Afebrile. Vitals unremarkable for hypotension or tachycardia. 21:[address] Aguayo for requested admission to his service. Requested CBC, CMP, ESR, and CRP. Requested ID consult from Dr. French. 21:40 ED Attending discussed case with Dr. French. Suggested IV Vancyomycin and Zosyn for antibiotic therapy. Will evaluate pt on allan. Consult request placed. *DC/Admit/Observation/Transfer Diagnosis at time of Disposition: Osteomyelitis Qualifiers: Osteomyelitis type: unspecified type Osteomyelitis location: other site Qualified Code(s): M86.9 - Osteomyelitis, unspecified - Discharge Dispostion Condition at time of disposition: Good Decision to Admit order: Yes - Referrals - Patient Instructions - Post Discharge Activity
--- NOTE | 2018-08-05 21:31 | PDOC ---
Attending Attestation - HPI HPI: This patient is a 58 year old male who was reffered to the ER by his PCP for osteomyelitis in L5 vertebrae diagnosed on 08/03/18 via outpt MRI. Patient has had similar recurrence in past. He denies IV drug abuse, no h/o prosthetic valves. He states that his back pain has returned. Denies cauda equina symptoms. Denies numbness or tingling in lower extremities. Denies fevers or chills. Denies recent trauma to the area. ID: Dr. 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 He will be admitted to the hospital for further management with infectious disease consultation <Andrew Milan - Last Filed: 08/06/18 00:54> Heart Score/ECG Review - ECG Impressions Comment:: 08/06/18 00:53 EKG performed at 2313 demonstrates normal sinus rhythm no sick elevations or T- wave inversions. Interpreted by me. <Andrew Milan - Last Filed: 08/06/18 00:54>
[2018-08-05] MEDS ORDERED: VANCOMYCIN 1,500 MG in DEXTROSE 5%-WATER - 500 ML IVPB ONE (21:41)
[2018-08-05] MEDS ORDERED: PIPERACILLIN/TAZOB 3.375 GM 3.375 GM in DEXTROSE 5%-WATER - 50 ML IVPB ONE (21:42)
[2018-08-05] MEDS ORDERED: VANCOMYCIN 1 GRAM (PRE-DOCKED) 1,000 MG/250 ML BAG IVPB ONE (21:44)
[2018-08-05] MEDS ORDERED: VANCOMYCIN 500 MG VIAL (RESTRICTED TO ID ONLY) ONE (21:44)
[2018-08-05] MEDS ORDERED: PIPERACILLIN/TAZOB 3.375 GM 3.375 GM/50 ML BAG IVPB ONE (21:44)
[2018-08-05 23:17] LABS: BASO % 0.7 % (0-2.0); EOS % 2.4 % (0-4.5); HEMATOCRIT 31.7 % (35.4-49); HEMOGLOBIN 10.5 GM/dL (11.7-16.9); LYMPH % 35.2 % (8-40); MCH 24.7 pg (25.7-33.7); MCHC 33.1 g/dl (32.0-35.9); MEAN CELL VOLUME 74.6 fl (80-96); MEAN PLT VOLUME 10.2 fl (7.5-11.1); NEUT % 54.7 % (42.8-82.8); PLATELET COUNT 245 K/MM3 (134-434); RBC 4.25 M/mm3 (4.00-5.60); RDW 20.6 % (11.9-15.9); WHITE BLOOD COUNT 8.4 K/mm3 (4.0-10.0)
[2018-08-05 23:56] LABS: ANISOCYTOSIS 2+; MACROCYTOSIS 1+; PLATELET ESTIMATE ADEQUATE
[2018-08-06 00:56] LABS: ALBUMIN 3.3 g/dl (3.4-5.0); ALK PHOS 410 U/L (45-117); ANION GAP 9 MMOL/L (8-16); BILIRUBIN,TOTAL 0.4 mg/dL (0.2-1); BLOOD UREA NITROGEN 19 mg/dL (7-18); CALCIUM 9.2 mg/dL (8.5-10.1); CHLORIDE 107 mmol/L (98-107); CO2 20 mmol/L (21-32); CREATININE 1.3 mg/dL (0.55-1.3); GLUCOSE,RANDOM 87 mg/dL (74-106); SGOT/AST 28 U/L (15-37); SGPT/ALT 17 U/L (13-61); SODIUM 136 mmol/L (136-145); TOT PROT 8.6 g/dl (6.4-8.2)
[2018-08-06 01:22] VITALS: BMI 34.2
[2018-08-06 01:23] LABS: POTASSIUM 4.3 mmol/L (3.5-5.1)
[2018-08-06 01:26] LABS: ERYTHROCYTE SEDIMENTATION RATE 44 mm/hr (0-20)
--- NOTE | 2018-08-06 13:13 | HP ---
DATE OF ADMISSION: 08/05/2018 DATE OF DICTATION: 08/06/2018 This is a 58-year-old male known to have osteomyelitis of L5 vertebra; was admitted here in the past 8 years ago and then again 6 months ago with back pain and he was on IV antibiotics for 6 weeks; now comes back again to the office with back pain. MRI done showed questionable osteomyelitis, so got admitted. His CRP and ESR were high when I did it 3 weeks ago. He is also known to have hypertension, on blood pressure medications. The patient is also an alcohol abuser, but he says now he is not drinking too much. FAMILY HISTORY: He is not living with his ; has grown-up children. PHYSICAL EXAMINATION: Vital Signs: Today, blood pressure 140/80, pulse 80, respirations 20, temperature 98. HEENT: Unremarkable. Neck: Supple. No JVD. Lungs: Clear. Heart: S1, S2 normal. No S3, S4. Abdomen: Soft. Legs: No edema. Neurologic: Grossly normal. Range of movements of the legs within normal limits. LABORATORY REPORTS: WBC 8.4, hemoglobin 10.5, hematocrit 31.7. Chemistry: Electrolytes are normal, creatinine 1.3, AST and ALT normal, alkaline phosphatase 410. C-reactive protein 0.9. ESR 44. MRI showed possible osteomyelitis. IMPRESSION: Osteomyelitis. PLAN: ID consult. May need prolonged course of IV antibiotics. Blood pressure. Nghia [id number]
--- NOTE | 2018-08-06 13:17 | CON.ID ---
Consult - History of Present Illness History of Present Illness: 58 y.o. male with PMH of AFIB, HTN, HLD, BPH, and Lumbar OM/discitis treated in 2009 and in March of 2018 for which he completed 6 wks of IV antibiotics presents with lower back "stiffness"/pain for the past month. He was seen by his PMD as outpatient who noted that he had ESR/CRP elevation. MRI was done on which revealed lumbar inflammation vs infection/septic discitis and patient was sent to the ER. Pt states that he normally takes oxycodone for chronic back pain. C/o back "stiffness" with pain at 2/10 intensity that increases to 5/10 with ambulation. He normally uses a walker to ambulate. He denies fever/chills, leg weakness, urinary/bowel habit abnormalities. In the ER patient was afebrile with normal vital signs, without leukocytosis. ESR 44 and CRP 0.9 while off antibiotics. He has no other complaints. Pt has been followed by Dr. Conklin as his neurosurgeon. - History Source History Provided By: Patient, Medical Record Limitations to Obtaining History: No Limitations - Past Medical History Cardio/Vascular: Yes: AFIB, HTN, Hyperlipdemia Gastrointestinal: Yes: Pancreatitis, GERD Hepatobiliary: Yes: Cholelithiasis, Other (alcoholic liver disease) Renal/: Yes: BPH Musculoskeletal: Yes: Chronic low back pain (vertebral osteomyelitis and paraspinal abscess 2010) Dermatology: Yes: Other (rhinophyma ) - Past Surgical History Past Surgical History: Yes: None - Alcohol/Substance Use Hx Alcohol Use: No History of Substance Use: reports: Cocaine (snorted cocaine in the past) - Smoking History Smoking history: Never smoked Have you smoked in the past 12 months: No - Social History Usual Living Arrangement: Alone ADL: Independent 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 11/13/17 Hydrocodone/Ibuprofen [Hydrocodone-Ibuprofen 10-200] 1 each PO QID 08/05/18 Family Disease History - Family Disease History Family Disease History: CA: Brother ( prostate cancer), Other: Father ( 55 alcoholic cirrhosis), Mother ( 37 cerebral aneurysm) Review of Systems - Review of Systems Constitutional: reports: No Symptoms Eyes: reports: No Symptoms HENT: reports: No Symptoms Neck: reports: No Symptoms Cardiovascular: reports: No Symptoms Respiratory: reports: No Symptoms Gastrointestinal: reports: No Symptoms Genitourinary: reports: No Symptoms Musculoskeletal: reports: Back Pain (lower back pain) Integumentary: reports: No Symptoms Neurological: reports: No Symptoms Endocrine: reports: No Symptoms Hematology/Lymphatic: reports: No Symptoms Psychiatric: reports: No Symptoms Pain Intensity: 5 Physical Exam Vital Signs: Vital Signs Temperature 98.5 F 08/06/18 11:52 Pulse Rate 65 08/06/18 11:52 Respiratory Rate 21 H 08/06/18 11:52 Blood Pressure 140/69 08/06/18 11:52 O2 Sat by Pulse Oximetry (%) 99 08/06/18 09:00 Constitutional: Yes: No Distress, Calm Eyes: Yes: Conjunctiva Clear HENT: Yes: Atraumatic Neck: Yes: Supple Cardiovascular: Yes: Regular Rate and Rhythm Respiratory: Yes: CTA Bilaterally Gastrointestinal: Yes: Normal Bowel Sounds, Soft Musculoskeletal: Yes: Back Pain (spinal tenderness, no paraspinal bulging) Extremities: Yes: WNL Edema: LLE: 1+, RLE: 1+ Integumentary: Yes: WNL Neurological: Yes: Alert, Oriented Psychiatric: Yes: Alert Labs: CBC, BMP 08/05/18 21:43 08/05/18 21:43 Laboratory Tests 08/05/18 08/05/18 21:43 21:43 WBC 8.4 RBC 4.25 Hgb 10.5 L Hct 31.7 L D MCV 74.6 L MCH 24.7 L D MCHC 33.1 RDW 20.6 H Plt Count 245 D MPV 10.2 D Absolute Neuts (auto) 4.6 Neutrophils % 54.7 D Lymphocytes % 35.2 D Monocytes % 7.0 Eosinophils % 2.4 D Basophils % 0.7 Nucleated RBC % 0 Platelet Estimate Adequate Platelet Comment Polychromasia 1+ Anisocytosis 2+ Microcytosis 1+ Macrocytosis 1+ ESR 44 H Sodium 136 Potassium 4.3 Chloride 107 Carbon Dioxide 20 L Anion Gap 9 BUN 19 H Creatinine 1.3 Creat Clearance w eGFR 56.31 Random Glucose 87 Calcium 9.2 Total Bilirubin 0.4 AST 28 ALT 17 Alkaline Phosphatase 410 H C-Reactive Protein 0.9 H Total Protein 8.6 H Albumin 3.3 L Blood cultures - pending Imaging - Results MRI: Report Reviewed Problem List - Problems (1) ANGELICA (acute kidney injury) Code(s): N17.9 - ACUTE KIDNEY FAILURE, UNSPECIFIED (2) HTN (hypertension) Code(s): I10 - ESSENTIAL (PRIMARY) HYPERTENSION Assessment/Plan 58 y.o. male with multiple comorbidities treated for lumbar OM/septic discitis in 2009 and recently in March 2018 with 6 wks of IV antibiotics presenting with c/o lower back stiffness/pain. Seen by PMD and noted to have elevated esr/ crp 2 wks ago. MRI done 3 days ago shows inflammation vs infection of lower lumbar spine/diskitis R/O recurrence of Lumbar OM/septic discitis Chronic Lower back pain --- suggest hold off antibiotics for now -- pt afebrile, without leukocytosis, crp normal, esr mildly elevated -- follow up blood cultures sent -- recommend neurosurgical evaluation, may need lumbar biopsy/culture continue monitor above d/w Dr. Aguayo
[2018-08-06] MEDS: CODEINE SO4 30 MG TABLET PO PRN ×2 (13:41→21:03)
--- NOTE | 2018-08-06 15:40 | PN ---
Progress Note (short form) - Note Progress Note: NEUROSURGERY Pt seen previously on 2 episodes of LBP. H/o AFib, HTN, HLD, BPH, and OM/ discitis treated with emperic iv abx first in 2009 then in March 2018 presents with lower back "stiffness"/pain for the past month. Found by PMD with ESR/CRP elevation. MPt takes oxycodone for chronic back pain. C/o back "stiffness" with pain at 7/10 when first getting up but decreasing to 5 with walking; only 1-2/ 10 when lying down. Pain is better than last March before iv abx. Biopsy last March of L L4-5 facet was negative. Usually uses a walker to ambulate. He denies fever/chills, leg weakness, urinary/bowel dysfunction. PMH: AFib , HTN, HLD, BPH, and OM/discitis Meds- Norvasc, atenolol, oxycodone prn ROS - negative CV/pulm/HEENT/GI//onc/psych/neuro/derm issues except for the above; no systemic malignancy So Hx: non-smoker; no EtOH; retired PE: Tmax 98.6, VSS; O2 sat 99% HEENT- NC/AT; Neck- supple; Cor- RR; Lungs- CTA; Abd- obese, benign; Ext- no sign of DVT CN- intact II-XII; Motor- 5/5 B LE except R EHL 4/5; Sensation- decreased distal vibration R L5; DTR- hyporeflexic B LE; Cerebellar- intact B FTN Back - B paraspinal muscle spasm ; negative SLR B LS spine MRI wiht jordyn ()- mild L5-S1 disc space enhancement; B L4-5 > L5- S1 facet enhancement (worst L L4-5 facet) LS spine MRI with jordyn- multilevel DDD, worst at L5-S1; moderate B L5-S1 foramenal stenosis; facet arthrosis; enhancing L5-S1 endplates and epidural enhancement S1-3; L L4-5 facet enhancement improved WBC 8.4; ESR 44, CRP 0.9; BUN 19, Cr 1.3; blood culture pending H/o presumed L5-S1 discitis and osteomyelitis treated on two different occasions with full course iv abx Presently clinical symptoms are mild and at baseline (improved c/w prior episode before iv abx), with WBC and CRP in the normal range and ESR only mildly elevated Lumbar support when up F/u blood culture results, doubt it would be positive Consider nuclear bone scan to r/o acute infectious process Check UA/urine culture As patient had undergone CT guided IR biopsy without + results, additional biopsy is unlikely helpful The only option left is more invasive and extensive, in terms of complete discectomy to clear disc space and interbody fusion; patient feels that would be too much for him and would not be interested anyway Pros and cons of treatment approaches discussed All questions answered
--- NOTE | 2018-08-06 16:43 | EKG ---
Test Reason : Blood Pressure : / mmHG Vent. Rate : 062 BPM Atrial Rate : 062 BPM P-R Int : 178 ms QRS Dur : 086 ms QT Int : 432 ms P-R-T Axes : 036 022 055 degrees QTc Int : 438 ms NORMAL SINUS RHYTHM NORMAL ECG WHEN COMPARED WITH ECG OF 08-MAR-2018 23:21, SINUS RHYTHM HAS REPLACED ATRIAL FIBRILLATION VENT. RATE HAS DECREASED BY 78 BPM Confirmed by MD MINDA, GEORGE ([id number]) on 08/06/2018 4:43:32 PM Referred By: Confirmed By:GEORGE PERLA MD
[2018-08-06 19:27] LABS: URINE APPEARANCE CLEAR; URINE BILIRUBIN NEGATIVE (<2.0 mg/dL); URINE COLOR STRAW; URINE GLUCOSE (UA) NEGATIVE (NEGATIVE); URINE KETONE NEGATIVE (NEGATIVE); URINE LEUK ESTERASE NEGATIVE (NEGATIVE); URINE NITRITE NEGATIVE (NEGATIVE); URINE PROTEIN NEGATIVE (NEGATIVE); URINE UROBILINOGEN NEGATIVE mg/dL (0.2-1.0)
[2018-08-07] MEDS: CODEINE SO4 30 MG TABLET PO PRN ×3 (06:33→20:16)
--- NOTE | 2018-08-07 09:35 | PN ---
Progress Note (short form) - Note Progress Note: NEUROSURGERY Tmax 98.3, downstairs for studies Denied fever/chills PMH: AFib , HTN, HLD, BPH, and OM/discitis PE: HEENT- NC/AT; Neck- supple; Cor- RR; Lungs- CTA; Abd- obese, benign; Ext- no sign of DVT CN- intact II-XII; Motor- 5/5 B LE except R EHL 4/5; Sensation- decreased distal vibration R L5; DTR- hyporeflexic B LE; Cerebellar- intact B FTN Back - B paraspinal muscle spasm ; negative SLR B LS spine MRI wiht jordyn ()- mild L5-S1 disc space enhancement; B L4-5 > L5- S1 facet enhancement (worst L L4-5 facet) LS spine MRI with jordyn- multilevel DDD, worst at L5-S1; moderate B L5-S1 foramenal stenosis; facet arthrosis; enhancing L5-S1 endplates and epidural enhancement S1-3; L L4-5 facet enhancement improved WBC 8.4; ESR 44, CRP 0.9; BUN 19, Cr 1.3; blood culture pending UA negative, urine culture pending H/o presumed L5-S1 discitis and osteomyelitis treated on two different occasions with full course iv abx Presently clinical symptoms are mild and at baseline (improved c/w prior episode before iv abx), with WBC and CRP in the normal range and ESR only mildly elevated For nuclear triphase bone scan to r/o acute infectious process As patient had undergone CT guided IR biopsy (most recently ) without + results, additional biopsy is unlikely helpful The only option left is more invasive and extensive, in terms of complete L5- S1 discectomy to clear disc space and interbody fusion; patient feels that would be too much for him and would not be interested in surgery Pros and cons of treatment approaches discussed previously Care d/w Dr Mccray
--- NOTE | 2018-08-07 09:48 | PN ---
Progress Note, Physician Chief Complaint: pt seen and examined Pt is afebrile Neuro surgery note appreciated Pt is awaiting fortriphasic bone scan to r/o acute infectious process ID note appreciated\ Pt is OFF Antibiotics - Current Medication List Current Medications: Active Medications Amlodipine Besylate (Norvasc -) 10 mg PO DAILY [facility] Atenolol (Tenormin -) 50 mg PO DAILY [facility] Codeine Sulfate (Codeine Sulfate -) 60 mg PO Q6H PRN PRN Reason: BACK PAIN Last Admin: 08/07/18 06:33 Dose: 60 mg - Objective Vital Signs: Vital Signs Temperature 98.3 F 08/07/18 06:00 Pulse Rate 59 L 08/07/18 06:00 Respiratory Rate 18 08/07/18 06:00 Blood Pressure 114/74 08/07/18 06:00 O2 Sat by Pulse Oximetry (%) 98 08/06/18 21:00 Constitutional: Yes: No Distress Eyes: Yes: Conjunctiva Clear HENT: Yes: Atraumatic, Normocephalic Neck: Yes: WNL Cardiovascular: Yes: WNL, Regular Rate and Rhythm Respiratory: Yes: WNL, Regular Gastrointestinal: Yes: WNL, Normal Bowel Sounds Musculoskeletal: Yes: Back Pain, Other Extremities: Yes: WNL Edema: No Peripheral Pulses WNL: Yes Neurological: Yes: WNL, Alert, Oriented ...Motor Strength: WNL Psychiatric: Yes: WNL, Alert Labs: CBC, BMP 08/05/18 21:43 08/05/18 21:43 Assessment/Plan LBA R/O Lumbar spine?Discitis/ ?Osteomyelitis HTN BPH H/O osteomyelitis BACK PLAN Will f/u bone scan report Will f/u Neurosurgery rec Continue Pain meds and BP meds
[2018-08-07] MEDS: amLODIPine BESYLATE 10 MG TABLET (FP) PO SCH (13:56)
[2018-08-07] MEDS: ATENOLOL 50 MG TABLET (FP) PO SCH (13:56)
--- NOTE | 2018-08-07 14:20 | PN ---
Progress Note, Physician History of Present Illness: doing well no new issues had bone scan done - Current Medication List Current Medications: Active Medications Amlodipine Besylate (Norvasc -) 10 mg PO DAILY [facility] Last Admin: 08/07/18 13:56 Dose: 10 mg Atenolol (Tenormin -) 50 mg PO DAILY [facility] Last Admin: 08/07/18 13:56 Dose: 50 mg Codeine Sulfate (Codeine Sulfate -) 60 mg PO Q6H PRN PRN Reason: BACK PAIN Last Admin: 08/07/18 13:56 Dose: 60 mg - Objective Vital Signs: Vital Signs Temperature 98.3 F 08/07/18 06:00 Pulse Rate 59 L 08/07/18 06:00 Respiratory Rate 18 08/07/18 06:00 Blood Pressure 114/74 08/07/18 06:00 O2 Sat by Pulse Oximetry (%) 98 08/06/18 21:00 Constitutional: Yes: No Distress, Calm Cardiovascular: Yes: Regular Rate and Rhythm Respiratory: Yes: Regular, CTA Bilaterally Gastrointestinal: Yes: Normal Bowel Sounds, Soft Musculoskeletal: Yes: WNL Extremities: Yes: WNL Neurological: Yes: Alert, Oriented Psychiatric: Yes: Alert, Oriented Labs: CBC, BMP 08/05/18 21:43 08/05/18 21:43 Assessment/Plan Problem List - Problems (1) ANGELICA (acute kidney injury) Code(s): N17.9 - ACUTE KIDNEY FAILURE, UNSPECIFIED (2) HTN (hypertension) Code(s): I10 - ESSENTIAL (PRIMARY) HYPERTENSION Assessment/Plan 58 y.o. male with multiple comorbidities treated for lumbar OM/septic discitis in 2009 and recently in March 2018 with 6 wks of IV antibiotics presenting with c/o lower back stiffness/pain. Seen by PMD and noted to have elevated esr/ crp 2 wks ago. MRI done 3 days ago shows inflammation vs infection of lower lumbar spine/diskitis R/O recurrence of Lumbar OM/septic discitis Chronic Lower back pain will continue holding abx await for final results rest as per the team patient stable
[2018-08-08 08:08] LABS: BASO % 0.5 % (0-2.0); EOS % 3.2 % (0-4.5); HEMATOCRIT 34.7 % (35.4-49); HEMOGLOBIN 10.6 GM/dL (11.7-16.9); LYMPH % 34.4 % (8-40); MCH 23.3 pg (25.7-33.7); MCHC 30.4 g/dl (32.0-35.9); MEAN CELL VOLUME 76.5 fl (80-96); MEAN PLT VOLUME 9.7 fl (7.5-11.1); MONO % 7.5 % (3.8-10.2); NEUT % 54.4 % (42.8-82.8); PLATELET COUNT 205 K/MM3 (134-434); RBC 4.54 M/mm3 (4.00-5.60); WHITE BLOOD COUNT 8.2 K/mm3 (4.0-10.0)
[2018-08-08 08:35] LABS: ALBUMIN 3.3 g/dl (3.4-5.0); ALK PHOS 377 U/L (45-117); ANION GAP 9 MMOL/L (8-16); BILIRUBIN,TOTAL 0.6 mg/dL (0.2-1); BLOOD UREA NITROGEN 15 mg/dL (7-18); CALCIUM 9.7 mg/dL (8.5-10.1); CHLORIDE 107 mmol/L (98-107); CO2 23 mmol/L (21-32); GLUCOSE,RANDOM 88 mg/dL (74-106); POTASSIUM 3.7 mmol/L (3.5-5.1); SGOT/AST 14 U/L (15-37); SGPT/ALT 16 U/L (13-61); SODIUM 139 mmol/L (136-145); TOT PROT 8.3 g/dl (6.4-8.2)
--- NOTE | 2018-08-08 08:35 | PN ---
Progress Note (short form) - Note Progress Note: NEUROSURGERY Tmax 98.3, VSS Denied fever/chills LBP stiffness/soreness stable PE: HEENT- NC/AT; Neck- supple; Cor- RR; Lungs- CTA; Abd- obese, benign; Ext- no sign of DVT CN- intact II-XII; Motor- 5/5 B LE except R EHL 4/5; Sensation- decreased distal vibration R L5; DTR- hyporeflexic B LE; Cerebellar- intact B FTN Back - B paraspinal muscle spasm ; negative SLR B LS spine MRI wiht jordyn ()- mild L5-S1 disc space enhancement; B L4-5 > L5- S1 facet enhancement (worst L L4-5 facet) LS spine MRI with jordyn- multilevel DDD, worst at L5-S1; moderate B L5-S1 foramenal stenosis; facet arthrosis; enhancing L5-S1 endplates and epidural enhancement S1-3; L L4-5 facet enhancement improved Nuclear bone scan result pending WBC 8.2; ESR 44, CRP 0.9 UA negative, urine culture pending H/o presumed L5-S1 discitis and osteomyelitis treated on two different occasions with full course iv abx Presently clinical symptoms are mild and at baseline (improved c/w prior episode before iv abx), with WBC and CRP in the normal range and ESR only mildly elevated As patient had undergone CT guided IR biopsy (most recently ) without + results, additional biopsy is unlikely helpful unfortunately The only option left is more invasive and extensive, in terms of complete L5-S1 discectomy to clear disc space and interbody fusion; patient feels that would be too much for him and would not be interested in surgery Await final reading of triphase bone scan Pros and cons of treatment approaches discussed with pt and medical team
--- NOTE | 2018-08-08 09:46 | PN ---
Progress Note, Physician Chief Complaint: pt seen and examined,LBP stable Pt is afebrile Neuro surgery note appreciated awaiting triphasic bone scan report to r/o acute infectious process ID note appreciated\ Pt is OFF Antibiotics - Current Medication List Current Medications: Active Medications Amlodipine Besylate (Norvasc -) 10 mg PO DAILY [facility] Last Admin: 08/07/18 13:56 Dose: 10 mg Atenolol (Tenormin -) 50 mg PO DAILY [facility] Last Admin: 08/07/18 13:56 Dose: 50 mg Codeine Sulfate (Codeine Sulfate -) 60 mg PO Q6H PRN PRN Reason: BACK PAIN Last Admin: 08/07/18 20:16 Dose: 60 mg - Objective Vital Signs: Vital Signs Temperature 98.2 F 08/08/18 06:00 Pulse Rate 59 L 08/08/18 06:00 Respiratory Rate 18 08/08/18 06:00 Blood Pressure 111/62 08/08/18 06:00 O2 Sat by Pulse Oximetry (%) 98 08/07/18 09:00 Constitutional: Yes: No Distress Eyes: Yes: Conjunctiva Clear HENT: Yes: Atraumatic, Normocephalic Neck: Yes: Supple, Trachea Midline Cardiovascular: Yes: Regular Rate and Rhythm Respiratory: Yes: Regular, CTA Bilaterally Gastrointestinal: Yes: Normal Bowel Sounds Musculoskeletal: Yes: WNL Extremities: Yes: WNL Edema: No Peripheral Pulses WNL: Yes Neurological: Yes: WNL, Alert, Oriented ...Motor Strength: WNL Psychiatric: Yes: WNL, Alert Labs: CBC, BMP 08/08/18 07:45 08/08/18 07:45 Assessment/Plan LBA R/O Lumbar spine?Discitis/ ?Osteomyelitis HTN BPH H/O osteomyelitis BACK PLAN Will f/u bone scan report Will f/u Neurosurgery rec Continue Pain meds and BP meds
[2018-08-08] MEDS: CODEINE SO4 30 MG TABLET PO PRN ×2 (10:24→21:18)
[2018-08-08] MEDS: amLODIPine BESYLATE 10 MG TABLET (FP) PO SCH (10:27)
[2018-08-08] MEDS: ATENOLOL 50 MG TABLET (FP) PO SCH (10:27)
--- NOTE | 2018-08-08 13:25 | PN ---
Progress Note, Physician - Current Medication List Current Medications: Active Medications Amlodipine Besylate (Norvasc -) 10 mg PO DAILY [facility] Last Admin: 08/08/18 10:27 Dose: 10 mg Atenolol (Tenormin -) 50 mg PO DAILY [facility] Last Admin: 08/08/18 10:27 Dose: 50 mg Codeine Sulfate (Codeine Sulfate -) 60 mg PO Q6H PRN PRN Reason: BACK PAIN Last Admin: 08/08/18 10:24 Dose: 60 mg - Objective Vital Signs: Vital Signs Temperature 98.5 F 08/08/18 10:30 Pulse Rate 71 08/08/18 10:30 Respiratory Rate 18 08/08/18 10:30 Blood Pressure 116/63 08/08/18 10:30 O2 Sat by Pulse Oximetry (%) 98 08/07/18 09:00 Labs: CBC, BMP 08/08/18 07:45 08/08/18 07:45
[2018-08-09] MEDS: amLODIPine BESYLATE 10 MG TABLET (FP) PO SCH (09:35)
[2018-08-09] MEDS: CODEINE SO4 30 MG TABLET PO PRN (09:35)
[2018-08-09] MEDS: ATENOLOL 50 MG TABLET (FP) PO SCH (09:35)
--- NOTE | 2018-08-09 09:36 | PN ---
Progress Note, Physician Chief Complaint: pt seen and examined,LBP stable Pt is afebrile Neuro surgery note appreciated bone scan negative for osteomyelitis Pt is OFF Antibiotics - Current Medication List Current Medications: Active Medications Amlodipine Besylate (Norvasc -) 10 mg PO DAILY [facility] Last Admin: 08/08/18 10:27 Dose: 10 mg Atenolol (Tenormin -) 50 mg PO DAILY [facility] Last Admin: 08/08/18 10:27 Dose: 50 mg Codeine Sulfate (Codeine Sulfate -) 60 mg PO Q6H PRN PRN Reason: BACK PAIN Last Admin: 08/08/18 21:18 Dose: 60 mg - Objective Vital Signs: Vital Signs Temperature 98.2 F 08/09/18 06:56 Pulse Rate 70 08/09/18 06:56 Respiratory Rate 20 08/09/18 06:56 Blood Pressure 109/69 08/09/18 06:56 O2 Sat by Pulse Oximetry (%) 98 08/07/18 09:00 Constitutional: Yes: No Distress Eyes: Yes: Conjunctiva Clear HENT: Yes: Atraumatic Neck: Yes: Supple, Trachea Midline Cardiovascular: Yes: Regular Rate and Rhythm Respiratory: Yes: Regular, CTA Bilaterally Gastrointestinal: Yes: Normal Bowel Sounds, Soft Musculoskeletal: Yes: WNL Extremities: Yes: WNL Edema: No Peripheral Pulses WNL: Yes Neurological: Yes: WNL, Alert, Oriented ...Motor Strength: WNL Psychiatric: Yes: WNL, Alert Labs: CBC, BMP 08/08/18 07:45 08/08/18 07:45 Assessment/Plan LBA R/O Lumbar spine?Discitis/ ?Osteomyelitis HTN BPH H/O osteomyelitis BACK PLAN bone scan negative Will f/u Neurosurgery rec regarding d/c plan Continue Pain meds and BP meds
--- NOTE | 2018-08-09 11:16 | PN ---
Progress Note (short form) - Note Progress Note: NEUROSURGERY AF, VSS Prior documented 2 am temp of 103 belongs to another pt (confirmed with [employer]ER and RN) Denied fever/chills LBP stiffness/soreness stable PE: HEENT- NC/AT; Neck- supple; Cor- RR; Lungs- CTA; Abd- obese, benign; Ext- no sign of DVT CN- intact II-XII; Motor- 5/5 B LE except R EHL 4/5; Sensation- decreased distal vibration R L5; DTR- hyporeflexic B LE; Cerebellar- intact B FTN Back - B paraspinal muscle spasm ; negative SLR B LS spine MRI wiht jordyn ()- mild L5-S1 disc space enhancement; B L4-5 > L5- S1 facet enhancement (worst L L4-5 facet) LS spine MRI with jordyn- multilevel DDD, worst at L5-S1; moderate B L5-S1 foramenal stenosis; facet arthrosis; enhancing L5-S1 endplates and epidural enhancement S1-3; L L4-5 facet enhancement improved Nuclear bone scan- DDD/DJD lumbar and thoracic; no clear OM WBC 8.2; ESR 44, CRP 0.9 UA negative, urine culture negative H/o presumed L5-S1 discitis and osteomyelitis treated on two different occasions with full course iv abx Presently clinical symptoms are mild and at baseline (improved c/w prior episode before iv abx), with WBC and CRP in the normal range and ESR only mildly elevated The only option left is more invasive and extensive, in terms of complete L5-S1 discectomy to clear disc space and interbody fusion; patient feels that would be too much for him and would not be interested in surgery anyway Pros and cons of treatment approaches discussed with pt Pt desires to go home Will inform physicians if any changes Outpatient ID f/u
--- NOTE | 2018-08-09 13:00 | PN ---
Progress Note, Physician History of Present Illness: patient stable no new issues neurosurgery note noted - Current Medication List Current Medications: Active Medications Amlodipine Besylate (Norvasc -) 10 mg PO DAILY [facility] Last Admin: 08/09/18 09:35 Dose: 10 mg Atenolol (Tenormin -) 50 mg PO DAILY [facility] Last Admin: 08/09/18 09:35 Dose: 50 mg - Objective Vital Signs: Vital Signs Temperature 98.4 F 08/09/18 09:39 Pulse Rate 71 08/09/18 09:39 Respiratory Rate 08/09/18 09:39 Blood Pressure 123/74 08/09/18 09:39 O2 Sat by Pulse Oximetry (%) 98 08/07/18 09:00 Constitutional: Yes: No Distress, Calm Cardiovascular: Yes: Regular Rate and Rhythm Respiratory: Yes: Regular, CTA Bilaterally Gastrointestinal: Yes: Normal Bowel Sounds, Soft Musculoskeletal: Yes: Back Pain Extremities: Yes: WNL Neurological: Yes: Alert, Oriented Psychiatric: Yes: Alert, Oriented Labs: CBC, BMP 08/08/18 07:45 08/08/18 07:45 Assessment/Plan Problem List - Problems (1) ANGELICA (acute kidney injury) Code(s): N17.9 - ACUTE KIDNEY FAILURE, UNSPECIFIED (2) HTN (hypertension) Code(s): I10 - ESSENTIAL (PRIMARY) HYPERTENSION Assessment/Plan 58 y.o. male with multiple comorbidities treated for lumbar OM/septic discitis in 2009 and recently in March 2018 with 6 wks of IV antibiotics presenting with c/o lower back stiffness/pain. Seen by PMD and noted to have elevated esr/ crp 2 wks ago. MRI done 3 days ago shows inflammation vs infection of lower lumbar spine/diskitis R/O recurrence of Lumbar OM/septic discitis Chronic Lower back pain after looking at the result of imaging studies and neurosurgery thought process i am not going to treat the patient with any abx he will need to follow up with the primary rest continue current mgmt
[2018-08-09 14:59] VITALS: BP 112/65; PULSE 67; TEMP 97.9
--- NOTE | 2018-08-10 09:43 | DS ---
DATE OF ADMISSION: 08/05/2018 DATE OF DISCHARGE: 08/09/2018 Patient is a 58-year-old male with a history of hypertension, hyperlipidemia, benign prostatic hyperplasia, osteomyelitis and discitis of the lumbar spine, treated with umbilical IV, antibiotics. First in 2009 and then in March of 2018, presented with lower back pain, dizziness and pain for the past month. PMD did some blood work and found elevated ESR and CRP. Patient usually takes oxycodone for the chronic back pain. Because the pain was more, patient referred to the ER for further workup. Patient had a biopsy done of L4 facet. It was negative. Lumbar spine MRI without gadolinium in March 2018 showed L5-S1 disc space enhancement, L5-S1 facet enhancement. Because of the history of presumed L5-S1 discitis and osteomyelitis treated with 2 different with full dose of IV antibiotics. As per the neurosurgeon, the clinical symptoms were mild and at baseline. With the repeat CRP and ESR in the emergency room, it was only mildly elevated. So, recommended to do the blood culture and nuclear bone scan to rule out acute infectious process. In the ER, urine test was negative, and chemistry was normal, alkaline phosphatase , ALT/AST normal. Hematology shows WBC 8.4, ESR 44, and CRP 0.9. Patient was seen by the infectious disease physician because the patient was afebrile, normal vital signs, without leukocytosis, ESR 44, and CRP 0.9. Recommended to observe the patient off antibiotics, and patient admitted to rule out acute infection versus lumbar spine discitis, chronic back pain. Patient was given pain medicine and home medications. Triphasic bone scan done, and there was no evidence of osteomyelitis. Neurosurgeon discussed with noninvasive and extensive treatment option to the patient in terms of discectomy to clear the space and interbody fusion, and as per neurosurgeon, patient feels that it is too much for him and was not interested in surgery. Patient was discharged home on pain medicine and home medications, recommended to follow with neurosurgeon and primary. Patient was stable during the hospitalization and discharged in a stable condition, discharged to home. Recommended to follow with the PMD and neurosurgeon. Nghia [id number]
== END 2018-08-09 17:50 | disposition home or self-care (01) | DRG 347 ==
LOC: JER 20:22 → JERBED 21:45 → J5S 23:53
PROVIDERS: ADMIT Internal Medicine; ATTEND Internal Medicine
DX: M51.35 Other intervertebral disc degeneration, thoracolumbar region (principal); M46.46 Discitis, unspecified, lumbar region; N40.0 Benign prostatic hyperplasia without lower urinary tract symptoms; E78.00 Pure hypercholesterolemia, unspecified; E66.9 Obesity, unspecified; Z68.34 Body mass index [BMI] 34.0-34.9, adult; I10 Essential (primary) hypertension; I48.91 Unspecified atrial fibrillation; K21.9 Gastro-esophageal reflux disease without esophagitis; K80.20 Calculus of gallbladder without cholecystitis without obstruction; K70.9 Alcoholic liver disease, unspecified; L71.1 Rhinophyma; M46.26 Osteomyelitis of vertebra, lumbar region
CPT/HCPCS: 36415; 78315-TC; 80053; 81003; 85025; 85651; 86140; 87040; 87086; 93005; 93010; 99283-25; A9503